=== PATIENT | female | born 1940 | race Caucasian/White ===

== ENCOUNTER 2016-07-23 11:10 | Emergency (ER) | payer MEDICARE, OTHER ==
[~2016-07-23] VITALS: Ht 160 cm; Wt 72.4 kg
[~2016-07-23 11:10] MED LIST: AMLO10TA2 PO; ASPI-557 PO; AZAT50TA PO; CALC-1012; CLOP75TA; COLE625T PO; HYDR25TA PO; LACT10SO8 PO; LOSA50TA52 PO; MULT-57 PO; OMEP-122 PO; [UNRECOGNIZED DRUG - CODE] PO
[2016-07-23 11:11] VITALS: Ht 160 cm; Wt 72.4 kg
--- OUTSIDE RECORDS SUMMARY | 2016-07-23 11:14 | XMS REPORT | Continuity of Care Document ---
Author Author [facility] Organization [facility] Address Unknown Phone Unavailable Support Name Relationship Address Phone REBEKAH WRAY MD Caregiver [address] [place] [address] [place] [phone] WILLIAM MARRERO DO Caregiver [facility] [address] [place] [address] MERVAT SKAGGS MD Caregiver [address] [place] [address] [place] [phone] ASIF MYRICK Next Of Kin [address] [place], [place] [id number] Insurance Providers Payer Name Policy Number Subscriber Name Relationship Medicare [id number] Kaylee Easton 18 Self [employer] Other [id number] Kaylee Easton 18 Self Advance Directives Directive Response Recorded Date/Time Advanced Directives Type Living Will DPOA for Healthcare 12/26/13 10:54am Problems Medical Problems Problem Onset Date Status Valvular heart disease Unknown Active Tachy-lexis syndrome Unknown Active Atrial fibrillation with rapid ventricular response Unknown Active Medications Medication Dose Route Sig Days/Qty Instructions Order Date Discontinued Date Status Multivitamin 12/26/13 Active Clopidogrel Bisulfate DAILY 12/26/13 Active Aspirin 1 Tab PO DAILY 12/26/13 Active Hydrochlorothiazide 1 Tab PO GIVE WITH BREAKFAST 12/26/13 Active Azathioprine 150 DAILY 12/26/13 Active Lactulose 10 G PO DAILY 12/26/13 Active Losartan Potassium 50 Mg PO TWICE A DAY 12/26/13 Active Hydralazine HCl 1 Tab PO TWICE A DAY BEST TAKEN WITH MEALS. 12/26/13 Active Amlodipine Besylate 10 Mg PO BEDTIME 12/26/13 Active Omeprazole 20 Mg PO BEDTIME 12/26/13 Active Colesevelam HCl 1,875 Mg PO DAILY 12/26/13 Active Calcium Carb & Cit/Vitamin D3 BEDTIME 12/26/13 Active Social History Social History Problem Response Recorded Date/Time Smoking Status Never smoker 12/26/2013 11:47am Hx Alcohol Use No 12/26/2013 11:47am Query Response Start Date Stop Date Smoking Status Unknown if ever smoked Hospital Discharge Instructions No hospital discharge instructions. Plan of Care No plan of care. Functional Status Query Response Date Recorded Physical Hygiene Self December 26, 2013 11:47am Disabilities None December 26, 2013 11:47am Devices Used None December 26, 2013 11:47am Dressing Self December 26, 2013 11:47am Ambulation Self December 26, 2013 11:47am Diet Self December 26, 2013 11:47am Mental Status Alert Oriented December 26, 2013 1:37pm Disabilities None December 26, 2013 11:47am Devices Used None December 26, 2013 11:47am Physical Hygiene Self December 26, 2013 11:47am Dressing Self December 26, 2013 11:47am Ambulation Self December 26, 2013 11:47am Diet Self December 26, 2013 11:47am Allergies, Adverse Reactions, Alerts Allergen Type Severity Reaction Status Last Updated IVP DYE Allergy Severe Active 05/23/12 Immunizations Name Given Type Hx Tetanus, Diptheria, Pertussis skin intact Historical Hx Tetanus, Diptheria, Pertussis skin intact Historical Vital Signs Acute Vital Signs Vital Response Date/Time Temperature (Fahrenheit) 97.4 deg F (96.8 - 99.1) Temperature (Calculated Celsius) 36.69574 degrees C (36.0 - 37.3) Pulse Rate (adult) 61 bpm (60 - 100) Respiratory Rate 20 breaths/min (10 - 20) O2 Sat by Pulse Oximetry 100 % (90 - 100) Oxygen Flow Rate 2 L/min Blood Pressure 135/63 mm Hg Height 5 ft 2 in Weight 143 lb Body Mass Index 26.0 kg/m^2 Results Test Source Date Result Interp. Ref. Range Comments Alanine Aminotransferase (ALT/SGPT) December 26, 2013 11:06am 32 U/L N 9- 52 Albumin December 26, 2013 11:06am 4.7 G/DL N 3.5-5.0 Albumin/Globulin Ratio December 26, 2013 11:06am 1.3 RATIO N 1.1-2.2 Alkaline Phosphatase December 26, 2013 11:06am 123 U/L N 38-126 Anion Gap December 26, 2013 11:06am 13 MEQ/L N 5-15 Aspartate Amino Transf (AST/SGOT) December 26, 2013 11:06am 43 U/L H 14- 36 BUN/Creatinine Ratio December 26, 2013 11:06am 23 RATIO N 6-26 Basophils # (Auto) December 26, 2013 11:06am 0.0 T/MM3 N 0-0.2 Basophils (%) (Auto) December 26, 2013 11:06am 0.9 % N 0-2 Blood Urea Nitrogen December 26, 2013 11:06am 21.0 MG/DL H 7-17 Calcium Level December 26, 2013 11:06am 10.4 MG/DL H 8.4-10.2 Calculated Osmolality December 26, 2013 11:06am 273 MOSM/KG N 261-280 Carbon Dioxide Level December 26, 2013 11:06am 22 MEQ/L N 22-30 Chloride Level December 26, 2013 11:06am 104 MEQ/L N 98-107 Creatinine December 26, 2013 11:06am 0.9 MG/DL N 0.7-1.2 Eosinophils # (Auto) December 26, 2013 11:06am 0.1 T/MM3 N 0-0.5 Eosinophils (%) (Auto) December 26, 2013 11:06am 2.3 % N 0-4 Globulin December 26, 2013 11:06am 3.6 G/DL N 2.4-3.6 Glucose Level December 26, 2013 11:06am 134 MG/DL H 65-110 Hematocrit December 26, 2013 11:06am 36.7 % N 36-46 Hemoglobin December 26, 2013 11:06am 13.1 GM/DL N 12-16 Lymphocytes # (Auto) December 26, 2013 11:06am 0.6 T/MM3 L 1-4.8 Lymphocytes (%) (Auto) December 26, 2013 11:06am 15.0 % L 23-45 Mean Corpuscular Hemoglobin December 26, 2013 11:06am 36.8 UUG H 26-34 Mean Corpuscular Hemoglobin Concent December 26, 2013 11:06am 35.7 GM/DL N 31-37 Mean Corpuscular Volume December 26, 2013 11:06am 103.1 UM3 H 80-100 Mean Platelet Volume December 26, 2013 11:06am 9.6 UM3 N 9.4-12.4 Monocytes # (Auto) December 26, 2013 11:06am 0.3 T/MM3 N 0-0.8 Monocytes (%) (Auto) December 26, 2013 11:06am 7.3 % N 0-9.0 Neutrophils # (Auto) December 26, 2013 11:06am 3.2 T/MM3 N 1.8-7.7 Neutrophils (%) (Auto) December 26, 2013 11:06am 74.3 % H 33-66 Platelet Count December 26, 2013 11:06am 122 T/MM3 L 130-400 Potassium Level December 26, 2013 11:06am 3.9 MEQ/L N 3.6-5 RDW Standard Deviation December 26, 2013 11:06am 50.6 FL H 36.9-50.2 Red Blood Count December 26, 2013 11:06am 3.56 M/MM3 L 4.00-5.20 Sodium Level December 26, 2013 11:06am 139 MEQ/L N 134-144 Thyroid Stimulating Hormone (TSH) December 26, 2013 11:06am 1.78 MIU/L N 0.47-4.68 Total Bilirubin December 26, 2013 11:06am 1.20 MG/DL N 0.20-1.30 Total Protein December 26, 2013 11:06am 8.3 G/DL H 6.3-8.2 Troponin I December 26, 2013 11:06am < 0.012 ng/ml 0-0.12 White Blood Count December 26, 2013 11:06am 4.3 T/MM3 L 4.5-11.0 Chemistry Specimen Hemolysis December 26, 2013 11:06am < 15 0-25 0-25 : No Hemolysis.26-70: Slight Hemolysis - can falsely elevate K and Urine Protein. 71-285: Moderate Hemolysis - can falsely elevate K, Troponin I, CA 19-9, PTH, CSF GLucose, and Urine Protein, and can falsely decrease Phenytoin. 286-999: Gross Hemolysis - can falsely elevate K, Troponin I, CA 19-9, PTH, CSF Glucose, and Urine Protine, and can falsely decrease Phenytoin. Recommend specimen recollection. Turbidity December 26, 2013 11:06am < 20 0-20 Glomerular Filtration Rate Calc December 26, 2013 11:06am 61 - Immature Granulocyte # (Auto) December 26, 2013 11:06am 0.01 T/MM3 N 0.00 -0.03 Immature Granulocyte % (Auto) December 26, 2013 11:06am 0.2 % N 0.0-0.5 Icterus Index December 26, 2013 11:06am < 2 0-7 Name: KAYLEE EASTON Unit #: [id number] : 1940 Sex: F Loc / Svc: ED DOS: 12/26/13 Signed Report #: [id number] DIAGNOSTIC IMAGING REPORT TYPE OF EXAM: CHEST 1 VIEW Dictated By: DAX PORTER MD INDICATION: ITS.REASON: Afib with RVR new onset CHEST 1 VIEW: Comparison: None Findings: The lungs are clear. No pleural effusion or pneumothorax. Heart size and pulmonary vascularity are within normal limits. Mediastinal contours are normal. Dense mitral annular calcifications are noted. Overlying leads. Impression: 1. No acute cardiopulmonary disease. 2. Dense mitral annular calcifications. . Procedures No known history of procedures. Encounters Encounter Location Date/Time Departed Emergency Room [facility] 12/26/13 10:48am Recent Diagnosis
--- OUTSIDE RECORDS SUMMARY | 2016-07-23 11:14 | XMS REPORT | Referral Summary ---
Author Author [facility] Organization [facility] Address Unknown Phone Unavailable Care Team Providers Care Donor Center Technician Name Role Phone Harrison Viera Primary Care Physician [phone] Encounter VC Date(s): 09/02/15 - 09/02/15 [facility] [address] [place] [address] Discharge Diagnosis: Chronic kidney disease, stage 3 Discharge Diagnosis: Visit for suture removal Discharge Disposition: 01-Home or Self Care Attending Physician: Harrison Viera DO Admitting Physician: Harrison Viera DO Vital Signs Most recent to 1 oldest [Reference Range]: Temperature Tympanic 36.5 degC [36.6-38.1 degC] *LOW* (09/02/15 8:56 AM) Peripheral Pulse 80 bpm Rate [60-100 bpm] (09/02/15 8:56 AM) Blood Pressure 128/68 mmHg [90-140/60-90 mmHg] (09/02/15 8:56 AM) Problem List No data available for this section Allergies, Adverse Reactions, Alerts Substance Reaction Severity Status iodine Nausea/Vomiting Active Medications ALPRAZolam 0.25 mg oral tablet mg tabs, Oral, TID, 0 Refill(s) Start Date: 08/12/15 Status: Ordered amLODIPine 10 mg oral tablet tabs, Oral, Daily, 0 Refill(s) Start Date: 07/25/14 Status: Ordered azaTHIOprine 50 mg oral tablet 3 tabs, Oral, Daily, 0 Refill(s) Start Date: 07/25/14 Status: Ordered Calcium 600+D 1 tabs, Oral, Daily, 0 Refill(s) Start Date: 07/25/14 Status: Ordered guaiFENesin Oral, 0 Refill(s) Start Date: 07/25/14 Status: Ordered hydrALAZINE 10 mg oral tablet 1 tabs, Oral, BID, 0 Refill(s) Start Date: 07/25/14 Status: Ordered hydrochlorothiazide 25 mg oral tablet 1 tabs, Oral, Daily, # 30 tabs, 0 Refill(s) Start Date: 08/01/14 Status: Ordered indomethacin Oral, Daily, as needed for gout pain Start Date: 12/18/14 Status: Ordered lactulose 10 g/15 mL oral syrup 10 g 15 mL, Oral, Bedtime (once a day), as needed for constipation, 1-2 tbsp as needed at bedtime Start Date: 12/18/14 Status: Ordered losartan 100 mg oral tablet 50 mg 0.5 tabs, Oral, BID Start Date: 12/18/14 Status: Ordered multivitamin Daily, 0 Refill(s) Start Date: 07/25/14 Status: Ordered omeprazole 20 mg oral delayed release tablet tabs, Oral, Daily, 0 Refill(s) Start Date: 07/25/14 Status: Ordered sotalol 80 mg oral tablet tabs, Oral, BID, 0 Refill(s) Start Date: 07/25/14 Status: Ordered warfarin 2 mg oral tablet See Instructions, pt dosage varies depending on pt INR. Pt currently taking 3mg and 4mg weekly, but this is subject to change, # 100 tabs, 1 Refill(s), Pharmacy: [facility], pt dosage varies depending on pt INR. Pt currently taking 3mg and... Start Date: 03/19/15 Status: Ordered warfarin 3 mg oral tablet See Instructions, pt takes 3mg and 4 mg. Please supply pt with 2mg tabs, # 120 tabs, 1 Refill(s), Pharmacy: [facility], pt takes 3mg and 4 mg. Please supply pt with 2mg tabs Start Date: 03/18/15 Status: Ordered warfarin 3 mg oral tablet See Instructions, pt takes 3mg, # 120 tabs, 1 Refill(s), Pharmacy: [facility], pt takes 3mg Start Date: 05/18/15 Status: Ordered warfarin 4 mg oral tablet mg tabs, Oral, Daily, 0 Refill(s) Start Date: 08/26/15 Status: Ordered warfarin 5 mg oral tablet 5 mg 1 tabs, Oral, Daily, dose depends on pt INR, please dispense 90 tabs., # 90 tabs, 1 Refill(s), Pharmacy: [facility], 1 tabs Oral Daily,Instr: dose depends on pt INR, please dispense 90 tabs. Start Date: 07/23/15 Status: Ordered warfarin 5 mg oral tablet mg tabs, Oral, Daily, 0 Refill(s) Start Date: 08/26/15 Status: Ordered Results No data available for this section Immunizations Vaccine Date Refusal Reason influenza virus vaccine, inactivated 01/09/15 tetanus/diphtheria/pertussis, acel(Tdap) 03/27/13 zoster vaccine live 10/02/14 Procedures Procedure Date Related Diagnosis Body Site Colonoscopy1 03/27/12 Mammogram 03/27/12 Biopsy of liver gall bladder2 H/O: hysterectomy Hx of tonsillectomy Pacemaker3 [id number] 2removed [id number] Social History Social History Type Response Smoking Status Never smoker Assessment and Plan Extracted from: Title: Office Visit Note Author: Harrison Viera DO Date: 09/02/15 Assessment/Plan 1.Visit for suture removal 1. Sutures were removed without difficulty, pathology report was discussed with the patient indicating clear margins. 2. Follow-up for any new concerning skin lesions. Ordered: Office Visit Level 3 Est 70938 2.Chronic kidney disease, stage 3 1. We discussed the pathophysiology of this presentation. 2. Avoid NSAIDs. 3. Recommended decreasing hydrochlorothiazide to 12.5 mg. 4. Recheck basic metabolic profile and 6 months. 5. If this persists then we plan on sending her to Dr. Perry for further evaluation. Ordered: Office Visit Level 3 Est 85613
--- OUTSIDE RECORDS SUMMARY | 2016-07-23 11:14 | XMS REPORT | Continuity of Care Document ---
Author Author [facility] Organization [facility] Address Unknown Phone Unavailable Care Team Providers Care Heat Transfer Technician Name Role Phone Amos Napier Primary Care Physician [phone] Source Comments Some departments are not documenting in the electronic medical record. If you do not see the information that you expected, contact Release of Information in the Health Information Management department at [phone] for further assistance in locating additional records.[facility] Active Allergies and Adverse Reactions Not on File Current Medications Not on file Active Problems Not on file Social History Tobacco Use Types Packs/Day Years Used Date Never Assessed Last Filed Vital Signs Vital Sign Reading Time Taken Blood Pressure 123/76 07/19/2010 12:41 PM CDT Pulse 78 07/19/2010 12:41 PM CDT Temperature - - Respiratory Rate - - Height 1.6 m (5' 3") 07/19/2010 12:41 PM CDT Weight 73.936 kg (163 lb) 07/19/2010 12:41 PM CDT Body Mass Index 28.88 07/19/2010 12:41 PM CDT Oxygen Saturation - - Plan of Care Health Maintenance Due Date Last Done Comments Physical (Comprehensive) 06/22/1947 Exam Pertussis Vaccine 06/22/1951 Tetanus Vaccine 1957 Shingles Vaccine 2000 Osteoporosis Screening 2005 Prevnar/Pneumovax (#1) 2005 Influenza Vaccine 11/25/2016 Results from Last 3 Months Not on file
--- OUTSIDE RECORDS SUMMARY | 2016-07-23 11:15 | XMS REPORT | Referral Summary ---
Author Author [facility] Organization 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 Discharge Disposition: -Home or Self Care Attending Physician: Harrison Viera DO Admitting Physician: Harrison Viera DO Vital Signs Most recent to 1 oldest [Reference Range]: Temperature Tympanic 34.9 degC [36.6-38.1 degC] *LOW* (10/02/14 9:52 AM) Peripheral Pulse 88 bpm Rate [60-100 bpm] (10/02/14 9:52 AM) Blood Pressure 134/68 mmHg [90-140/60-90 mmHg] (10/02/14 9:52 AM) Problem List No data available for this section Allergies, Adverse Reactions, Alerts Substance Reaction Severity Status iodine Nausea/Vomiting Active Medications amLODIPine 10 mg oral tablet tabs, Oral, Daily, 0 Refill(s) Start Date: 07/25/14 Status: Ordered atorvastatin 40 mg oral tablet 40 mg 1 tabs, Oral, Daily, # 90 tabs, 1 Refill(s), Pharmacy: [facility], 1 tabs Oral Daily,x90 days Start Date: 02/17/15 Stop Date: 08/16/15 Status: Ordered azaTHIOprine 50 mg oral tablet [...] change, # 100 tabs, 1 Refill(s), Pharmacy: [facility], pt dosage varies depending on pt INR. Pt currently taking 3mg and... Start Date: 03/19/15 Status: Ordered warfarin 3 mg oral tablet See Instructions, pt takes 3mg and 4 mg. Please supply pt with 2mg tabs, # 120 tabs, 1 Refill(s), Pharmacy: [facility], pt takes 3mg and 4 mg. Please supply pt with 2mg tabs Start Date: 03/18/15 Status: Ordered Zetia 10 mg oral tablet 10 mg 1 tabs, Oral, Daily, Hold med till pt requests, # 30 tabs, 0 Refill(s), Pharmacy: [facility] #[id number], 1 tabs Oral Daily,Instr:Hold med till pt requests Start Date: 10/03/14 Status: Ordered Results Hematology Most recent to 1 2 oldest [Reference Range]: WBC [4.8-10.8 4.4 10*3/uL 10*3/uL] *LOW* (10/02/14 11:17 AM) RBC [4.00-5.20 3.44 10*6/uL 10*6/uL] *LOW* (10/02/14 11:17 AM) Hgb [12.0-16.0 12.6 gm/dL gm/dL] (10/02/14 11:17 AM) Hct [37.0-47.0 %] 34.6 % *LOW* (10/02/14 11:17 AM) MCV [82.0-99.0 fL] 100.6 fL *HI* (10/02/14 11:17 AM) MCH [27.0-32.0 pg] 36.6 pg *HI* (10/02/14 11:17 AM) MCHC [32.0-36.0 36.4 gm/dL gm/dL] *HI* (10/02/14 11:17 AM) RDW [11.5-14.5 %] 14.0 % (10/02/14 11:17 AM) Platelet [150-400 145 10*3/uL 10*3/uL] *LOW* (10/02/14 11:17 AM) MPV [8.8-14.8 fL] 9.8 fL (10/02/14 11:17 AM) Immature 0.0 % Granulocytes (10/02/14:17 AM) [0.0-1.0 %] Neutrophils [51-75 69 % %] (10/02/14 11:17 AM) Lymphocytes [20-46 18 % %] *LOW* (10/02/14 11:17 AM) Monocytes [4-11 %] 8 % (10/02/14 11:17 AM) Eosinophils [0-4 %] 4 % (10/02/14 11:17 AM) Basophils [0-2 %] 1 % (10/02/14 11:17 AM) Neutro Absolute 3.03 10*3 [1.90-7.00 10*3] (10/02/1417 AM) Lymph Absolute 0.81 10*3 [0.80-3.30 10*3] (10/02/1417 AM) [place] Absolute 0.35 10*3 [0.30-1.00 10*3] (10/02/14 AM) Eos Absolute 0.18 10*3 [0.00-0.50 10*3] (10/02/14 AM) Baso Absolute 0.03 10*3 [0.00-0.20 10*3] (10/02/14 AM) Chemistry Most recent to 1 2 oldest [Reference Range]: Sodium Lvl [135-144 136 mEq/L mEq/L] (10/02/14 AM) Potassium Lvl 4.1 mEq/L [3.5-5.2 mEq/L] (10/02/14 AM) Chloride [99-111 99 mEq/L mEq/L] (10/02/14) CO2 [22-31 mEq/L] 31 mEq/L (10/02/14 AM) AGAP [3-20] 6 (10/02/14 AM) BUN [10-20 mg/dL] 14 mg/dL (10/02/14 AM) Glucose Lvl [70-99 110 mg/dL mg/dL] *HI* (10/02/14 AM) Creatinine Lvl 0.85 mg/dL [0.57-1.11 mg/dL] (10/02/14 AM) eGFR [>60 mL/min] >60 mL/min 1 (10/02/14 AM) Calcium Lvl 10.4 mg/dL [8.9-10.5 mg/dL] (10/02/14 AM) Albumin Lvl [3.4-4.8 4.2 gm/dL 4.3 gm/dL gm/dL] (10/02/1417 AM) (10/02/14 AM) Total Protein 7.8 gm/dL 7.9 gm/dL [6.2-8.1 gm/dL] (10/02/14 AM) (7/9/15 11:17 AM) Globulin [1.8-4.0 3.6 gm/dL gm/dL] (10/02/14 1117 AM) ALT [0-55 U/L] 19 U/L 19 U/L (10/02/14 11:17 AM) (10/02/14 11:17 AM) AST [5-34 U/L] 45 U/L 46 U/L *HI* *HI* (10/02/14:17 AM) (10/02/14 1117 AM) Alk Phos [40-150 101 U/L 100 U/L U/L] (10/02/14 11:17 AM) (10/02/14 11:17 AM) Bili Total [0.2-1.2 1.0 mg/dL 1.0 mg/dL mg/dL] (10/02/14 11:17 AM) (10/02/14 11:17 AM) Bili Direct [0.0-0.5 0.3 mg/dL mg/dL] (10/02/14: AM) Bili Indirect 0.7 mg/dL [0.0-1.0 mg/dL] (10/02/14 11:17 AM) Chol [0-199 mg/dL] 261 mg/dL *HI* (10/02/14 11:17 AM) Trig [0-149 mg/dL] 246 mg/dL *HI* (10/02/14: AM) HDL [40-84 mg/dL] 51 mg/dL (10/02/14 AM) LDL [0-130 mg/dL] 161 mg/dL *HI* (10/02/14 11:17 AM) VLDL Cholesterol 49 mg/dL [0-28 mg/dL] *HI* (10/02/14 11:17 AM) Cardiac Risk 5.1 [0.0-5.0] *HI* (10/02/14 11:17 AM) 1Result Comment: Multiply eGFR results by 1.21 for race. Immunizations Vaccine Date Refusal Reason influenza virus vaccine, inactivated 01/09/15 tetanus/diphtheria/pertussis, acel(Tdap) 03/27/13 zoster vaccine live 10/02/14 Procedures Procedure Date Related Diagnosis Body Site Colonoscopy1 03/27/12 Mammogram 03/27/12 Biopsy of liver gall bladder2 H/O: hysterectomy Hx of tonsillectomy Pacemaker3 [id number] 2removed [id number] Social History Social History Type Response Smoking Status Never smoker Assessment and Plan Extracted from: Title: Office Visit Note Author: Harrison Viera DO Date: 10/02/14 Assessment/Plan Anxiety 1. Since she is using this medication very sporadically and a prescription of 30 pills last for almost 2 years we will go ahead and refill the medication. 2. Should she start needing the medication on a more consistent basis and requesting refills on a monthly basis then we may consider changing her to Lexapro appears citalopram. Patient and her family voiced understanding. 3. Risks and benefits of being on this medication was discussed in detail with the patient and her daughters who were present today. Ordered: ALPRAZolam, 0.25 mg 1 tabs, Oral, q6hr, as needed for anxiety, # 30 tabs, 0 Refill(s) Office Visit Level 4 Est 97417 Degenerative joint disease (DJD) of hip 1. I suspect her hip and thigh pain is related to her hip joint. 2. We ' ll order imaging to rule out degenerative joint disease. 3. If she has significant degenerative changes then we plan on sending her to delivery specialist for further evaluation. Ordered: CBC w/ Differential Comprehensive Metabolic Panel XR Hip Complete Left XR Hip Complete Right Hyperlipidemia 1. Continue with the WelChol for her current prescription. 2. Will order fasting lipids today, once we get results we will discuss with the patient. 3. Additionally, we'll get liver function tests and CBC as requested by her buying intern and send him a copy of the report. 4. When she is completed the WelChol prescription we may consider changing her to Zetia or another lipid agent. Note made that she is allergic to statins and we'll try to avoid this class of medication. 5. Recommended following up in 2 months and to bring in her medications at next visit. Ordered: Lipid Panel Need for Zostavax administration Given today.
--- OUTSIDE RECORDS SUMMARY | 2016-07-23 11:15 | XMS REPORT | Referral Summary ---
Author Author [facility] Organization [facility] Address Unknown Phone Unavailable Care Team Providers Care Fountain Clerk Name Role Phone Harrison Viera Primary Care Physician [phone] Encounter VC Date(s): 04/29/16 - 04/29/16 [facility] [address] [place] [address] Discharge Diagnosis: Acute bacterial bronchitis Discharge Disposition: 01-Home or Self Care Attending Physician: Harrison Viera DO Admitting Physician: Harrison Viera DO Vital Signs Most recent to 1 oldest [Reference Range]: Temperature Tympanic 39.0 degC [36.6-38.1 degC] *HI* (04/29/16 2:34 PM) Peripheral Pulse 68 bpm Rate [60-100 bpm] (04/29/16 2:34 PM) Respiratory Rate 18 br/min [14-20 br/min] (04/29/16 2:34 PM) Blood Pressure 140/60 mmHg [90-140/60-90 mmHg] (04/29/16 2:34 PM) SpO2 97 % (04/29/16 2:34 PM) Problem List Condition Effective Dates Status Health Status Informant Morbid Active patient obesity(Confirmed) Allergies, Adverse Reactions, Alerts Substance Reaction Severity Status iodine Nausea/Vomiting Active Medications ALPRAZolam 0.25 mg oral tablet See Instructions, TAKE ONE TAB EVERY 6 HOURS NEEDED FOR ANXIETY, # 30 tabs, 0 Refill(s) Start Date: 04/29/16 Stop Date: 05/27/16 Status: Ordered amLODIPine 10 mg oral tablet tabs, Oral, Daily, 0 Refill(s) Start Date: 07/25/14 Status: Ordered atorvastatin 40 mg oral tablet See Instructions, Take 1 tablet by mouth daily, # 90 tabs, 2 Refill(s), eRx: [facility], Take 1 tablet by mouth daily Start Date: 01/20/16 Status: Ordered azaTHIOprine 50 mg oral tablet 3 tabs, Oral, Daily, 0 Refill(s) Start Date: 07/25/14 Status: Ordered Calcium 600+D 1 tabs, Oral, Daily, 0 Refill(s) Start Date: 07/25/14 Status: Ordered guaiFENesin Oral, 0 Refill(s) Start Date: 07/25/14 Status: Ordered hydrALAZINE 10 mg oral tablet 1 tabs, Oral, BID, 0 Refill(s) Start Date: 07/25/14 Status: Ordered hydrochlorothiazide 25 mg oral tablet 12.5 mg 0.5 tabs, Oral, Daily, # 30 tabs, 0 Refill(s) Start Date: 08/01/14 Status: Ordered indomethacin 25 mg oral capsule 25 mg 1 caps, Oral, Daily, as needed for gout pain, # 30 caps, 1 Refill(s), Pharmacy: [facility] #[id number], 1 caps Oral Daily,PRN:as needed for gout pain Start Date: 10/29/15 Status: Ordered lactulose 10 g/15 mL oral [...] 0 Refill(s) Start Date: 07/25/14 Status: Ordered predniSONE 20 mg oral tablet 20 mg 1 tabs, Oral, Daily, X 5 days, # 5 tabs, 0 Refill(s), Pharmacy: [facility] #[id number], 1 tabs Oral Daily,x5 days Start Date: 04/29/16 Stop Date: 05/04/16 Status: Ordered Promethazine with Codeine 6.25 mg-10 mg/5 mL oral syrup 5 mL, Oral, q6hr, as needed for cough, not to exceed 30 mL/24 hours, # 120 mL, 0 Refill(s) Start Date: 04/29/16 Stop Date: 05/27/16 Status: Ordered sotalol 80 mg oral tablet tabs, Oral, BID, 0 Refill(s) Start Date: 07/25/14 Status: Ordered Ventolin HFA 90 mcg/inh inhalation aerosol 2 puffs, Inhalation, q4hr, as needed for wheezing, # 1 inhalers, 1 Refill(s), Pharmacy: [facility] #[id number], 2 puffs Inhalation q4hr,PRN:as needed for wheezing Start Date: 04/29/16 Status: Ordered warfarin 2 mg oral tablet See Instructions, Take by mouth total of 3mg and 4mg weekly as directed, # 100 tabs, 2 Refill(s), eRx: [facility], Take by mouth total of 3mg and 4mg weekly as directed Start Date: 01/20/16 Status: Ordered warfarin 3 mg oral tablet 3 mg 1 tabs, Oral, Daily, # 90 tabs, 3 Refill(s), Pharmacy: [facility], 1 tabs Oral Daily,x90 days Start Date: 03/24/16 Stop Date: 03/19/17 Status: Ordered warfarin 5 mg oral tablet 5 mg 1 tabs, Oral, Daily, # 90 tabs, 3 Refill(s), Pharmacy: [facility], 1 tabs Oral Daily,x90 days Start Date: 03/24/16 Stop Date: 03/19/17 Status: Ordered Zithromax Z-Jovon 250 mg oral tablet 1 packets, Oral, Daily, as directed on package labeling, X 5 days, # 6 tabs, 0 Refill(s), Pharmacy: [facility] #[id number], 1 packets Oral Daily,x5 days, Instr:as directed on package labeling Start Date: 04/29/16 Stop Date: 05/04/16 Status: Ordered Results Hematology Most recent to 1 oldest [Reference Range]: WBC [5.0-10.0 2.3 10*3/uL 10*3/uL] *LOW* (04/29/16 3:18 PM) RBC [3.70-5.20] 2.80 *LOW* (04/29/16 3:18 PM) Hgb [12.0-16.0 10.5 gm/dL gm/dL] *LOW* (04/29/16 3:18 PM) Hct [37.0-47.0 %] 30.2 % *LOW* (04/29/16 3:18 PM) MCV [80.0-96.0 fL] 107.9 fL *HI* (04/29/16 3:18 PM) MCH [26.0-34.0 pg] 37.5 pg *HI* (04/29/16 3:18 PM) MCHC [32.0-36.0 34.8 gm/dL gm/dL] (04/29/16 3:18 PM) RDW [0.0-14.5 %] 14.4 % (04/29/16 3:18 PM) Platelet [150-400 118 10*3/uL 10*3/uL] *LOW* (04/29/16 3:18 PM) MPV [8.8-14.8 fL] 9.4 fL (04/29/16 3:18 PM) Neutrophils [50-70 53 % %] (04/29/16 3:18 PM) Band Man [0-6 %] 15 % *HI* (04/29/16 3:18 PM) Lymphocytes [20-40 19 % %] *LOW* (04/29/16 3:18 PM) Monocytes [4-8 %] 6 % (04/29/16 3:18 PM) Eosinophils [0-6 %] 6 % (04/29/16 3:18 PM) Basophils [0-2 %] 1 % (04/29/16 3:18 PM) Neutro Absolute 1.56 [2.50-7.00] *LOW* (04/29/16 3:18 PM) Lymph Absolute 0.44 [1.00-4.00] *LOW* (04/29/16 3:18 PM) [place] Absolute 0.14 [0.20-0.80] *LOW* (04/29/16 3:18 PM) Eos Absolute 0.14 [0.00-0.60] (04/29/16 3:18 PM) Baso Absolute 0.02 [0.00-0.30] (04/29/16 3:18 PM) Hypochrom Occasional *ABN* (04/29/16 3:18 PM) Polychrom Occasional *ABN* (04/29/16 3:18 PM) Tear Cell Occasional *ABN* (04/29/16 3:18 PM) Ovalocytes Occasional *ABN* (04/29/16 3:18 PM) Immunizations Given and Recorded Vaccine Date Status Refusal Reason influenza virus vaccine, inactivated 01/09/15 Given tetanus/diphtheria/pertussis, acel(Tdap) 03/27/13 Recorded zoster vaccine live 10/02/14 Given Procedures Procedure Date Related Diagnosis Body Site Colonoscopy1 03/27/12 Mammogram 03/27/12 Biopsy of liver gall bladder2 H/O: hysterectomy Hx of tonsillectomy Pacemaker3 [id number] 2removed [id number] Social History Social History Type Response Smoking Status Never smoker Assessment and Plan Extracted from: Title: Clinical Pharmacist - Author: Lindsey Elena PharmD Date: Inhaler Education Albuterol inhaler for short term therapy during acute respiratory illnes was initiated today. PCP requested inhaler technique education by clinical pharmacist. PCP is Dr. Viera. Education provided: Medication class, mechanism of action, reason for use, common adverse effects, dose, and dosingfrequency. Instructed patient and demonstrated on proper administration/inhaler technique. A stepwise approach was used. Patient able to demonstrate proper technique. Questions answered. Patient's daughter also present and has used a rescue inhaler in the past - she offered to help patient, if needed, once they got home. Thank you for allowing clinical pharmacy services to play a role in the care of this patient. Addendum I reviewed this chart, the patient s medical history, and the by Aylin, Resident s/AIRPLANE DISPATCH CLERK s/PA/RN s/PharmD s documented findings, and concur with the Harrison WEBB assessment and plan as above. on April 29, 2016 16:47 DIRECTOR OF HEAD START Extracted from: Title: Office Visit Note Author: Harrison Viera DO Date: 04/29/16 Assessment/Plan 1.Acute bacterial bronchitis 1. Flu swab was negative for both A and B. 2. History and clinical findings concerning for acute bacterial bronchitis versus early pneumonia. She was started on Z-Jovon take as directed for 5 days. 3. DuoNeb was given in the office to help with her wheezing and respiratory distress. She had improvement following her breathing treatment. She was dismissed to home with Ventolin, 2 puffs every 4 hours as needed. Clinical pharmacistinstructed patient on the proper use of this device. 4. Chest x-ray and CBC were essentially normal. 5. Prednisone 20 mg daily for 5 days. 6. Follow-up if worsening presentationor if no improvement after the above treatment plan. 7. Over an hour was spent [id number]-agfe with this patient today. Ordered: CBC w/ Differential XR Chest 2 Views
--- OUTSIDE RECORDS SUMMARY | 2016-07-23 11:15 | XMS REPORT | Referral Summary ---
Author Author [facility] Organization [facility] Address Unknown Phone Unavailable Care Team Providers Care Kaiako Kohanga Reo Name Role Phone Harrison Viera Primary Care Physician [phone] Encounter Date(s): 03/31/15 - 03/31/15 [facility] [address] [place] [address] Discharge Diagnosis: Cough Discharge Diagnosis: UNSPECIFIED DISORDER OF LIVER Discharge Diagnosis: Encounter for monitoring coumadin therapy Discharge Disposition: 01-Home or Self Care Attending Physician: Gee Velazco APRN Admitting Physician: Gee Velazco APRN Referring Physician: Harrison Viera DO Vital Signs Most recent to 1 oldest [Reference Range]: Temperature Tympanic 37.2 degC [36.6-38.1 degC] (03/31/15 10:05 AM) Peripheral Pulse 84 bpm Rate [60-100 bpm] (03/31/15 10:05 AM) Respiratory Rate 18 br/min [14-20 br/min] (03/31/15 10:05 AM) Blood Pressure 130/78 mmHg [90-140/60-90 mmHg] (03/31/15 10:05 AM) SpO2 98 % (03/31/15 10:05 AM) Problem List No data available for this section Allergies, Adverse Reactions, Alerts Substance Reaction Severity Status iodine Nausea/Vomiting Active Medications amLODIPine 10 mg oral tablet tabs, Oral, Daily, 0 Refill(s) Start Date: 07/25/14 Status: Ordered amoxicillin 500 mg oral tablet 500 mg 1 tabs, Oral, TID, X 10 days, # 30 tabs, 0 Refill(s), Pharmacy: [facility] #[id number], 1 tabs Oral TID,x10 days Start Date: 03/31/15 Stop Date: 04/10/15 Status: Ordered atorvastatin 40 mg oral tablet 40 mg 1 tabs, Oral, Daily, # 90 tabs, 1 Refill(s), [facility]acy: [facility], 1 tabs Oral Daily,x90 days Start [...] change, # 100 tabs, 1 Refill(s), Pharmacy: [facility], pt dosage varies depending on pt INR. Pt currently taking 3mg and... Start Date: 03/19/15 Status: Ordered warfarin 3 mg oral tablet See Instructions, pt takes 3mg and 4 mg. Please supply pt with 2mg tabs, # 120 tabs, 1 Refill(s), Pharmacy: [facility], pt takes 3mg and 4 mg. Please supply pt with 2mg tabs Start Date: 03/18/15 Status: Ordered Zetia 10 mg oral tablet 10 mg 1 tabs, Oral, Daily, Hold med till pt requests, # 30 tabs, 0 Refill(s), Pharmacy: [facility] #[id number], 1 tabs Oral Daily,Instr:Hold med till pt requests Start Date: 10/03/14 Status: Ordered Results Hematology Most recent to 1 oldest [Reference Range]: WBC [5.0-10.0 9.5 10*3/uL 10*3/uL] (03/31/15 10:50 AM) RBC [3.70-5.20] 3.08 *LOW* (03/31/15 10:50 AM) Hgb [12.0-16.0 11.3 gm/dL gm/dL] *LOW* (03/31/15 10:50 AM) Hct [37.0-47.0 %] 32.0 % *LOW* (03/31/15 10:50 AM) MCV [80.0-96.0 fL] 103.9 fL *HI* (03/31/15 10:50 AM) MCH [26.0-34.0 pg] 36.7 pg *HI* (03/31/15 10:50 AM) MCHC [32.0-36.0 35.3 gm/dL gm/dL] (03/31/15 10:50 AM) RDW [0.0-14.5 %] 15.1 % *HI* (03/31/15 10:50 AM) Platelet [150-400 274 10*3/uL 10*3/uL] (03/31/15 10:50 AM) MPV [8.8-14.8 fL] 9.1 fL (03/31/15 10:50 AM) Neutrophils [50-70 84 % %] *HI* (03/31/15 10:50 AM) Lymphocytes [20-40 4 % %] *LOW* (03/31/15 10:50 AM) Monocytes [4-8 %] 9 % *HI* (03/31/15 10:50 AM) Eosinophils [0-6 %] 2 % (03/31/15 10:50 AM) Basophils [0-2 %] 0 % (03/31/15 10:50 AM) Neutro Absolute 8.02 10*3 [2.50-7.00 10*3] *HI* (03/31/15 10:50 AM) Lymph Absolute 0.41 10*3 [1.00-4.00 10*3] *LOW* (03/31/15 10:50 AM) [place] Absolute 0.90 10*3 [0.20-0.80 10*3] *HI* (03/31/15 10:50 AM) Eos Absolute 0.19 10*3 [0.00-0.60 10*3] (03/31/15 10:50 AM) Baso Absolute 0.02 [0.00-0.30] (03/31/15 10:50 AM) Coagulation Most recent to 1 oldest [Reference Range]: PT Venous (03/31/15 10:50 AM) INR [0.8-1.2] 4.1 1 *HHI* (03/31/15 10:50 AM) 1Result Comment: Result verified by repeat analysis and called to [place] by [facility] 03/31/2015 11:22 Normal (no anticoagulant): 0.8 - 1.2 Units Routine Therapeutic Range: 2.0 - 3.0 Units High Risk Therapeutic Range: 2.5 - 3.5 Units Immunizations Vaccine Date Refusal Reason influenza virus vaccine, inactivated 01/09/15 tetanus/diphtheria/pertussis, acel(Tdap) 03/27/13 zoster vaccine live 10/02/14 Procedures Procedure Date Related Diagnosis Body Site Colonoscopy1 03/27/12 Mammogram 03/27/12 Biopsy of liver gall bladder2 H/O: hysterectomy Hx of tonsillectomy Pacemaker3 [id number] 2removed [id number] Social History Social History Type Response Smoking Status Never smoker Assessment and Plan No data available for this section
--- OUTSIDE RECORDS SUMMARY | 2016-07-23 11:15 | XMS REPORT | Referral Summary ---
Author Author [facility] Organization [facility] Address Unknown Phone Unavailable Care Team Providers Care Adviser Sales Name Role Phone Harrison Viera Primary Care Physician [phone] Encounter VC Date(s): 02/13/15 - 02/13/15 [facility] [address] [place] [address] Discharge Diagnosis: Elevated liver enzymes Discharge Diagnosis: HTN (hypertension) Discharge Diagnosis: Hyperlipidemia Discharge Disposition: 01-Home or Self Care Attending Physician: Harrison Viera DO Admitting Physician: Harrison Viera DO Vital Signs Most recent to 1 oldest [Reference Range]: Blood Pressure 130/62 mmHg [90-140/60-90 mmHg] (02/13/15 4:15 PM) Problem List No data available for this section Allergies, Adverse Reactions, Alerts Substance Reaction Severity Status iodine Nausea/Vomiting Active Medications amLODIPine 10 mg oral tablet tabs, Oral, Daily, 0 Refill(s) Start Date: 07/25/14 Status: Ordered atorvastatin 40 mg oral tablet 40 mg 1 tabs, Oral, Daily, # 30 tabs, 0 Refill(s), Pharmacy: [facility] # [id number], 1 tabs Oral Daily,x30 days Start Date: 01/27/15 Stop Date: 02/26/15 Status: Ordered azaTHIOprine 50 mg oral tablet [...] Refill(s) Start Date: 07/25/14 Status: Ordered warfarin 3 mg oral tablet tabs, Oral, Daily, take 3mg of warfarin daily, 0 Refill(s) Start Date: 07/25/14 Status: Ordered Zetia 10 mg oral tablet 10 mg 1 tabs, Oral, Daily, Hold med till pt requests, # 30 tabs, 0 Refill(s), Pharmacy: [facility] #[id number], 1 tabs Oral Daily,Instr:Hold med till pt requests Start Date: 10/03/14 Status: Ordered Results Hematology Most recent to 1 oldest [Reference Range]: WBC [4.8-10.8 4.5 10*3/uL 10*3/uL] *LOW* (02/13/15 4:42 PM) RBC [4.00-5.20] 3.23 *LOW* (02/13/15 4:42 PM) Hgb [12.0-16.0 11.6 gm/dL gm/dL] *LOW* (02/13/15 4:42 PM) Hct [37.0-47.0 %] 33.4 % *LOW* (02/13/15 4:42 PM) MCV [82.0-99.0 fL] 103.4 fL *HI* (02/13/15 4:42 PM) MCH [27.0-32.0 pg] 35.9 pg *HI* (02/13/15 4:42 PM) MCHC [32.0-36.0 34.7 gm/dL gm/dL] (02/13/15 4:42 PM) RDW [11.5-14.5 %] 14.2 % (02/13/15 4:42 PM) Platelet [150-400 198 10*3/uL 10*3/uL] (02/13/15 4:42 PM) MPV [8.8-14.8 fL] 9.6 fL (02/13/15 4:42 PM) Immature 0.4 % Granulocytes (02/13/15 4:42 PM) [0.0-1.0 %] Neutrophils [51-75 66 % %] (02/13/15 4:42 PM) Lymphocytes [20-46 15 % %] *LOW* (02/13/15 4:42 PM) Monocytes [4-11 %] 7 % (02/13/15 4:42 PM) Eosinophils [0-4 %] 11 % *HI* (02/13/15 4:42 PM) Basophils [0-2 %] 0 % (02/13/15 4:42 PM) Neutro Absolute 2.98 10*3 [1.90-7.00 10*3] (02/13/15 4:42 PM) Lymph Absolute 0.69 10*3 [0.80-3.30 10*3] *LOW* (02/13/15 4:42 PM) [place] Absolute 0.30 10*3 [0.30-1.00 10*3] (02/13/15 4:42 PM) Eos Absolute 0.48 10*3 [0.00-0.50 10*3] (02/13/15 4:42 PM) Baso Absolute 0.02 10*3 [0.00-0.20 10*3] (02/13/15 4:42 PM) Chemistry Most recent to 1 oldest [Reference Range]: Sodium Lvl [135-144 133 mEq/L mEq/L] *LOW* (02/13/15 4:42 PM) Potassium Lvl 4.7 mEq/L [3.5-5.2 mEq/L] (02/13/15 4:42 PM) Chloride [99-111 101 mEq/L mEq/L] (02/13/15 4:42 PM) CO2 [22-31 mEq/L] 24 mEq/L (02/13/15 4:42 PM) AGAP [3-20] 8 (02/13/15 4:42 PM) BUN [10-20 mg/dL] 23 mg/dL *HI* (02/13/15 4:42 PM) Glucose Lvl [70-99 99 mg/dL mg/dL] (02/13/15 4:42 PM) Creatinine Lvl 0.97 mg/dL [0.57-1.11 mg/dL] (02/13/15 4:42 PM) eGFR [>60 mL/min] 56 mL/min 1 *ABN* (02/13/15 4:42 PM) Calcium Lvl 9.9 mg/dL [8.9-10.5 mg/dL] (02/13/15 4:42 PM) Albumin Lvl [3.4-4.8 3.8 gm/dL gm/dL] (02/13/15 4:42 PM) Total Protein 7.6 gm/dL [6.2-8.1 gm/dL] (02/13/15 4:42 PM) Globulin [1.8-4.0 3.8 gm/dL gm/dL] (02/13/15 4:42 PM) ALT [0-55 U/L] 50 U/L (02/13/15 4:42 PM) AST [5-34 U/L] 81 U/L *HI* (02/13/15 4:42 PM) Alk Phos [40-150 207 U/L U/L] *HI* (02/13/15 4:42 PM) Bili Total [0.2-1.2 1.4 mg/dL mg/dL] *HI* (02/13/15 4:42 PM) Chol [0-199 mg/dL] 122 mg/dL (02/13/15 4:42 PM) Trig [0-149 mg/dL] 70 mg/dL (02/13/15 4:42 PM) HDL [40-84 mg/dL] 35 mg/dL *LOW* (02/13/15 4:42 PM) LDL [0-130 mg/dL] 73 mg/dL (02/13/15 4:42 PM) VLDL Cholesterol 14 mg/dL [0-28 mg/dL] (02/13/15 4:42 PM) Cardiac Risk 3.5 [0.0-5.0] (02/13/15 4:42 PM) 1Result Comment: Multiply eGFR results by 1.21 for race. Immunizations Vaccine Date Refusal Reason influenza virus vaccine, inactivated 01/09/15 tetanus/diphtheria/pertussis, acel(Tdap) 03/27/13 zoster vaccine live 10/02/14 Procedures Procedure Date Related Diagnosis Body Site Colonoscopy1 03/27/12 Mammogram 03/27/12 Biopsy of liver gall bladder2 H/O: hysterectomy Hx of tonsillectomy Pacemaker3 02402 2removed [id number] Social History Social History Type Response Smoking Status Never smoker Assessment and Plan Extracted from: Title: Office Visit Note Author: Harrison Viera DO Date: 02/13/15 Assessment/Plan Elevated liver enzymes 1. As requested her crm coordinator, CBC and complete metabolic profile ordered today. Once we get results we will discuss with the patient and send a copy to the crm coordinator. Ordered: CBC w/ Differential Comprehensive Metabolic Panel Lipid Panel Office Visit Level 4 Est 23279 HTN (hypertension) 1.Blood pressures well controlled. Hyperlipidemia 1. Lipid panel ordered today, report is pending. 2. Continue with atorvastatin, if her liver enzymes are within normal limits then we will continue the medication. Ordered: Office Visit Level 4 Est 06608
--- OUTSIDE RECORDS SUMMARY | 2016-07-23 11:15 | XMS REPORT | Referral Summary ---
Author Author [facility] Organization [facility] Address Unknown Phone Unavailable Care Team Providers Care Garde Manager Name Role Phone Harrison Viera Primary Care Physician [phone] Encounter [facility] [id number] Date(s): 08/01/14 - 08/01/14 [facility] [address] [place] [address] Discharge Diagnosis: Liver disease Discharge Diagnosis: Polypharmacy Discharge Diagnosis: Keratosis, inflamed seborrheic Discharge Diagnosis: Hypertension Discharge Diagnosis: Encounter for monitoring coumadin therapy Discharge Diagnosis: Atrial fibrillation Discharge Diagnosis: Inflamed seborrheic keratosis Discharge Disposition: 01-Home or Self Care Attending Physician: Harrison Viera DO Admitting Physician: Harrison Viera DO Vital Signs Most recent to 1 oldest [Reference Range]: Temperature Tympanic 35.9 degC [36.6-38.1 degC] *LOW* (08/01/14 8:56 AM) Peripheral Pulse 64 bpm Rate [60-100 bpm] (08/01/14 8:56 AM) Blood Pressure 117/59 mmHg [90-140/60-90 mmHg] (08/01/14 8:56 AM) Problem List No data available for this section Allergies, Adverse Reactions, Alerts Substance Reaction Severity Status iodine Nausea/Vomiting Active Medications amLODIPine 10 mg oral tablet tabs, Oral, Daily, 0 Refill(s) Start Date: 07/25/14 Status: Ordered atorvastatin 40 mg oral tablet 40 mg 1 tabs, Oral, Daily, # 30 tabs, 0 Refill(s), Pharmacy: [facility] # [id number], 1 tabs Oral Daily,x30 days Start Date: [...] requests, # 30 tabs, 0 Refill(s), Pharmacy: [facility] #[id number], 1 tabs Oral Daily,Instr:Hold med till pt requests Start Date: 10/03/14 Status: Ordered Results No data available for this section Immunizations Vaccine Date Refusal Reason influenza virus vaccine, inactivated 01/09/15 tetanus/diphtheria/pertussis, acel(Tdap) 03/27/13 zoster vaccine live 10/02/14 Procedures Procedure Date Related Diagnosis Body Site Shaving of epidermal or dermal lesion, single 08/01/14 lesion, face, ears, eyelids, nose, lips, mucous membrane; lesion diameter 0.6 to 1.0 cm Colonoscopy1 03/27/12 Mammogram 03/27/12 Biopsy of liver gall bladder2 H/O: hysterectomy Hx of tonsillectomy Pacemaker3 [id number] 2removed [id number] Social History Social History Type Response Smoking Status Never smoker Assessment and Plan Extracted from: Title: Admission H & P New patient Author: Harrison Viera Date: 08/01/14 encounter Assessment/Plan Atrial fibrillation 1. She continues to be in A. fib with rate controlled. 2. Continue with Coumadin daily. 3. Her last INR was 2.2 4 days ago, repeat INR in one month. Ordered: Office Visit Level 5 Est 54973 Encounter for monitoring coumadin therapy 1. Continue with Coumadin daily. 2. Her last INR was 2.2 4 days ago, repeat INR in one month. Ordered: Office Visit Level 5 Est 31338 Hypertension blood pressures well controlled. Ordered: Office Visit Level 5 Est 95260 Inflamed seborrheic keratosis Given that this lesion has been frozen twice and it keeps coming back I recommended shave biopsy to which she agreed. Procedure: Shave biopsy Location: Right inner ear Indication: Recurrent inflamed keratosis Medication: One percent lidocaine, 1 mL Tissue: Tissue sample sent to pathology Description: With the patient laid in the supine position and the head rotated to the left , the inner ear was cleansed with alcohol followed by Betadine. Local anesthesia was achieved with one percent lidocaine infiltrated at the base of the lesion. Once anesthesia was achieved, using a derma blade shave biopsy was done of approximately 1 cm. Hemostasis was assured using heat cautery. Dry dressing was applied and wound care injections provided. Tissue was sent to pathology for review, once we get reports we will discuss with the patient. Ordered: Office Visit Level 5 Est 48487 shvg skin lesion 1 f/e/e/n/l/m diam 0.6-1.0 cm 88899 Liver disease 1. Continue with solution make up operator for management of her liver disease. 2. We will order the CBC and liver panel to be done in August in preparation for her next appointment. Ordered: Office Visit Level 5 Est 40158 Polypharmacy 1. Her medications were reviewed. 2. We will refill them as needed. 3. If she started to have any problems with her medications then we plan on having her see the clinical pharmacist for recommendations. Ordered: Office Visit Level 5 Est 97805
--- OUTSIDE RECORDS SUMMARY | 2016-07-23 11:15 | XMS REPORT | Referral Summary ---
Author Author [facility], Family Medicine Organization [facility] Address Unknown Phone Unavailable Care Team Providers Care Wholesale And Retail Merchant Name Role Phone Harrison Viera Primary Care Physician [phone] Encounter VC Date(s): 12/04/15 - 12/04/15 [facility], [address] [place] [address] Discharge Diagnosis: Dependent edema Discharge Disposition: 01-Home or Self Care Attending Physician: Harrison Viera DO Admitting Physician: Harrison Viera DO Vital Signs Most recent to 1 oldest [Reference Range]: Temperature Tympanic 35.5 degC [36.6-38.1 degC] *LOW* (12/04/15 9:31 AM) Peripheral Pulse 75 bpm Rate [60-100 bpm] (12/04/15 9:31 AM) Blood Pressure 136/65 mmHg [90-140/60-90 mmHg] (12/04/15 9:31 AM) Problem List No data available for [...] pain, # 30 caps, 1 Refill(s), Pharmacy: [facility] #[id number], 1 caps Oral Daily,PRN:as needed for gout [...] change, # 100 tabs, 1 Refill(s), [facility]: [facility], pt dosage varies depending on pt INR. Pt currently taking 3mg and... Start Date: 03/19/15 Status: Ordered warfarin 3 mg oral tablet See Instructions, pt takes 3mg and 4 mg. Please supply pt with 2mg tabs, # 120 tabs, 1 Refill(s), Pharmacy: [facility], pt takes 3mg and 4 mg. Please supply pt with 2mg tabs Start Date: 03/18/15 Status: Ordered warfarin 3 mg oral tablet See Instructions, pt takes 3mg, # 120 tabs, 1 Refill(s), Pharmacy: [facility], pt takes 3mg Start Date: 05/18/15 Status: Ordered warfarin 4 mg oral tablet mg tabs, Oral, Daily, 0 Refill(s) Start Date: 08/26/15 Status: Ordered warfarin 5 mg oral tablet 5 mg 1 tabs, Oral, Daily, dose depends on pt INR, please dispense 90 tabs., # 90 tabs, 1 Refill(s), Pharmacy: [email or web address], 1 tabs Oral Daily,Instr: dose depends on pt INR, please dispense 90 tabs. Start Date: 07/23/15 Status: Ordered warfarin 5 mg oral tablet mg tabs, Oral, Daily, 0 Refill(s) Start Date: 08/26/15 Status: Ordered Results Hematology Most recent to 1 oldest [Reference Range]: WBC [4.8-10.8 3.4 10*3/uL 10*3/uL] *LOW* (12/04/15 9:25 AM) RBC [4.00-5.20] 2.60 *LOW* (12/04/15 9:25 AM) Hgb [12.0-16.0 9.6 gm/dL gm/dL] *LOW* (12/04/15 9:25 AM) Hct [37.0-47.0 %] 27.9 % *LOW* (12/04/15 9:25 AM) MCV [82.0-99.0 fL] 107.3 fL *HI* (12/04/15 9:25 AM) MCH [27.0-32.0 pg] 36.9 pg *HI* (12/04/15 9:25 AM) MCHC [32.0-36.0 34.4 gm/dL gm/dL] (12/04/15 9:25 AM) RDW [11.5-14.5 %] 15.0 % *HI* (12/04/15 9:25 AM) Platelet [150-400 245 10*3/uL 10*3/uL] (12/04/15 9:25 AM) MPV [8.8-14.8 fL] 9.6 fL (12/04/15 9:25 AM) Immature 0.3 % Granulocytes (12/04/15 9:25 AM) [0.0-1.0 %] Neutrophils [51-75 63 % %] (12/04/15 9:25 AM) Lymphocytes [20-46 21 % %] (12/04/15 9:25 AM) Monocytes [4-11 %] 9 % (12/04/15 9:25 AM) Eosinophils [0-4 %] 6 % *HI* (12/04/15 9:25 AM) Basophils [0-2 %] 1 % (12/04/15 9:25 AM) Neutro Absolute 2.12 10*3 [1.90-7.00 10*3] (12/04/15 9:25 AM) Lymph Absolute 0.70 10*3 [0.80-3.30 10*3] *LOW* (12/04/15 9:25 AM) [place] Absolute 0.31 10*3 [0.30-1.00 10*3] (12/04/15 9:25 AM) Eos Absolute 0.21 10*3 [0.00-0.50 10*3] (12/04/15 9:25 AM) Baso Absolute 0.03 10*3 [0.00-0.20 10*3] (12/04/15 9:25 AM) Macrocyte Present *ABN* (12/04/15 9:25 AM) Differential Scanned Slide (12/04/15:25 AM) Chemistry Most recent to 1 oldest [Reference Range]: Sodium Lvl [135-144 137 mEq/L mEq/L] (12/04/15:25 AM) Potassium Lvl 4.5 mEq/L [3.5-5.2 mEq/L] (12/04/15 9:25 AM) Chloride [99-111 103 mEq/L mEq/L] (12/04/15:25 AM) CO2 [22-31 mEq/L] 28 mEq/L (12/04/15 9:25 AM) AGAP [3-20] 6 (12/04/15 9:25 AM) BUN [10-20 mg/dL] 11 mg/dL (12/04/15 9:25 AM) Glucose Lvl [70-99 111 mg/dL mg/dL] *HI* (12/04/15 9:25 AM) Creatinine Lvl 0.86 mg/dL [0.57-1.11 mg/dL] (12/04/15 9:25 AM) eGFR [>60 mL/min] >60 mL/min 1 (12/04/15 9:25 AM) Calcium Lvl 9.6 mg/dL [8.9-10.5 mg/dL] (12/04/15 9:25 AM) Magnesium Lvl 1.8 mg/dL [1.6-2.6 mg/dL] (12/04/15 9:25 AM) 1Result Comment: Multiply eGFR results by 1.21 for race. Immunizations Vaccine Date Refusal Reason influenza virus vaccine, inactivated 01/09/15 tetanus/diphtheria/pertussis, acel(Tdap) 03/27/13 zoster vaccine live 10/02/14 Procedures Procedure Date Related Diagnosis Body Site Colonoscopy1 03/27/12 Mammogram 03/27/12 Biopsy of liver gall bladder2 H/O: hysterectomy Hx of tonsillectomy Pacemaker3 55580 2removed [id number] Social History Social History Type Response Smoking Status Never smoker Assessment and Plan Extracted from: Title: Office Visit Note Author: Harrison Viera DO Date: 12/04/15 Assessment/Plan 1.Dependent edema, Localized edema 1. The edema has completely resolved. 2. Low salt diet recommended 3. Increase activity as tolerated Ordered: Office Visit Level 4 Est 33250 Blood loss anemia 1. CBC ordered today, report is pending Ordered: CBC w/ Differential Office Visit Level 4 Est 48418 Chronic a-fib 1. Continue with sotalol as previous 2. Continue with Coumadin at 3 mg daily, recheck INR in 3 days. We will adjust her medication to maintain a goal between 2 and 3. Ordered: Basic Metabolic Panel Magnesium Level Office Visit Level 4 Est 41037 Encounter for monitoring coumadin therapy As above. Ordered: Office Visit Level 4 Est 58909
--- OUTSIDE RECORDS SUMMARY | 2016-07-23 11:15 | XMS REPORT | Referral Summary ---
Author Author [facility], Family Medicine Organization [facility] Address Unknown Phone Unavailable Care Team Providers Care Septic Cleaner Name Role Phone Harrison Viera Primary Care Physician [phone] Encounter VC Date(s): 02/25/16 - 02/25/16 [facility] [address] [place] [id number] Discharge Diagnosis: Macrocytic anemia Discharge Diagnosis: Chronic leukopenia Discharge Diagnosis: Mixed hyperlipidemia Discharge Disposition: 01-Home or Self Care Attending Physician: Harrison Viera DO Admitting Physician: Harrison Viera DO Vital Signs Most recent to 1 oldest [Reference Range]: Temperature Tympanic 35.7 degC [36.6-38.1 degC] *LOW* (02/25/16 1:20 PM) Peripheral Pulse 75 bpm Rate [60-100 bpm] (02/25/16 1:20 PM) Blood Pressure 146/71 mmHg [90-140/60-90 mmHg] *HI* (02/25/16 1:20 PM) Problem List Condition Effective Dates Status [...] # 30 caps, 1 Refill(s), Pharmacy: [facility] #[id number], 1 caps Oral Daily,PRN:as needed for gout [...] Daily, # 90 tabs, 3 Refill(s), Pharmacy: [facility], 1 tabs Oral Daily,x90 days Start Date: 02/25/16 Stop Date: 02/19/17 Status: Ordered warfarin 5 mg oral tablet 5 mg 1 tabs, Oral, Daily, # 90 tabs, 3 Refill(s), Pharmacy: [facility], 1 tabs Oral Daily,x90 days Start Date: 02/25/16 Stop Date: 02/19/17 Status: Ordered Results No data available for this section Immunizations Vaccine Date Refusal Reason influenza virus vaccine, inactivated 01/09/15 tetanus/diphtheria/pertussis, acel(Tdap) 03/27/13 zoster vaccine live 10/02/14 Procedures Procedure Date Related Diagnosis Body Site Colonoscopy1 03/27/12 Mammogram 03/27/12 Biopsy of liver gall bladder2 H/O: hysterectomy Hx of tonsillectomy Pacemaker3 30055 2removed [id number] Social History Social History Type Response Smoking Status Never smoker Assessment and Plan Extracted from: Title: Office Visit Note Author: Harrison Viera DO Date: 02/25/16 Assessment/Plan 1.Macrocytic anemia 1. She continues to be anemic despite extensive GI workup. 2. We will refer her to Dr. Jeffers for hematology evaluation and rule out myelodysplastic syndrome. Rationale for referral discussed in detail with the patient and her daughter, they both voiced understanding. Ordered: Office Visit Level 4 Est 51340 2.Chronic leukopenia 1. She continues to be leukopenic without evidence of infection or inflammatory process. 2. Referral to Dr. Jeffers as above. Ordered: Office Visit Level 4 Est 92614 3.Mixed hyperlipidemia 1. Although her lipid markers and a bit elevated compared to 6 months ago, they are still within normal range. 2. I do not think there is much benefit to using WelChol at this time. We will avoid statins because of her chronic liver disease. 3. Dietary modifications to minimize fatty food consumption recommended. 4. Recheck lipids and complete metabolic profile in one year. Ordered: Office Visit Level 4 Est 58820
--- OUTSIDE RECORDS SUMMARY | 2016-07-23 11:15 | XMS REPORT | Referral Summary ---
Author Author [facility], Family Medicine Organization [facility] Address Unknown Phone Unavailable Care Team Providers Care Health And Fitness Professor Name Role Phone Harrison Viera Primary Care Physician [phone] Encounter VC Date(s): 01/09/15 - 01/09/15 [facility] [address] [place] [address] Discharge Diagnosis: Combined hyperlipidemia Discharge Diagnosis: Benign hypertension Discharge Diagnosis: Elevated liver enzymes Discharge Disposition: 01-Home or Self Care Attending Physician: Harrison Viera DO Admitting Physician: Harrison Viera DO Vital Signs Most recent to 1 oldest [Reference Range]: Temperature Tympanic 35.5 degC [36.6-38.1 degC] *LOW* (01/09/15 1:13 PM) Peripheral Pulse 68 bpm Rate [60-100 bpm] (01/09/15 1:13 PM) Blood Pressure 140/68 mmHg [90-140/60-90 mmHg] (01/09/15 1:13 PM) Problem List No data available for [...] change, # 100 tabs, 1 Refill(s), Pharmacy: [facility], pt dosage varies depending on pt INR. Pt currently taking 3mg and... Start Date: 03/19/15 Status: Ordered warfarin 3 mg oral tablet See Instructions, pt takes 3mg and 4 mg. Please supply pt with 2mg tabs, # 120 tabs, 1 Refill(s), Pharmacy: [facility], pt takes 3mg and 4 mg. Please supply pt with 2mg tabs Start Date: 03/18/15 Status: Ordered warfarin 3 mg oral tablet See Instructions, pt takes 3mg, # 120 tabs, 1 Refill(s), Pharmacy: [facility], pt takes 3mg Start Date: 05/18/15 Status: Ordered Zetia 10 mg oral tablet 10 mg 1 tabs, Oral, Daily, Hold med till pt requests, # 30 tabs, 0 Refill(s), Pharmacy: [facility] #[id number], 1 tabs Oral Daily,Instr:Hold med till pt requests Start Date: 10/03/14 Status: Ordered Results No data available for this section Immunizations Vaccine Date Refusal Reason influenza virus vaccine, inactivated 01/09/15 tetanus/diphtheria/pertussis, acel(Tdap) 03/27/13 zoster vaccine live 10/02/14 Procedures Procedure Date Related Diagnosis Body Site Colonoscopy1 03/27/12 Mammogram 03/27/12 Biopsy of liver gall bladder2 H/O: hysterectomy Hx of tonsillectomy Pacemaker3 95184 2removed [id number] Social History Social History Type Response Smoking Status Never smoker Assessment and Plan Extracted from: Title: Office Visit Note Author: Harrison Viera DO Date: 01/09/15 Assessment/Plan Benign hypertension 1. Blood pressures well controlled at this time. No changes in medication at this time. 2. Follow-up in 3 months for blood pressure management. Ordered: atorvastatin, 40 mg 1 tabs, Oral, Daily, # 30 tabs, 0 Refill(s), Pharmacy: [facility] #[id number], 1 tabs Oral Daily,x30 days Office Visit Level 4 Est 96292 Combined hyperlipidemia 1. Agree with pharmacist to discontinue WelChol and Zetia. 2. Was started on atorvastatin 40 mg daily today, will have her follow-up in one month for reevaluation and repeat lipid panel. 3. If she tolerates the atorvastatin without an elevation in liver enzymes then we plan on continuing her on this medication long-term. Ordered: atorvastatin, 40 mg 1 tabs, Oral, Daily, # 30 tabs, 0 Refill(s), Pharmacy: [facility] #[id number], 1 tabs Oral Daily,x30 days Office Visit Level 4 Est 26232 Elevated liver enzymes Repeat liver enzymes in one month. Ordered: atorvastatin, 40 mg 1 tabs, Oral, Daily, # 30 tabs, 0 Refill(s), Pharmacy: [facility] #[id number], 1 tabs Oral Daily,x30 days Office Visit Level 4 Est 33337
--- OUTSIDE RECORDS SUMMARY | 2016-07-23 11:15 | XMS REPORT | Referral Summary ---
Author Author [facility] Family Medicine Organization [facility] Address Unknown Phone Unavailable Care Team Providers Care Filament Coil Winder Name Role Phone Harrison Viera Primary Care Physician [phone] Encounter VC Date(s): 10/29/15 - 10/29/15 [facility] [address] [place] [address] Discharge Diagnosis: Normocytic anemia Discharge Disposition: 01-Home or Self Care Attending Physician: Harrison Viera DO Admitting Physician: Harrison Viera DO Referring Physician: Harrison Viera DO Vital Signs Most recent to 1 oldest [Reference Range]: Peripheral Pulse 72 bpm Rate [60-100 bpm] (10/29/15 1:46 PM) Blood Pressure 130/76 mmHg [90-140/60-90 mmHg] (10/29/15 1:46 PM) Problem List No data available for [...] pain, # 30 caps, 1 Refill(s), Pharmacy: [facility] #[id number], 1 caps Oral Daily,PRN:as needed for gout [...] change, # 100 tabs, 1 Refill(s), Pharmacy: [facility], pt dosage varies depending on pt INR. Pt currently taking 3mg and... Start Date: 03/19/15 Status: Ordered warfarin 3 mg oral tablet See Instructions, pt takes 3mg and 4 mg. Please supply pt with 2mg tabs, # 120 tabs, 1 Refill(s), Pharmacy: [facility], pt takes 3mg and 4 mg. Please supply pt with 2mg tabs Start Date: 03/18/15 Status: Ordered warfarin 3 mg oral tablet See Instructions, pt takes 3mg, # 120 tabs, 1 Refill(s), Pharmacy: [facility], pt takes 3mg Start Date: 05/18/15 Status: Ordered warfarin 4 mg oral tablet mg tabs, Oral, Daily, 0 Refill(s) Start Date: 08/26/15 Status: Ordered warfarin 5 mg oral tablet 5 mg 1 tabs, Oral, Daily, dose depends on pt INR, please dispense 90 tabs., # 90 tabs, 1 Refill(s), Pharmacy: [facility], 1 tabs Oral Daily,Instr: dose [...] bladder2 H/O: hysterectomy Hx of tonsillectomy Pacemaker3 28069 2removed [id number] Social History Social History Type Response Smoking Status Never smoker Assessment and Plan Extracted from: Title: Office Visit Note Author: Harrison Viera DO Date: 10/29/15 Assessment/Plan 1.Normocytic anemia 1. Continue with recommendations as per foam tank laminator. 2. Agree with surgical consult. 3. For her gout, she may use indomethacin sporadically. If she is having to use it more frequently than we will need to monitor her renal function closely. Ordered: Office Visit Level 3 Est 19935 Orders: indomethacin, 25 mg 1 caps, Oral, Daily, as needed for gout pain, # 30 caps, 1 Refill(s), Pharmacy: [facility] #[id number], 1 caps Oral Daily,PRN: as needed for gout pain
--- OUTSIDE RECORDS SUMMARY | 2016-07-23 11:15 | XMS REPORT | Referral Summary ---
Author Author [facility], Family Medicine Organization [facility] Address Unknown Phone Unavailable Care Team Providers Care Deer Farmer Name Role Phone Harrison Viera Primary Care Physician [phone] Encounter VC Date(s): 01/09/15 - 01/09/15 [facility] [address] [place] [id number] Discharge Diagnosis: Combined hyperlipidemia Discharge Diagnosis: Benign [...] Daily, # 30 tabs, 0 Refill(s), Pharmacy: [facility] # [id number], 1 tabs Oral Daily,x30 days Start Date: 01/09/15 Stop Date: 02/08/15 Status: Ordered azaTHIOprine 50 mg oral tablet [...] requests, # 30 tabs, 0 Refill(s), Pharmacy: [facility] #[id number], 1 tabs Oral Daily,Instr:Hold med till pt requests Start Date: 10/03/14 Status: Ordered Results No data available for this section Immunizations Vaccine Date Refusal Reason influenza virus vaccine, inactivated 01/09/15 tetanus/diphtheria/pertussis, acel(Tdap) 03/27/13 zoster vaccine live 10/02/14 Procedures Procedure Date Related Diagnosis Body Site Colonoscopy1 03/27/12 Mammogram 03/27/12 Biopsy of liver gall bladder2 H/O: hysterectomy Hx of tonsillectomy Pacemaker3 58732 2removed [id number] Social History Social History Type Response Smoking [...] Daily, # 30 tabs, 0 Refill(s), Pharmacy: [facility] #[id number], 1 tabs Oral Daily,x30 days Office Visit Level 4 Est 14229 Combined hyperlipidemia 1. Agree with pharmacist to [...] Daily, # 30 tabs, 0 Refill(s), Pharmacy: [facility] #[id number], 1 tabs Oral Daily,x30 days Office Visit Level 4 Est 89910 Elevated liver enzymes Repeat liver enzymes in one month. Ordered: atorvastatin, 40 mg 1 tabs, Oral, Daily, # 30 tabs, 0 Refill(s), Pharmacy: [facility] #[id number], 1 tabs Oral Daily,x30 days Office Visit Level 4 Est 62570
--- OUTSIDE RECORDS SUMMARY | 2016-07-23 11:15 | XMS REPORT | Referral Summary ---
Author Author [facility], Family Medicine Organization [facility] Address Unknown Phone Unavailable Care Team Providers Care Boat Carpenter Name Role Phone Harrison Viera Primary Care Physician [phone] Encounter VC Date(s): 11/23/15 - 11/23/15 [facility], [address] [place] [address] Discharge Diagnosis: Post-operative state Discharge Disposition: -Home or Self Care Attending Physician: Harrison Viera DO Admitting Physician: Harrison Viera DO Vital Signs Most recent to 1 oldest [Reference Range]: Temperature Tympanic 35.7 degC [36.6-38.1 degC] *LOW* (11/23/15 10:23 AM) Peripheral Pulse 68 bpm Rate [60-100 bpm] (11/23/15 10:23 AM) Blood Pressure 135/60 mmHg [90-140/60-90 mmHg] (11/23/15 10:23 AM) Problem List No data available for [...] pain, # 30 caps, 1 Refill(s), Pharmacy: [facility] #[id number], 1 caps Oral Daily,PRN:as needed for gout [...] change, # 100 tabs, 1 Refill(s), [facility]: [facility], pt dosage varies depending on pt INR. Pt currently taking 3mg and... Start Date: 03/19/15 Status: Ordered warfarin 3 mg oral tablet See Instructions, pt takes 3mg and 4 mg. Please supply pt with 2mg tabs, # 120 tabs, 1 Refill(s), Pharmacy: [facility], pt takes 3mg and 4 mg. Please supply pt with 2mg tabs Start Date: 03/18/15 Status: Ordered warfarin 3 mg oral tablet See Instructions, pt takes 3mg, # 120 tabs, 1 Refill(s), [facility], pt takes 3mg Start Date: 05/18/15 Status: Ordered warfarin 4 mg oral tablet mg tabs, Oral, Daily, 0 Refill(s) Start Date: 08/26/15 Status: Ordered warfarin 5 mg oral tablet 5 mg 1 tabs, Oral, Daily, dose depends on pt INR, please dispense 90 tabs., # 90 tabs, 1 Refill(s), Pharmacy: [facility], 1 tabs Oral Daily,Instr: dose [...] bladder2 H/O: hysterectomy Hx of tonsillectomy Pacemaker3 04514 2removed [id number] Social History Social History Type Response Smoking Status Never smoker Assessment and Plan Extracted from: Title: Post hospital TCM Author: Harrison Viera DO Date: 11/23/15 Assessment/Plan 1.Post-operative state 1. Patient appears to be recovering well. 2. Continue with current pain management. 3. Continue advancing diet as tolerated. 4. Her concerns for recurrent A. fib is unfoundon today's auscultation. Recommended following up with real estate administrative assistant for farther evaluation on recommendations. 5. Continue with current Coumadin therapy since she is therapeutic. 6. Follow-up in 2 weeks for reevaluation. Ordered: [facility] 7 Day Disch 39232
--- OUTSIDE RECORDS SUMMARY | 2016-07-23 11:15 | XMS REPORT | Referral Summary ---
Author Author [facility], Family Medicine Organization [facility] Address Unknown Phone Unavailable Care Team Providers Care Credit Reporter Name Role Phone Harrison Viera Primary Care Physician [phone] Encounter VC Date(s): 09/21/15 - 09/21/15 [facility] [address] [place] [address] Discharge Diagnosis: Microcytic anemia Discharge Diagnosis: Transient acute renal failure Discharge Disposition: 01-Home or Self Care Attending Physician: Harrison Viera DO Admitting Physician: Harrison Viera DO Vital Signs Most recent to 1 oldest [Reference Range]: Temperature Tympanic 36.3 degC [36.6-38.1 degC] *LOW* (09/21/15 2:23 PM) Peripheral Pulse 82 bpm Rate [60-100 bpm] (09/21/15 2:23 PM) Blood Pressure 108/64 mmHg [90-140/60-90 mmHg] (09/21/15 2:23 PM) SpO2 98 % (09/21/15 2:23 PM) Problem List No data available for [...] change, # 100 tabs, 1 Refill(s), Pharmacy: [facility], pt dosage varies depending on pt INR. Pt currently taking 3mg and... Start Date: 03/19/15 Status: Ordered warfarin 3 mg oral tablet See Instructions, pt takes 3mg and 4 mg. Please supply pt with 2mg tabs, # 120 tabs, 1 Refill(s), [facility]: [facility], pt takes 3mg and 4 mg. Please supply pt with 2mg tabs Start Date: 03/18/15 Status: Ordered warfarin 3 mg oral tablet See Instructions, pt takes 3mg, # 120 tabs, 1 Refill(s), Pharmacy: [facility], pt takes 3mg Start Date: 05/18/15 Status: Ordered warfarin 4 mg oral tablet mg tabs, Oral, Daily, 0 Refill(s) Start Date: 08/26/15 Status: Ordered warfarin 5 mg oral tablet 5 mg 1 tabs, Oral, Daily, dose depends on pt INR, please dispense 90 tabs., # 90 tabs, 1 Refill(s), Pharmacy: [facility], 1 tabs Oral Daily,Instr: dose [...] bladder2 H/O: hysterectomy Hx of tonsillectomy Pacemaker3 45729 2removed [id number] Social History Social History Type Response Smoking Status Never smoker Assessment and Plan Extracted from: Title: Office Visit Note Author: Harrison Viera DO Date: 09/21/15 Assessment/Plan 1.Microcytic anemia 1. I suspect her anemia is secondary to the azathioprine. 2. Recommended she discuss this with GI specialist since they are prescribing this medication. 3. Repeat CBC in 3 months. Ordered: Office Visit Level 3 Est 54938 2.Transient acute renal failure 1. Her repeat renal function was normal. 2. Avoid daily use of NSAIDs. 3. Repeat renal function in 6 months. Ordered: Office Visit Level 3 Est 93707
--- OUTSIDE RECORDS SUMMARY | 2016-07-23 11:15 | XMS REPORT | Referral Summary ---
Author Author [facility] Organization [facility] Address Unknown Phone Unavailable Care Team Providers Care Associate Account Manager Name Role Phone Harrison Viera Primary Care Physician [phone] Encounter VC Date(s): 10/28/14 - 10/28/14 [facility] [address] [place] [address] Discharge Disposition: 01-Home or Self Care Attending Physician: Shashi Sinha MD Admitting Physician: Shashi Sinha MD Vital Signs Most recent to 1 oldest [Reference Range]: Temperature Tympanic 36.2 degC [36.6-38.1 degC] *LOW* (10/28/14 10:41 AM) Peripheral Pulse 90 bpm Rate [60-100 bpm] (10/28/14 10:41 AM) Blood Pressure 124/72 mmHg [90-140/60-90 mmHg] (10/28/14 10:41 AM) Problem List No data available for this section Allergies, Adverse Reactions, Alerts Substance Reaction Severity Status iodine Nausea/Vomiting Active Medications amLODIPine 10 mg oral tablet tabs, Oral, Daily, 0 Refill(s) Start Date: 07/25/14 Status: Ordered atorvastatin 40 mg oral tablet 40 mg 1 tabs, Oral, Daily, # 90 tabs, 1 Refill(s), Pharmacy: [facility], 1 tabs Oral Daily,x90 days [...] change, # 100 tabs, 1 Refill(s), Pharmacy: [facility], pt dosage varies depending on pt INR. Pt currently taking 3mg and... Start Date: 03/19/15 Status: Ordered warfarin 3 mg oral tablet See Instructions, pt takes 3mg and 4 mg. Please supply pt with 2mg tabs, # 120 tabs, 1 Refill(s), Pharmacy: [facility], pt takes 3mg and 4 mg. Please supply pt with 2mg tabs Start Date: 03/18/15 Status: Ordered Zetia 10 mg oral tablet 10 mg 1 tabs, Oral, Daily, Hold med till pt requests, # 30 tabs, 0 Refill(s), Pharmacy: [facility] #[id number], 1 tabs Oral Daily,Instr:Hold med till pt requests Start Date: 10/03/14 Status: Ordered Results No data available for this section Immunizations Vaccine Date Refusal Reason influenza virus vaccine, inactivated 01/09/15 tetanus/diphtheria/pertussis, acel(Tdap) 03/27/13 zoster vaccine live 10/02/14 Procedures Procedure Date Related Diagnosis Body Site Colonoscopy1 03/27/12 Mammogram 03/27/12 Biopsy of liver gall bladder2 H/O: hysterectomy Hx of tonsillectomy Pacemaker3 40290 2removed [id number] Social History Social History Type Response Smoking Status Never smoker Assessment and Plan Extracted from: Title: Office Visit Note Author: Shashi Sinha MD Date: 10/28/14 Assessment/Plan Acute bronchitis Plan: I minute place you on Zithromax. Continue all your other medications. Follow-up with Dr. Viera next week. Orders: azithromycin, 1 packets, Oral, Daily, as directed on package labeling , X 5 days, # 6 tabs, 0 Refill(s), Pharmacy: [facility] #[id number], 1 packets Oral Daily,x5 days,Instr:as directed on package labeling
--- OUTSIDE RECORDS SUMMARY | 2016-07-23 11:15 | XMS REPORT | Continuity of Care Document ---
Author Author [facility] Organization [facility] Address Unknown Phone Unavailable Allergies Active Description Code Type Severity Reaction Onset Reported/Identified Relationship to Patient Clinical Status Yes No Known Allergies No Known Allergies Drug Allergy Unknown N/A 03/17/2012 Yes Iodinated Contrast Media - IV Dye Iodinated Contrast Media - IV Dye Drug Allergy Moderate RASH 10/08/2015 Yes Iodinated Contrast Media - IV Dye Iodinated Contrast Media - IV Dye Drug Allergy Mild FEET ITCH, CAN TAKE WITH BENADRYL 11/17/2015 Yes Iodinated Contrast Media - Oral and Iodinated Contrast Media - Oral and Drug Allergy Mild FEET ITCH, CAN TAKE WITH BENADRYL 11/17/2015 Medications Problems Date Dx Coded Attending Type Code Diagnosis Diagnosed By 10/26/2015 Carlos Monahan MD K56.69 OTHER INTESTINAL OBSTRUCTION 10/26/2015 Carlos Monahan MD K56.69 OTHER INTESTINAL OBSTRUCTION 11/17/2015 Rashid Renee MD D64.9 ANEMIA, UNSPECIFIED 11/17/2015 Rashid Renee MD E78.5 HYPERLIPIDEMIA, UNSPECIFIED 11/17/2015 Rashid Renee MD F32.9 MAJOR DEPRESSIVE DISORDER, SINGLE EPISODE , UNSPECI 11/17/2015 Rashid Renee MD I10 ESSENTIAL (PRIMARY) HYPERTENSION 11/17/2015 Rashid Renee MD I38 ENDOCARDITIS, VALVE UNSPECIFIED 11/17/2015 Rashid Renee MD K21.9 GASTRO-ESOPHAGEAL REFLUX DISEASE WITHOUT ESOPHAGIT 11/17/2015 Rashid Renee MD K56.5 INTESTINAL ADHESIONS W OBST ( POSTPROCEDURAL) (POST 11/17/2015 Rashid Renee MD K63.9 DISEASE OF INTESTINE, UNSPECIFIED 11/17/2015 Rashid Renee MD K74.60 UNSPECIFIED CIRRHOSIS OF LIVER 11/17/2015 Rashid Renee MD M19.90 UNSPECIFIED OSTEOARTHRITIS, UNSPECIFIED SITE 11/17/2015 Rashid Renee MD Z79.01 [facility] (CURRENT) USE OF ANTICOAGULANTS 11/17/2015 Rashid Renee MD Z86.73 PRSNL HX OF TIA (TIA), AND CEREB INFRC W /O RESID D 11/17/2015 Rashid Renee MD Z90.49 ACQUIRED ABSENCE OF OTHER SPECIFIED PARTS OF DIGES 11/17/2015 Rashid Renee MD Z90.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 11/17/2015 Rashid Renee MD Z95.0 PRESENCE OF CARDIAC PACEMAKER Procedures Code Description Performed By Performed On 45.13 OTHER ENDOSCOPY OF SM BENNETT Monahan MD, Carlos Bourne 03/21/2012 45.42 ENDOSC POLYPECTOMY OF LG BENNETT Monahan MD, Carlos Bourne 03/21/2012 [id number] EXCISION OF SIGMOID COLON, OPEN APPROACH Rashid Renee MD 11/17/2015 [id number] INSPECTION OF LOWER INTESTINAL TRACT, PERC ENDO AP Rashid Renee MD 11/17/2015 [id number] INSPECTION OF LOWER INTESTINAL TRACT, ENDO 11/17/2015 [id number] RELEASE GREATER OMENTUM, OPEN APPROACH Rashid Renee MD 11/17/2015 [id number] RELEASE PERITONEUM, OPEN APPROACH Rashid Renee MD 11/17/2015 Encounters ACCT No. Visit Date/Time Discharge Status Pt. Type Provider Facility Loc./Unit Complaint [id number] 11/17/2015 10:16:00 2015 16:18:00 DIS Inpatient Thelma MARC [facility] W.8TS [id number] 11/13/2015 09:15:00 2015 09:15:00 DIS Outpatient Thelma MARC [facility] W.POA [id number] 10/26/2015 09:13:00 2015 09:13:00 DIS Outpatient Hero MARC [facility] W.RAC [id number] 10/08/2015 14:01:00 2015 17:40:00 DIS Outpatient Hero MARC [facility] W.END [id number] 03/21/2012 07:48:00 2011 11:32:00 DIS Outpatient Hero MARC, [facility] W.END
--- OUTSIDE RECORDS SUMMARY | 2016-07-23 11:16 | XMS REPORT | Referral Summary ---
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 Pt currently taking 3mg and... Start Date: 03/19/15 Status: Ordered warfarin 3 mg oral tablet See Instructions, pt takes 3mg and 4 mg. Please supply pt with 2mg tabs, # 120 tabs, 1 Refill(s), Pharmacy: [facility], pt takes 3mg and 4 mg. Please supply pt with 2mg tabs Start Date: 03/18/15 Status: Ordered warfarin 3 mg oral tablet See Instructions, pt takes 3mg, # 120 tabs, 1 Refill(s), Pharmacy: [facility], pt takes 3mg Start Date: 05/18/15 Status: Ordered warfarin 4 mg oral tablet mg tabs, Oral, Daily, 0 Refill(s) Start Date: 08/26/15 Status: Ordered warfarin 5 mg oral tablet 5 mg 1 tabs, Oral, Daily, dose depends on pt INR, please dispense 90 tabs., # 90 tabs, 1 Refill(s), Pharmacy: [facility], 1 tabs Oral Daily,Instr: dose [...] Procedures Procedure Date Related Diagnosis Body Site Excision, malignant lesion including margins, 08/26/15 face, ears, eyelids, nose, lips; excised diameter 1.1 to 2.0 cm Colonoscopy1 03/27/12 Mammogram 03/27/12 Biopsy of liver gall bladder2 H/O: hysterectomy Hx of tonsillectomy Pacemaker3 76886 2removed [id number] Social History Social History Type Response Smoking Status Never smoker Assessment and Plan Extracted from: Title: Office Visit Note Author: Harrison Viera DO Date: 08/26/15 Assessment/Plan 1.Squamous cell carcinoma in situ of skin, Carcinoma in situ of skin of other parts of face 1. Pathology report reviewed with the patient. Recommended wide excision for positive margins. Patient was agreeable. Procedure: Reexcision of squamous cell carcinoma in situ Location: Left mid jawline Indication: Positive margins for malignancy Medication: One percent lidocaine with epinephrine, 1.5 mL Pathology sample: Elliptical excision of 1 cm x 1.5 cm tagged at 12:00 position. Description: Following verbal informed consent, the patient was laid in the right lateral recumbent position. Area for excision was cleansed with Betadine to create a sterile field. Using one percent lidocaine with epinephrine, local anesthesia was achieved. This was followed by elliptical excision, using a 15 blade scalpel, of 1 cm x 1.5 cm in diameter. Tissue was tagged at 12:00 position. The margins were undermined and approximated using 6-0 Prolene in a running suture manner. Patient tolerated procedure well. The wound was cleansed and dry dressing was applied. Wound care instructions provided. Follow-up in a week for suture removal, sooner if any new concerns. Ordered: Exc Mal Les Face Ears Nose Lips 1.1-2.0cm 87500 Hx of squamous cell carcinoma excision As above. Ordered: Exc Mal Les Face Ears Nose Lips 1.1-2.0cm 79164
--- OUTSIDE RECORDS SUMMARY | 2016-07-23 11:16 | XMS REPORT | Referral Summary ---
Author Author [facility] Organization [facility] Address Unknown Phone Unavailable Care Team Providers Care Tube And Rod Straightener Name Role Phone Harrison Viera Primary Care Physician [phone] Encounter VC Date(s): 08/12/15 - 08/12/15 [facility] [address] [place] [address] Discharge Disposition: 01-Home or Self Care Attending Physician: Harrison Viera DO Admitting Physician: Harrison Viera DO Vital Signs Most recent to 1 oldest [Reference Range]: Temperature Tympanic 35.7 degC [36.6-38.1 degC] *LOW* (08/12/15 8:46 AM) Peripheral Pulse 88 bpm Rate [60-100 bpm] (08/12/15 8:46 AM) Blood Pressure 133/53 mmHg [90-140/60-90 mmHg] (08/12/15 8:46 AM) Problem List No data available for [...] change, # 100 tabs, 1 Refill(s), Pharmacy: [facility], pt dosage varies depending on pt INR. Pt currently taking 3mg and... Start Date: 03/19/15 Status: Ordered warfarin 3 mg oral tablet See Instructions, pt takes 3mg and 4 mg. Please supply pt with 2mg tabs, # 120 tabs, 1 Refill(s), Pharmacy: [facility], pt takes 3mg and 4 mg. Please supply pt with 2mg tabs Start Date: 03/18/15 Status: Ordered warfarin 3 mg oral tablet See Instructions, pt takes 3mg, # 120 tabs, 1 Refill(s), Pharmacy: [facility], pt takes 3mg Start Date: 05/18/15 Status: Ordered warfarin 5 mg oral tablet 5 mg 1 tabs, Oral, Daily, dose depends on pt INR, please dispense 90 tabs., # 90 tabs, 1 Refill(s), Pharmacy: [facility], 1 tabs Oral Daily,Instr: dose depends on pt INR, please dispense 90 tabs. Start Date: 07/23/15 Status: Ordered Results Hematology Most recent to 1 oldest [Reference Range]: WBC [4.8-10.8 3.5 10*3/uL 10*3/uL] *LOW* (08/12/15 9:20 AM) RBC [4.00-5.20] 3.11 *LOW* (08/12/15 9:20 AM) Hgb [12.0-16.0 11.4 gm/dL gm/dL] *LOW* (08/12/15 9:20 AM) Hct [37.0-47.0 %] 32.9 % *LOW* (08/12/15 9:20 AM) MCV [82.0-99.0 fL] 105.8 fL *HI* (08/12/15 9:20 AM) MCH [27.0-32.0 pg] 36.7 pg *HI* (08/12/15 9:20 AM) MCHC [32.0-36.0 34.7 gm/dL gm/dL] (08/12/15 9:20 AM) RDW [11.5-14.5 %] 14.7 % *HI* (08/12/15 9:20 AM) Platelet [150-400 142 10*3/uL 10*3/uL] *LOW* (08/12/15 9:20 AM) MPV [8.8-14.8 fL] 9.5 fL (08/12/15 9:20 AM) Immature 0.3 % Granulocytes (08/12/15 9:20 AM) [0.0-1.0 %] Neutrophils [51-75 66 % %] (08/12/15 9:20 AM) Lymphocytes [20-46 19 % %] *LOW* (08/12/15 9:20 AM) Monocytes [4-11 %] 8 % (08/12/15 9:20 AM) Eosinophils [0-4 %] 5 % *HI* (08/12/15 9:20 AM) Basophils [0-2 %] 1 % (08/12/15 9:20 AM) Neutro Absolute 2.33 10*3 [1.90-7.00 10*3] (08/12/15 9:20 AM) Lymph Absolute 0.68 10*3 [0.80-3.30 10*3] *LOW* (08/12/15 9:20 AM) [place] Absolute 0.29 10*3 [0.30-1.00 10*3] *LOW* (08/12/15 9:20 AM) Eos Absolute 0.19 10*3 [0.00-0.50 10*3] (08/12/15 9:20 AM) Baso Absolute 0.03 10*3 [0.00-0.20 10*3] (08/12/15 9:20 AM) Macrocyte Present *ABN* (08/12/15 9:20 AM) Differential Scanned Slide (08/12/15 9:20 AM) Chemistry Most recent to 1 oldest [Reference Range]: Sodium Lvl [135-144 137 mEq/L mEq/L] (08/12/15 9:20 AM) Potassium Lvl 4.0 mEq/L [3.5-5.2 mEq/L] (08/12/15 9:20 AM) Chloride [99-111 103 mEq/L mEq/L] (08/12/15 9:20 AM) CO2 [22-31 mEq/L] 25 mEq/L (08/12/15 9:20 AM) AGAP [3-20] 9 (08/12/15 9:20 AM) BUN [10-20 mg/dL] 26 mg/dL *HI* (08/12/15 9:20 AM) Glucose Lvl [70-99 129 mg/dL mg/dL] *HI* (08/12/15 9:20 AM) Creatinine Lvl 1.01 mg/dL [0.57-1.11 mg/dL] (08/12/15 9:20 AM) eGFR [>60 mL/min] 53 mL/min 1 *ABN* (08/12/15 9:20 AM) Calcium Lvl 9.7 mg/dL [8.9-10.5 mg/dL] (08/12/15 9:20 AM) Albumin Lvl [3.4-4.8 3.9 gm/dL gm/dL] (08/12/15 9:20 AM) Total Protein 7.4 gm/dL [6.2-8.1 gm/dL] (08/12/15 9:20 AM) Globulin [1.8-4.0 3.5 gm/dL gm/dL] (08/12/15 9:20 AM) ALT [0-55 U/L] 24 U/L (08/12/15 9:20 AM) AST [5-34 U/L] 42 U/L *HI* (08/12/15 9:20 AM) Alk Phos [40-150 79 U/L U/L] (08/12/15 9:20 AM) Bili Total [0.2-1.2 1.0 mg/dL mg/dL] (08/12/15 9:20 AM) Vitamin B12 Lvl 1242 pg/mL [213-816 pg/mL] *HI* (08/12/15 12:01 AM) Folate Lvl [7.0-31.4 >20.0 ng/mL ng/mL] (08/12/15 12:01 AM) 1Result Comment: Multiply eGFR results by 1.21 for race. Immunizations Vaccine Date Refusal Reason influenza virus vaccine, inactivated 01/09/15 tetanus/diphtheria/pertussis, acel(Tdap) 03/27/13 zoster vaccine live 10/02/14 Procedures Procedure Date Related Diagnosis Body Site Shaving of epidermal or dermal lesion, single 08/12/15 lesion, face, ears, eyelids, nose, lips, mucous membrane; lesion diameter 0.6 to 1.0 cm Colonoscopy1 03/27/12 Mammogram 03/27/12 Biopsy of liver gall bladder2 H/O: hysterectomy Hx of tonsillectomy Pacemaker3 16486 2removed 23852 Social History Social History Type Response Smoking Status Never smoker Assessment and Plan Extracted from: Title: Office Visit Note Author: Harrison Viera DO Date: 08/12/15 Assessment/Plan Elevated liver enzymes 1. Liver enzymes ordered today in addition to CBC. Report is pending. We will forward a copy to her chief lock tender operator. 2. We will try to avoid hepatotoxic medications. Ordered: Office Visit Level 4 Est 15890 Mixed hyperlipidemia 1. Fasting lipids ordered, report is pending. 2. Continue with diet modifications. Ordered: Office Visit Level 4 Est 27050 Osteoarthritis 1. We'll check her renal function. If her creatinine and GFR is normal then I think it's reasonable to take the diclofenac on a daily basis and follow her renal function every 3 months. Seborrheic keratosis, inflamed Given that the lesion on her cheek has become bothersome and seems to be growing I recommended shave biopsy to which she agreed. Procedure: Shave biopsy of left cheek Indication: Worsening skin lesion in size and tenderness Medication: One percent lidocaine with epinephrine, 2 mL Preoperative diagnosis: Inflamed seborrheic keratosis Postoperative diagnosis: Pathology report pending Description: Following informed consent, the patient was laid in the supine position with the head rotated towards the right. Lesion was cleansed with Betadine to create a sterile field. Using sterile technique, local anesthesia was achieved using one percent lidocaine with epinephrine. Once anesthesia was achieved, using a dermal blade the lesion was shaved at its base. Diameter of the lesion was 1 cm. Hemostasis was assured using heat cautery. Dry dressing was applied and wound care instructions provided. Ordered: Office Visit Level 4 Est 66168 [facility] skin lesion 1 f/e/e/n/l/m diam 0.6-1.0 cm 99425
--- OUTSIDE RECORDS SUMMARY | 2016-07-23 11:20 | XMS REPORT | Continuity of Care Document ---
Author Author [facility] Organization [facility] Address Unknown Phone Unavailable Care Team Providers Care Welding Machine Operator Friction Name Role Phone Amos Napier Primary Care Physician [phone] Source Comments Some departments are not documenting in the electronic medical record. If you do not see the information that you expected, contact Release of Information in the Health Information Management department at [phone] for further assistance in locating additional records.[facility] Active Allergies and Adverse Reactions Not on [...]
--- OUTSIDE RECORDS SUMMARY | 2016-07-23 11:20 | XMS REPORT | Continuity of Care Document ---
Author Author [facility] Organization [facility] Address Unknown Phone Unavailable Support Name Relationship Address Phone REBEKAH WRAY MD Caregiver [address] [place] [address] [place] [phone] WILLIAM MARRERO DO Caregiver [facility] [address] [place] [address] MERVAT SKAGGS MD Caregiver [address] [place] [address] [place] [phone] ASIF MYRICK Next Of Kin [address] [place], [place] [address] Insurance Providers Payer Name Policy Number Subscriber Name Relationship Medicare [id number] Kaylee Easton 18 Self [employer] Other [id number] Kaylee Easton 18 Self Advance Directives Directive [...] F (96.8 - 99.1) Temperature (Calculated Celsius) 36.31484 degrees C (36.0 - 37.3) Pulse Rate [...] 2 0-7 Name: KAYLEE EASTON Unit #: [id number] : 1940 Sex: F Loc / Svc: ED DOS: 12/26/13 Signed Report #: [id number] DIAGNOSTIC IMAGING REPORT TYPE OF EXAM: CHEST [...] Encounters Encounter Location Date/Time Departed Emergency Room [facility] 12/26/13 10:48am Recent Diagnosis
--- OUTSIDE RECORDS SUMMARY | 2016-07-23 11:21 | XMS REPORT | Continuity of Care Document ---
Author Author [facility] Organization [facility] Address Unknown Phone Unavailable Allergies Active Description [...] UNSPECIFIED SITE 11/17/2015 Rashid Renee MD Z79.01 [facility] (CURRENT) USE OF ANTICOAGULANTS 11/17/2015 Rashid Renee [...] LG BENNETT Monahan MD, Carlos Bourne 03/21/2012 [id number] EXCISION OF SIGMOID COLON, OPEN APPROACH Rashid Renee MD 11/17/2015 [id number] INSPECTION OF LOWER INTESTINAL TRACT, PERC ENDO AP Rashid Renee MD 11/17/2015 [id number] INSPECTION OF LOWER INTESTINAL TRACT, ENDO 11/17/2015 [id number] RELEASE GREATER OMENTUM, OPEN APPROACH Rashid Renee MD 11/17/2015 [id number] RELEASE PERITONEUM, OPEN APPROACH Rashid Renee MD 11/17/2015 Encounters ACCT No. Visit Date/Time Discharge Status Pt. Type Provider Facility Loc./Unit Complaint [id number] 11/17/2015 10:16:00 2015 16:18:00 DIS Inpatient Thelma MARC [facility] W.8TS [id number] 11/13/2015 09:15:00 2015 09:15:00 DIS Outpatient Thelma MARC [facility] W.POA [id number] 10/26/2015 09:13:00 2015 09:13:00 DIS Outpatient Hero MARC [facility] W.RAC [id number] 10/08/2015 14:01:00 2015 17:40:00 DIS Outpatient Hero MARC [facility] W.END [id number] 03/21/2012 07:48:00 2011 11:32:00 DIS Outpatient Hero MARC, [facility] W.END
[2016-07-23] MEDS ORDERED: ASPIRIN 81 MG CHEWABLE TABLET PO ONE (11:30)
[2016-07-23 11:34] LABS: BASOPHILS % (AUTO) 0.7 % (0-2); EOSINOPHILS # (AUTO) 0.1 T/MM3 (0-0.5); EOSINOPHILS % (AUTO) 3.7 % (0-4); HCT - HEMATOCRIT 29.5 % (36-46); HGB - HEMOGLOBIN 10.2 GM/DL (12-16); IMMATURE GRANULOCYTE # (AUTO) 0.01 T/MM3 (0.00-0.03); IMMATURE GRANULOCYTE % (AUTO) 0.4 % (0.0-0.5); LYMPHOCYTES # (AUTO) 0.6 T/MM3 (1-4.8); LYMPHOCYTES % (AUTO) 22.8 % (23-45); MEAN CORPUSCULAR HGB 37.1 UUG (26-34); MEAN CORPUSCULAR HGB CONC(MCHC 34.6 GM/DL (31-37); MEAN CORPUSCULAR VOLUME 107.3 UM3 (80-100); MEAN PLATELET VOLUME 9.5 UM3 (9.4-12.4); MONOCYTES # (AUTO) 0.2 T/MM3 (0-0.8); MONOCYTES % (AUTO) 5.6 % (0-9.0); NEUTROPHILS #(AUTO)-ABSOLUTE 1.8 T/MM3 (1.8-7.7); NEUTROPHILS % (AUTO) 66.8 % (33-66); RED BLOOD COUNT 2.75 M/MM3 (4.00-5.20); WBC - WHITE BLOOD COUNT 2.7 T/MM3 (4.5-11.0)
[2016-07-23] MEDS: NITROGLYCERIN 0.4 MG SUBLINGUAL TABLET SL PRN ×2 (11:35→11:50)
--- NOTE | 2016-07-23 11:35 | ERPDOC ---
Departure Disposition Decision Date: Jul 23, 2016 Disposition Decision Time: 12:44 Disposition: 01 DISCHARGED HOME, SELF-CARE Impression Impression Impression: Primary Impression: Chest discomfort Additional Impressions: Valvular heart disease PAROXYSMAL ATRIAL FIBRILLATION Condition: Improved Seen By: Physician only Referrals: WILLIAM MARRERO DO (Family) KASANDRA GRANADOS 1 Week Patient Instructions: Atrial Fibrillation (ED), Chest Pain (ED) Problems/Meds/Labs Reviewed?: Yes Medications reviewed and manag: Yes Additional Instructions: 1) CONTINUE HOME MEDICATIONS DIRECTED 2) CONTACT DR. GRANADOS'S OFFICE 07/25/16, TO SCHEDULE AN APPOINTMENT IN THE NEXT WEEK 3) RETURN TO ER NEEDED FOR WORSENING SYMPTOMS OR FURTHER CONCERNS Follow up care ordered?: Yes Mental Status: Alert, Oriented HPI - Cardiac General Chief Complaint: Cardiac Complaint Stated Complaint: TIGHTNESS IN CHEST, POSS AFIB Time Seen by Provider: 11:15 Source: patient, family (daughters) Exam Limitations: no limitations HPI - Cardiac General Initial Comments 76 YO WF who presents to ER for chest "tightness." She states the chest tightness was noted early this morning and has been a constant "tightness." She cannot give an exact time but believes it was before 8 am so this discomfort has been ongoing for several hours. Patient has history of atrial fibrillation and has a pacemaker. She also has mitral valve stenosis and aortic valve stenosis. 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 Patient is chronically anemic. She reports intermittent episodes similar to this morning, but states this episode did not resolve as quickly as usual. Does NOT seem to be exacerbated by activity such as getting dressed or going to the bathroom. She currently rates her discomfort 2/10. Patient denies nausea, dizziness, shortness or breath, syncope in association with chest discomfort. No known fever, chills or night sweats. Daughter has been monitoring heart rate and blood pressure rigorously this morning and reports that heart rate has been 85-95 bpm and blood pressure has been "okay." The wrist monitor has read "Afib" intermittently. Occurred At: home Pain/Severity Scale: Now: 2/10 Location: substernal 1 - tightness across chest Nitro Today/Relief: no nitro taken today Aspirin Today: contraindicated Associated Symptoms: malaise, DENIES: cough, diaphoresis, fever/chills, headaches, loss of appetite, nausea/vomiting, rash, seizure, shortness of breath , syncope Hx of Similar Symptoms: Yes Allergies: Coded Allergies: Iodinated Contrast Media - Oral and (Verified Allergy, Unknown, 07/23/16) Past History Past Medical History Metabolic: hypertension Cardiac: A-fib, other (aortic stenosis; mitral stenosis) Hx Echocardiogram: Yes GI: GERD, ulcers Neurological: TIA Surgical History General: gallbladder, other Cardiac: pacemaker Reproductive/: hysterectomy Social History Substance Use Type: does not use Housing: house Current Occupational Status: retired Review of Systems Constitutional Constitutional: fatigue, DENIES: chills, dizziness, fever, syncope Eyes General: DENIES: erythema, exudate, photophobia Vision: DENIES: blurring ENMT Ears: DENIES: drainage Sinuses: DENIES: congestion Nose: DENIES: nosebleeds Mouth/Throat: DENIES: painful swallowing Cardiovascular Cardiac: chest pain ("tightness"), see HPI, DENIES: dyspnea on exertion Rhythm/Rate: palpitations Pulmonary Respiratory: DENIES: cough, dyspnea, pleuritic chest pain GI Upper Abdomen: DENIES: nausea, vomiting Lower Abdomen: DENIES: diarrhea General: DENIES: burning, dysuria, frequency, pain, urgency Neurological General: DENIES: dysarthria, headache, numbness, seizures, syncope, weakness Physical Exam General General Nourishment: well nourished, well developed, appears stated age, no acute distress Vitals and Pain First Documented Vital Signs Date Time Temp Pulse Resp B/P Pulse Ox O2 Delivery O2 Flow Rate FiO2 07/23/16 11:11 97.7 72 20 165/72 97 Room Air Weight: Kilograms: 72.400 Height (feet): 5 Height (inches): 3.00 Triage Pain Scale: RN VS reviewed by Provider: Yes Normal Exams: Head: Normocephalic w/o trauma Eyes: Pupils are PERRLA w/ EOMI, No scleral icterus ENMT: No facial trauma, nasal exudates, pharyngeal erythema Chest/Resp: Clear all tracy, with good airflow, and symmetry bilaterally Abdomen: Bowel sounds positive, soft, non-tender, non-distended, no hepatosplenomegaly Lymphatic: No lymphadenopathy, or lymphedema noted Musculoskeletal: No tenderness, or deformity noted Integumentary: No rashes, hives, or bruising noted Neurologic: Patient is alert, and oriented, cranial nerves, motor/sensory/ cerebellar, exams w/o gross deficits Psychiatric: Patient exhibits, appropriate attention, emotion and affect Cardiovascular (brief) Cardiac: FOUND: murmur (holosystolic), regular rate, regular rhythm, NOT FOUND : pedal edema Capillary Refill: <2 sec Pulses: all distal extremities, equal, strong Differential Diagnoses Considering: Acute NC, Angina, Atrial Fibrillation, Pulmonary Edema Progress Results/Orders Orders Procedure Category Date Status Time EKG EKG 07/23/16 Logged Cbc W/Auto LAB 07/23/16 Complete Diff-Reflex Manual 11:18 Cmp - Comprehensive LAB 07/23/16 Complete Metabolic 11:18 Probnp LAB 07/23/16 Complete 11:18 Troponin I W LAB 07/23/16 Complete Hemolysis Index 11:18 INR LAB 07/23/16 Complete 11:18 Ua, Dip Wreflex LAB 07/23/16 Logged Microsc & Clinical Nurse Occupational Medicine 11:18 Tsh - Thyroid Stim LAB 07/23/16 Complete Hormone 11:18 Magnesium LAB 07/23/16 Complete 11:18 Chest, Pa & Lateral RAD 07/23/16 Taken 11:18 Iv Lock (Ed Only) EDM 07/23/16 Transmitted 11:18 Aspirin (Asa) PHA 07/23/16 Complete 11:30 Nitroglycerin PHA 07/23/16 In Process (Nitrostat) 11:30 Lab Results Laboratory Tests Test 07/23/16 11:29 White Blood Count 2.7T/MM3 Red Blood Count 2.75M/MM3 Hemoglobin 10.2GM/DL Hematocrit 29.5% Mean Corpuscular Volume 107.3UM3 Mean Corpuscular Hemoglobin 37.1UUG Mean Corpuscular Hemoglobin Concent 34.6GM/DL RDW Standard Deviation 57.4FL Platelet Count 118T/MM3 Mean Platelet Volume 9.5UM3 Immature Granulocyte % (Auto) 0.4% Neutrophils (%) (Auto) 66.8% Lymphocytes (%) (Auto) 22.8% Monocytes (%) (Auto) 5.6% Eosinophils (%) (Auto) 3.7% Basophils (%) (Auto) 0.7% Absolute Immature Granulocyte (auto 0.01T/MM3 Absolute Neutrophils (auto) 1.8T/MM3 Absolute Lymphocytes (auto) 0.6T/MM3 Absolute Monocytes (auto) 0.2T/MM3 Absolute Eosinophils (auto) 0.1T/MM3 Absolute Basophils (auto) 0.0T/MM3 Prothromb Time International Ratio 1.76 Turbidity < 20 Sodium Level 144MEQ/L Potassium Level 4.3MEQ/L Chloride Level 110MEQ/L Carbon Dioxide Level 21MEQ/L Anion Gap 13MEQ/L Blood Urea Nitrogen 23.0MG/DL Creatinine 0.8MG/DL Glomerular Filtration Rate Calc 70 BUN/Creatinine Ratio 29RATIO Glucose Level 115MG/DL Calculated Osmolality 282MOSM/KG Calcium Level 9.7MG/DL Magnesium Level 1.7MG/DL Total Bilirubin 0.90MG/DL Icterus Index < 2 Aspartate Amino Transf (AST/SGOT) 56U/L Alanine Aminotransferase (ALT/SGPT) 51U/L Alkaline Phosphatase 71U/L Troponin I < 0.012ng/ml UH-Lpr-F-Type Natriuretic Peptide 595PG/ML Total Protein 7.7G/DL Albumin 3.9G/DL Globulin 3.8G/DL Albumin/Globulin Ratio 1.0RATIO Thyroid Stimulating Hormone (TSH) 2.15MIU/L Chemistry Specimen Hemolysis < 15 Medications Current ED Medications Aspirin (ASA) 324 mg O ONCE PO ; Start 07/23/16 at 11:30; Stop 07/23/16 at 11: 31; Status DC Nitroglycerin (Nitrostat) 0.4 mg Q5MIN PRN SL CHEST PAIN Last administered on t 11:50; Start 07/23/16 at 11:30 Progress Progress 1150: No change in chest discomfort after NTG 0.4 mg SL x 1. BP 116/56 P 61. Discomfort still rated 2/10. 1204: Chest discomfort resolved after NTG 0.4 mg SL #2. EKG EKG : Rate: 60-100 (83 bpm) Rhythm: other (paced-atrial pacemaker) QRS: normal Intervals: normal ST/T: normal Interpreted by: signing physician Consult/PCP Consult/PCP : Physician Contacted: Dr. Martinez (call [facility]) Time Called: 12:18 Time of first response: 12:28 Type of discussion: Phone Consult/PCP Discussion Details 1230: Discussed case with Melissa Moran APRN. Reviewed history, lab, chest x-ray , EKG. She will discuss with Dr. Martinez and call back. 1240: Toni Moran, [employer], calls back to ER. Patient may be dismissed home today and follow up with Dr. Granados next week. Discussed reasons for patient to return to ER, etc. Xray Xray : Xray: CXR PA/Lat (No consolidation or effusion. Heart and mediastinum WNL. Pacemaker noted.) Interpretation: Interpreted by CHELI Teran MD Jul 23, 2016 11:35
[2016-07-23 11:39] LABS: INR 1.76 (0.76-1.04); PROTHROMBIN TIME 19.2 SEC (9.31-12.49)
--- NOTE | 2016-07-23 11:40 | NUR ---
XRAY PATIENT TO RADIOLOGY PER CART, STABLE.
[2016-07-23] MEDS ORDERED: CALC-727 PO (11:43)
[2016-07-23 11:44] LABS: ALBUMIN 3.9 G/DL (3.5-5.0); ALKALINE PHOSPHATASE 71 U/L (38-126); ALT (SGPT) 51 U/L (9-52); ANION GAP 13 MEQ/L (5-15); AST (SGOT) 56 U/L (14-36); BUN/CREATININE RATIO 29 RATIO (6-26); CALCIUM 9.7 MG/DL (8.4-10.2); CHLORIDE 110 MEQ/L (98-107); CO2 - CARBON DIOXIDE 21 MEQ/L (22-30); CREATININE 0.8 MG/DL (0.7-1.2); GLOMERULAR FILTRATION RATE 70; GLUCOSE 115 MG/DL (65-110); MAGNESIUM 1.7 MG/DL (1.6-2.3); POTASSIUM 4.3 MEQ/L (3.6-5); SODIUM 144 MEQ/L (134-144); TOTAL PROTEIN 7.7 G/DL (6.3-8.2)
[2016-07-23] MEDS ORDERED: WARF5TAB6 PO (11:47)
[2016-07-23] MEDS ORDERED: SOTA80TA PO (11:47)
[2016-07-23] MEDS ORDERED: WARF3TAB6 PO (11:47)
[2016-07-23] MEDS ORDERED: MELA3CAP PO (11:48)
--- NOTE | 2016-07-23 11:48 | NUR ---
PAIN UPDATE PATIENT REPORTS CP REMAINS AT 2/10, REPORTS NOT REAL CHANGE IN CHEST PAIN AT THIS TIME.
[2016-07-23 11:57] LABS: PROBNP 595 PG/ML (0-175)
--- NOTE | 2016-07-23 12:04 | NUR ---
CP UPDATE PATIENT REPORTS CHEST PAIN HAS RESOLVED AT THIS TIME.
[2016-07-23 12:14] LABS: THYROID STIM HORMONE-TSH 2.15 MIU/L (0.47-4.68)
--- NOTE | 2016-07-23 12:47 | NUR ---
UPDATE PATIENT LYING IN BED, DAUGHTERS AT BEDSIDE. PATIENT REPORTS NO CHANGE IN CONDITION AT THIS TIME. PATIENT DENIES NEEDS. OFFERED TOILETING, PATIENT REPORTS SHE DOES NOT NEED TO GO.
[2016-07-23 13:07] VITALS: BP 129/62; PULSE 63; RESP 22; TEMP 97.7; O2SAT 97
--- NOTE | 2016-07-24 09:40 | DI ---
INDICATION: ITS.REASON: CHEST TIGHTNESS PROCEDURE: CHEST 2-VIEWS UPRIGHT (PA \T\ LAT) Encounter: Initial Comparison: December 26, 2013 Findings: The lungs are stable in appearance without new focal airspace consolidation. Hyperinflation and evidence of emphysema. There is no pleural effusion or pneumothorax. The heart size, pulmonary vascularity and mediastinal contours are unchanged. New left-sided dual-lead cardiac pacemaker. Mitral annular calcifications. IMPRESSION: No acute cardiopulmonary disease. .
== END 2016-07-23 13:07 | disposition home or self-care (01) ==
LOC: ED 11:10
DX: R07.89 Other chest pain (principal); I35.0 Nonrheumatic aortic (valve) stenosis; I05.0 Rheumatic mitral stenosis; I48.0 Paroxysmal atrial fibrillation; I10 Essential (primary) hypertension; Z79.01 Long term (current) use of anticoagulants
CPT/HCPCS: 36000; 71020; 80053; 83735; 83880; 84443; 84484; 85025; 85610; 93005; 99284; A9270

== ENCOUNTER 2017-04-19 11:59 | Inpatient (IN) ==
--- OUTSIDE RECORDS SUMMARY | 2017-04-19 18:25 | External Medical Summary | Clinical Summary ---
:1940 Author Organization [facility] Address [address] [place] [address] Phone Care Team Providers Name Role Phone Unavailable Primary Care Provider Unavailable Source Comments Some departments are not documenting in the electronic medical record. If you do not see the information that you expected, contact Release of Information in the Health Information Management department at [phone] for further assistance in locating additional records.[facility] Social History Tobacco Use Types Packs/Day Years [...]
[2017-04-19] MEDS ORDERED: INDOMETHACIN 25 MG CAPSULE PO PRN (21:03)
[2017-04-19] MEDS: AMLODIPINE 10 MG TABLET PO SCH (22:46)
[2017-04-19] MEDS: SOTALOL 80 MG TABLET PO SCH (22:47)
[2017-04-19] MEDS: TRAMADOL 50 MG TABLET PO PRN (22:52)
[2017-04-20] MEDS ORDERED: OMEPRAZOLE 20 MG CAPSULE PO SCH (06:30)
[2017-04-20] MEDS: TRAMADOL 50 MG TABLET PO PRN ×3 (06:52→20:40)
[2017-04-20] MEDS: SOTALOL 120 MG TABLET PO SCH (07:11)
[2017-04-20] MEDS: HYDRALAZINE 10 MG TABLET PO SCH ×2 (08:53→18:15)
[2017-04-20] MEDS: LOSARTAN 50 MG TABLET PO SCH ×2 (08:53→20:39)
[2017-04-20] MEDS: CALCIUM 500 + VIT D 200 TABLET PO SCH (08:54)
[2017-04-20] MEDS: azaTHIOprine 50 MG TABLET PO SCH (08:54)
[2017-04-20] MEDS ORDERED: PANTOPRAZOLE 20 MG TABLET PO ONE (09:05)
[2017-04-20] MEDS: SENNA + DOCUSATE TABLET PO SCH (09:51)
[2017-04-20] MEDS: LACTULOSE 20 GM/30 ML ORAL LIQUID PO SCH (09:51)
[2017-04-20] MEDS: MULTI-VITAMIN + MINERAL TABLET PO SCH (09:51)
[2017-04-20] MEDS: SUCRALFATE 1 GM TABLET PO SCH ×4 (09:52→20:40)
[2017-04-20] MEDS: POLYETHYL GLYCOL 3350 17gm PACKET PO SCH (09:52)
--- NOTE | 2017-04-20 10:20 | IRU History & Physical Report ---
HPI IRU Date: Date: 04/20/17 Time: 1016 Chief complaint: I broke my arm HPI: Ms. Calderon is a very pleasant 76-year-old female referred by Dr. Pepper. Her primary care physician is Dr. Harrison Viera. She normally lives alone at home. Unfortunately she fell on 04/15/2016 when she was going down some stairs. She actually does not recall the event. She states that her daughter believes that she tripped over some mats that had been folded up. She did have some head trauma and hit her nose on the way down. This resulted in a fracture of the right proximal humerus and she was seen in the emergency department at that time. In the emergency department several radiographs were obtained including right femur x-ray which was negative, right humerus x-ray demonstrating a minimally displaced fracture through the proximal right humeral neck. Because of possible head trauma, head CT was done on April 15 in the emergency department demonstrating a possible nasal bone fracture. Dedicated maxillofacial CT was done at that time also indicating possible fracture but it could have been chronic. She was stabilized in the emergency department and placed in a sling and given oxycodone for pain relief. She was referred to Dr. Pepper who saw her on 2017. She had developed significant nausea and did not feel as though she was safe to go home. The patient was admitted to observation status for pain control and management. She is struggling with severe nausea and has had some vomiting of "phlegm." In addition she has difficulty with pain management and has a lot of discomfort in the right humerus. When the arm is at rest there is not much discomfort but with any movement whatsoever there is severe pain in the humerus. There is some discomfort in the right jaw area as well as some bruising in that area. She has a diagnosis of autoimmune hepatitis which she has had for some 8 or 9 years. She sees a gastroneurologist in [place] () for management of the hepatitis/cirrhosis. She is on lactulose, 2 tablespoons once daily for prevention/treatment of encephalopathy related to the cirrhosis. She currently takes azathioprine, 150 mg once daily for the autoimmune process. She states that she was on prednisone a number of years ago but it has been quite a while. History obtained from the chart indicates that she had colonoscopy and EGD in September 2015 demonstrated diverticulosis, a single polyp and a grade 1 esophageal varices without acute bleed. She was found to have an initial hemoglobin of 8.4 on April 15, dropping to 7.6 on April 17 and 6.5 on April 18. She has had leukopenia with white counts around 2-3000. Platelet count has been low at 123,000, then 143,000 and finally down to 103,000. Her INR has been elevated at 2.6-2.9. She is on warfarin 5 mg daily for intermittent atrial fibrillation. The etiology of her significant anemia is unclear. Stool for occult blood was negative. She has had no overt signs of bleeding. She has received blood transfusions and now her hemoglobin is over 9 g percent. She does have history of anemia but does not have history of blood transfusions until this admission. She states that she sees , oil distributor tender, for her atrial fibrillation. She also has heart murmurs and carries a diagnosis of both aortic stenosis and mitral stenosis (I have not seen actual documentation on echocardiogram in this regard however). She is on sotalol 120 mg in the morning and 80 mg in the evening.. She does have an implanted permanent pacemaker. She goes in and out of atrial fibrillation at least 3-4 times weekly and sometimes daily. She is able to tell when she is in atrial fibrillation by virtue of irregular heart beating but not rapid heart beating. She states that she has had tests on her heart and she does not believe she has coronary disease. While on observation status she was managed by the hospitalist service. Dr. Pepper does not recommend operative intervention regarding the humerus fracture. The patient lives alone in her own home. She has 1 step to get up into her house and 2 steps to get down into the dining room. She does not use an assistive device at home. Prior level of functioning: She was independent for all activities. She does not use an assistive device at home. Her daughters do assist with IADLs however. The patient is independent with ADLs. Current level of functioning is that she is independent for eating. She requires moderate assistance for toileting, minimum assistance for bed/chair/ wheelchair transfers, minimum assistance for toilet transfers, minimum assistance for walking. She has had to live with her daughter since she fell on April 15. She has needed assistance and pulling up her pants as she is right- hand dominant and that is the side that was fractured. She is unable to currently use her right hand. She has required assistance with other ADLs since her fall on April 15. The following medical conditions are noted and require active monitoring and/or management: 1. Acute proximal right humerus fracture with pain and uncontrolled nausea. She is at risk for continued uncontrolled pain and dehydration. 2. Acute anemia in the setting of thrombocytopenia and use of warfarin. Hemoglobin 6.5 g percent requiring blood transfusion. Hemoglobin is improved but she is at risk of further anemia and this will be monitored carefully. 3. Autoimmune hepatitis with cirrhosis, thrombocytopenia and leukopenia with elevated INR (on warfarin). 4. Hypertension: In view of the discomfort in the arm she is at risk for uncontrolled hypertension. In view of her anemia she is at risk of hypotension. This will be monitored carefully. 5. Paroxysmal atrial fibrillation. She is at risk for uncontrolled atrial fibrillation and hypotension. The following therapies will be needed: 1. Physical therapy: for transfers and ambulation and stairs. 2. Occupational therapy: for ADL's and transfers. 3. Medical management: for the above conditions. 4. 24 hour Rehabilitation Nursing to monitor and address the following: Careful monitoring of evidence for further acute blood loss, hypotension, reduction in fall risk, control of pain. [facility] Patient Stated Medical History Transient Ischemic Attacks ( Yes TIA) Cardiac Arrhythmia Yes: a-fib Heart Murmur Yes Hypertension Yes Valvular Heart Disease Yes: aortic and mitral valve stenosis Constipation Yes: new onset with pain meds Ulcer Yes: hx of Hx Incontinence No Hx Renal Disease No Anemia Yes: chronic Osteoarthritis Yes Blood Transfusions Yes: x2 Other Reproductive Yes: tumor removed from uterus Clinic Medical History (Last Reviewed 04/17/17 @ 12:41 by Joce Pepper MD) Aortic stenosis (Chronic Medical) Atrial fib/flutter, transient (Chronic Medical) HTN (hypertension) (Chronic Medical) High cholesterol (Chronic Medical) Liver disease (Chronic Medical) Mitral valve stenosis (Chronic Medical) Osteoporosis (Chronic Medical) Medical History Updates: 1. Aortic stenosis. 2. Mitral valve disease, reportedly mitral stenosis. 3. Paroxysmal atrial fibrillation occurring several times weekly. 4. Autoimmune hepatitis currently on Imuran. 5. Low- grade esophageal varices. 6. Anemia, chronic with acute exacerbation. 7. Hypertension Surgical History: cholecystectomy. pacemaker. hysterectomy with unilateral salpingo-oophorectomy. laparoscopy with lysis of adhesions. History of large cyst removed from abdomen. Patient states that she was also 5 months at that time. T and A Family History: Family History (Last Reviewed 04/17/17 @ 12:41 by Joce Pepper MD) Father No significant active problems Family History Updates: She states that her mother had quadruple bypass and thus atherosclerotic heart disease. Father had diabetes. Sister has diabetes. - Social History Smoking status: Never smoker Substance use type: does not use Alcohol intake: former (states that she drank a bit about 35 years ago but none since.) Housing: house Household members: none Current occupational status: retired Current residence: Apartment/Private Home Social history: Patient lives alone in her own home. Her in 2012. He worked as a cytotechnologist/cytology supervisor for the [employer]. 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 Review of Systems - Constitutional Constitutional: Present: fatigue. Absent: anorexia, chills, fever(s), headache( s), lethargy, malaise, night sweats, weakness, weight gain, weight loss - EENMT Eyes: Absent: blurry vision, change in vision, diplopia Mouth/Throat: Absent: changes in swallowing, painful swallowing, change in taste , bleeding gums, change in voice - Cardiovascular Cardiovascular: Present: palpitations (several times weekly apparently related to atrial fibrillation), dyspnea on exertion (recently), heart murmur (reported mitral stenosis and aortic stenosis.). Absent: chest pain, syncope, orthopnea, edema, cyanosis Rhythm: Present: abnormal rhythm (history of paroxysmal atrial fibrillation) Vascular: Absent: intermittent claudication, pedal edema, unilateral swelling - Respiratory Respiratory: Present: dyspnea, dyspnea on exertion. Absent: cough, hemoptysis, wheezing, pain on inspiration, chest congestion, excessive phlegm production - Gastrointestinal Gastrointestinal: Present: diarrhea (she tends to have loose stools.). Absent: abdominal pain, change in bowel habits, constipation, dyspepsia, dysphagia, early satiety, hematochezia, melena, nausea, vomiting - Musculoskeletal Musculoskeletal: Present: limited range of motion (related to current humerus fracture). Absent: abnormal gait, arthralgias, back pain, joint swelling, muscle weakness - Integumentary/Breasts Integumentary: Absent: alopecia, erythema, lesions, pruritus, rash, jaundice - Neurological Neurological: Present: weakness. Absent: abnormal gait, abnormal movements, abnormal speech, confusion, convulsions, dizziness, focal weakness, frequent falls, headache(s), loss of vision, memory loss, numbness, paresthesias, tremor( s) - Psychiatric Psychiatric: Absent: abnormal sleep pattern, anxiety, depression - Endocrine Endocrine: Absent: cold intolerance, flushing, heat intolerance, palpitations - Hematologic/Lymphatic Hematologic/Lymphatic: Absent: easy bleeding, easy bruising, lymphadenopathy - Allergic/Immunologic Allergic/Immunologic: Absent: urticaria Medications Home Medications Medication Instructions Recorded Confirmed Type Amlodipine Besylate 10 mg PO HS #0 12/26/13 04/19/17 History Lactulose 10 g PO DAILY #0 12/26/13 04/19/17 History Losartan Potassium 50 mg PO BID #0 12/26/13 04/19/17 History Omeprazole 20 mg PO HS #0 12/26/13 04/19/17 History azaTHIOprine [Imuran] 150 mg PO DAILY #0 12/26/13 04/19/17 History hydroCHLOROthiazide 12.5 mg PO WB #0 12/26/13 04/19/17 History [Hydrochlorothiazide] Calcium Carbonate/Vitamin D3 1 tab PO DAILY #0 07/23/16 04/19/17 History [Calcium 600-Vit D3 200 Tablet] ALPRAZolam [Xanax] 1 tab PO PRN PRN 04/15/17 04/19/17 History Indomethacin [Indocin] 1 tab PO PRN PRN 04/15/17 04/19/17 History Hydralazine [Apresoline] 10 mg PO BID 04/17/17 04/19/17 History Mv,Butch,Min/Iron/Folic Acid/Lut 1 tab PO DAILY 04/17/17 04/19/17 History [Complete Multi Tablet] Allergies Allergy/AdvReac Type Severity Reaction Status Date / Time Iodinated Contrast- Oral and Allergy Unknown Itching Verified 04/19/17 19:50 IV Dye Results IRU - Labs Labs: I reviewed extensive inpatient notes from other providers, labs and radiographic findings. Exam Vital Signs: Temperature 98.0 F 04/20/17 08:00 Pulse Rate 64 04/20/17 08:00 Respiratory Rate 16 04/20/17 08:00 Blood Pressure 167/79 H 04/20/17 08:00 Pulse Oximetry 92 04/20/17 08:00 Height/Weight/BMI: Height 1.6 m Weight 76.4 kg - Constitutional Present: moderate distress (related to her right humerus pain), well nourished, well developed, average body habitus, cooperative - Routine HEENT Exam Head: Present: normocephalic, atraumatic. Absent: cushingoid faces, abrasion, laceration, hematoma Eye: Present: EOMI, PERRL. Absent: conjunctival icterus, scleral injection, periorbital swelling, nystagmus ENT: Present: mucous membranes moist, oropharynx clear - Routine Neck Exam Present: supple, full ROM, trachea midline. Absent: lymphadenopathy, thyromegaly, tenderness, swelling - Routine Chest/Breast/Axilla Exam Chest wall: Absent: tenderness, mass Axillae: Absent: lymphadenopathy, mass - Routine Respiratory Exam Present: CTA bilaterally. Absent: accessory muscle use, decreased breath sounds , prolonged expiratory phase, rales, respiratory distress, rhonchi, stridor, wheezes, crackles, distant breath sounds - Routine Cardiovascular Exam Present: RRR, S1, S2, murmur (grade 3/6 systolic murmur second right interspace and left sternal border. I do not hear a diastolic murmur at present.). Absent : gallop, S3, S4, click, irregular rhythm - Routine Abdominal Exam Present: soft, normoactive bowel sounds, non distended, non tender. Absent: rebound, guarding, firm, rigid, organomegaly, mass, hernia, wound - Routine Extremities Exam Present: no edema, non tender, pulses intact, normal capillary refill. Absent: cyanosis, clubbing - Routine Back/Spine/Pelvis Exam Back/Spine: Present: full ROM. Absent: scoliosis, kyphosis - Routine Skin Exam Present: intact, dry, warm. Absent: cyanosis, erythema, pallor, mottling, petechiae, urticaria, lesions, jaundice - Routine Neurological Exam Present: alert, oriented X3, CN II-XII intact, normal speech. Absent: moving all extremities (secondary to right humerus fracture) - Routine Psychiatric Exam Present: normal affect, normal thought process, cooperative, good insight, good judgment. Absent: depressed, anxious Sepsis Assessment - Evaluation Severe Sepsis: none seen IRU A/P (1) Closed fracture of right proximal humerus Qualifiers: Encounter type: initial encounter Fracture alignment: displaced Status: Acute Patient has recently suffered a fractured proximal humerus. She has significant pain with this which is been difficult to control. Nonoperative treatment is recommended by orthopedics. She will require a multidisciplinary approach to regain ADLs and self-care. (2) Nausea Status: Acute She has had difficulty with severe nausea since the humerus fracture and pain medication. She is at risk for dehydration. (3) Pancytopenia Status: Chronic She displays chronic pancytopenia although hemoglobin has been significantly low at 6.5 g percent. Stool for occult blood was negative. Etiology of the additional drop in hemoglobin is not clear. Hematology is consulted. (4) Autoimmune liver disease Status: Chronic DVT Prophylaxis: SCD's Resuscitation Status: Full Code - Course Hospital Course: Scot Bartholomew MD: - Interventions to Obtain Goals PT Treatment Plan: Balance/Proprioception, Functional Activities, Gait Training , Patient/Family Education OT Treatment Plan: ADL (Basic Care), Balance Training, IADL, Pt./Family Education, Ther. Exercise for ADL Goals Progress/Modifications: This patient has a recent right humerus fracture was difficult to control pain and nausea. She requires a multidisciplinary approach in view of her recent worsening anemia at 6.5 g percent requiring blood transfusion while on observation in the hospital. No overt evidence of bleeding is noted although she does have low-grade esophageal varices by report. She does have history of autoimmune hepatitis and reportedly has cirrhosis although I have not seen the actual documentation. She requires physical therapy, occupational therapy, 24 hour rehabilitation nursing for pain management and monitoring of evidence of further blood loss. She requires medical supervision of these problems.
--- NOTE | 2017-04-20 10:51 | Consult Note ---
Consult Information - Data of Consult Consult date: 04/20/17 Requesting Physician: Scot Bartholomew MD Primary Care Provider: DO Harrison Barker DO Family Provider: Harrison Viera DO - Consult Narrative Reason for consult: medical management, anemia History of present illness: Fernanda Calderon is a very pleasant 76-year-old patient for Dr. Harrison Viera and is known to the hospitalist service. She reports that on 04/15/17 she fell at home. She is unable to recall why she fell but denies any symptoms prior to her fall including no chest pain, shortness of breath, abdominal pain, nausea, vomiting, diarrhea or diaphoresis. When she fell she landed on her right side and admits to hitting her head and face on the floor as well as her right arm and right hip. She is unsure if she lost consciousness. She was brought to [facility] by family for further evaluation. Extensive imaging was obtained and revealed minimally displaced right proximal humerus fracture as well as a nasal fracture. Head CT showed no acute intracranial abnormality or hemorrhage. X- ray of the right femur showed no acute fractures. Labs revealed anemia with hemoglobin of 8.4. She admits to a history of chronic pancytopenia and reports that her hemoglobin is usually in the 9's and states that she has it checked every couple of months. She had a history of autoimmune liver disease and follows with Dr. Monahan ([facility]). She was discharged from the ED on with sling placement, home pain control and nausea medication and instructed to follow up with Dr. Pepper. She was seen in clinic on 04/17/[address] Pepper and revealed that the oxycodone had been making her extremely nauseated despite taking it with Zofran resulting in very poor oral intake. Due to her intractable pain and nausea, she was admitted to observation status under Dr. Pepper on 04/17/17. The hospitalist service was consulted for medical management. In addition to her chronic liver disease, she has a history of aortic stenosis and is chronically anticoagulated on Coumadin. She follows with Dr. Chavez (cardio in [place]) for her a-fib, hypertension and aortic stenosis. On admission, labs were obtained and revealed slight decrease in her hemoglobin at 7.6 from prior hemoglobin of 8.4 on 04/15. INR was noted to be therapeutic at 2.93. Dr. Pepper elected to proceed with conservative management of her acute fracture with sling placement. She was anticipated to discharge to IRU on for initiation of rehabilitation at which time she was noted to have a critical hemoglobin at 6.5 and had significant symptoms with her anemia including lightheadedness with near syncope with sitting up and standing. She was also having difficulty obtaining pain control due to her nausea as well as hesitation to take oral pain medication. She was transfused with 1 unit PRBC on 04/18/17 with slight improvement in her hemoglobin. SCr also increased to 1.4 but improved following blood transfusion as well as IV fluid hydration. With the down trending of the hemoglobin and symptomatic anemia as well as chronic anticoagulation with Coumadin, there was concern for acute bleeding. She admits to a history of prior duodenal ulcer and GERD. Dr. Hickey was contacted and agreed with changing Fernanda's home Prilosec to Protonix 20mg BID as well as the addition of Carafate for GI protection. Dr. Patricia's office was consulted with regard to the patient's anticoagulation and recommended discontinuing the Coumadin in light of possible GI bleed and recommended initiation of ASA 325mg daily once the bleeding was controlled in light of her a -fib. She remained symptomatic following the 1 unit of PRBC and was subsequently given an additional 1 unit PRBC on 04/19/17 with improvement. Fecal Hemoccult was obtained and was negative. With the improvement of her pain and nausea she was able to be transferred to IRU for initiation of rehabilitation. She is seen this morning while resting in bed and reports that she has had a good morning. She states she was able to get up and dress herself and went to breakfast. She continues to have some mild lightheadedness with standing but reports that it is improved as compared to yesterday. She reports that her pain is more controlled today and denies any nausea or vomiting, though she still does not have much appetite. No chest pain, shortness of breath, abdominal pain , dysuria or hematuria. Her right arm remains stabilized in the sling. Her daughter/DPOA, Amy, contacted the hospitalist service this morning to express concern about her mothers elevated blood pressure. This morning prior to medications, her blood pressure was noted to be 142/66. Trends reveal that her blood pressure does elevate with standing, most likely secondary to pain. Extensive review of her prior medical records, ED records, nursing notes as well as multiple consultations with Dr. Hickey and Dr. Chavez were conducted. Her daughter, Amy, also wanted to pass on that in 2016 the patient underwent an endoscopy capsule study which resulted in additional CT imaging which reportedly showed mild narrowing of the renal artery. She states that at the time Dr. Hickey's was not concerned but she now feels like it may be contributing to her mother's elevated blood pressure. The CT results are not currently available for review, but will try and obtain. Past Medical History Patient Stated Medical History Chronic paroxysmal a-fib. Hypertension. Hyperlipidemia. Aortic stenosis. Chronic autoimmune disease/cirrhosis. Esophageal varices, grade 1. Chronic pancytopenia. Osteoarthritis. Diverticulosis. History of duodenal ulcers. History of TIAs. History of anemia with blood transfusions. Surgical History: Cholecystectomy. Pacemaker. Hysterectomy. Laparoscopy with lysis of adhesions. Family History Updates: Positive for diabetes, heart disease and CHF. Parents reportedly in their 70-80's. - Social History Smoking status: Never smoker Substance use type: does not use Alcohol intake frequency: does not drink Housing: house Household members: none Current occupational status: retired Current residence: Apartment/Private Home Social history: PCP - Dr. Harrison Viera. GI - Dr. Monahan. Cardio - Dr. Chavez. Heme - Dr. Jeffers. Review of Systems All systems PM: 10-point ROS was reviewed, no additional remarkable complaints except - Constitutional Constitutional: Present: fatigue, weakness (generalized). Absent: chills, fever (s), headache(s) - EENMT Eyes: Absent: change in vision, photophobia Ears: Absent: ear pain Balance: Absent: falling to one side Nose: Absent: nosebleeds Mouth/Throat: Present: dry mouth. Absent: sore throat, changes in swallowing - Cardiovascular Cardiovascular: Present: syncope (near-syncope), edema, heart murmur. Absent: chest pain, palpitations, dyspnea on exertion, orthopnea Rhythm: Present: other (history of a-fib, currently NSR) Vascular: Present: pedal edema. Absent: pallor of an extermity - Respiratory Respiratory: Absent: cough, dyspnea, hemoptysis, dyspnea on exertion, wheezing, pain on inspiration - Gastrointestinal Gastrointestinal: Present: constipation. Absent: abdominal pain, diarrhea, hematochezia, melena, nausea, vomiting - Genitourinary Genitourinary: Absent: dysuria, flank pain, hematuria Menstruation: post hysterectomy - Musculoskeletal Musculoskeletal: Present: deformity (right arm - in sligh), limited range of motion (right arm), muscle weakness - Integumentary/Breasts Integumentary: Absent: rash Integumentary Comments: ecchymosis to right upper arm and right thigh secondary to recent fall. - Neurological Neurological: Present: weakness. Absent: abnormal movements, abnormal speech, confusion, convulsions Neurological Comments: lightheadedness with standing. - Psychiatric Psychiatric: Absent: anxiety, depression, mood swings - Endocrine Endocrine: Absent: flushing, heat intolerance, palpitations - Hematologic/Lymphatic Hematologic/Lymphatic: Present: easy bruising - Allergic/Immunologic Allergic/Immunologic: Absent: seasonal rhinorrhea Medications Home Medications Medication Instructions Recorded Confirmed Type Amlodipine Besylate 10 mg PO HS #0 12/26/13 04/19/17 History Lactulose 10 g PO DAILY #0 12/26/13 04/19/17 History Losartan Potassium 50 mg PO BID #0 12/26/13 04/19/17 History Omeprazole 20 mg PO HS #0 12/26/13 04/19/17 History azaTHIOprine [Imuran] 150 mg PO DAILY #0 12/26/13 04/19/17 History hydroCHLOROthiazide 12.5 mg PO WB #0 12/26/13 04/19/17 History [Hydrochlorothiazide] Calcium Carbonate/Vitamin D3 1 tab PO DAILY #0 07/23/16 04/19/17 History [Calcium 600-Vit D3 200 Tablet] ALPRAZolam [Xanax] 1 tab PO PRN PRN 04/15/17 04/19/17 History Indomethacin [Indocin] 1 tab PO PRN PRN 04/15/17 04/19/17 History Sotalol HCl [Sotalol] 1 tab PO DAILY 04/15/17 04/19/17 History Hydralazine [Apresoline] 10 mg PO BID 04/17/17 04/19/17 History Mv,Butch,Min/Iron/Folic Acid/Lut 1 tab PO DAILY 04/17/17 04/19/17 History [Complete Multi Tablet] Sotalol [Betapace] 80 mg PO HS 04/17/17 04/19/17 History Sotalol [Betapace] 120 mg PO DAILY 04/17/17 04/19/17 History Oxycodone *IR* [Roxicodone *Ir*] 1 - 2 tab PO QIDPRN PRN 04/19/17 04/19/17 History Allergies Allergy/AdvReac Type Severity Reaction Status Date / Time Iodinated Contrast- Oral and Allergy Unknown Itching Verified 04/19/17 19:50 IV Dye Exam Vital Signs: Temperature 98.0 F 04/20/17 08:00 Pulse Rate 64 04/20/17 08:00 Respiratory Rate 16 04/20/17 08:00 Blood Pressure 167/79 H 04/20/17 08:00 Pulse Oximetry 92 04/20/17 08:00 Telemetry Rhythm: Sinus Rhythm Height/Weight/BMI: Height 5 ft 3 in Weight 168 lb 6.931 oz Comments: Resting in bed; cheerful disposition. - Constitutional Present: no acute distress, well nourished, well developed, cooperative - Routine HEENT Exam Head: Present: normocephalic Eye: Present: PERRL. Absent: conjunctival icterus ENT: Present: mucous membranes dry, oropharynx clear Comments: ecchymosis to right lower jaw/chin noted prior to arrival; no dental injury. - Routine Neck Exam Present: supple, full ROM, trachea midline. Absent: tenderness - Routine Chest/Breast/Axilla Exam Chest wall: Present: pacemaker - Routine Respiratory Exam Present: CTA bilaterally. Absent: rales, respiratory distress, rhonchi, stridor , wheezes, crackles - Routine Cardiovascular Exam Present: RRR, S1, S2, murmur Comments: pacemaker - Routine Abdominal Exam Present: soft, normoactive bowel sounds, non distended, non tender - Routine Extremities Exam Present: edema (trace), pulses intact Comments: bilateral radial pulses 2+; right arm in sling; full ROM of all extremities except right upper extremity. - Routine Back/Spine/Pelvis Exam Back/Spine: Absent: vertebral tenderness Comments: limited ROM of back secondary to severe right arm pain with movement. - Routine Skin Exam Present: dry, warm. Absent: jaundice Comments: ecchymosis noted to right medial upper arm and right lower extremity/thigh. - Routine Neurological Exam Present: alert, oriented X3, moving all extremities, hearing grossly intact, normal speech. Absent: CN II-XII intact, facial asymmetry - Routine Psychiatric Exam Present: normal affect, cooperative, good insight, good judgment Results - Labs CBC & Chem 7: 04/20/17 04:22 04/20/17 04:22 Assessment and Plan (1) Closed fracture of right proximal humerus Current visit: No Status: Acute (2) Pancytopenia Current visit: Yes Status: Chronic Assessment and Plan: Assessment Right proximal humerus fracture - 04/15/17. Pancytopenia, new diagnosis. Mechanical fall vs. syncope. Anemia, acute on chronic. Atrial fib/flutter, transient, with pacemaker placement. HTN (hypertension). High cholesterol. Aortic and Mitral valve stenosis. Osteoporosis. Osteoarthritis. Autoimmune liver disease stage IV. Hx of ulcer. Diverticulosis. Esophageal varices, grade 1. Chronic leukopenia. Plan - 04/20/17 Admit to IRU for intensive rehabilitation and pain control per Dr. Bartholomew. Provide safe and supportive environment. Continue orthopedic care for proximal right humerus fracture per Dr. Pepper. Sling in place and N/V intact. Patient previously had nausea with pain medications. Nausea has improved, though oral intake remains poor. Continue to encourage oral intake. Zofran as needed for nausea. Recent severe symptomatic anemia with hemoglobin as low as 6.5 on 04/18/17. Patient received a total of 2 units PRBC (04/18/17, 04/19/17) with improvement. Continues to have some lightheadedness with standing. Monitor closely as significant fall risk. Current hemoglobin stable at 9.0. Will continue to monitor closely. Recent fecal Hemoccult was negative. Monitor closely for signs of bleeding. B12, folate and iron studies were normal. Continue home vitamins. Prior fecal Hemoccult negative. Pancytopenia noted. Patient has previously seen Dr. Jeffers in March 2016. Will consult Dr. eJffers for further evaluation and expertise. Continue Protonix and Carafate for GI protection and possible GI bleed. Home Prilosec discontinued with initation of Protonix per Dr. Hickey's recommendation. After discussion with Dr. Chavez (cardiology), patient's Coumadin was discontinued on 04/19/17. INR trending down at 2.78. He recommended initiating ASA 325mg daily once patient's hemoglobin is stable and follow up in his clinic within 1 week following discharge from IRU. Continue to monitor closely on telemetry given history of a-fib. Currently in sinus arrhythmia, rate controlled. Will continue to monitor blood counts. SCDs for DVT prophylaxis. Family expressed concern about elevated blood pressure. Review blood pressure trends and medications extensively with Dr. Espinoza. Elevated blood pressure most likely secondary to pain as seen with increase in blood pressure specifically with standing. Will hold off on additional treatment at this time and continue to monitor closely. Will discuss additional pain control measure with Dr. Bartholomew. Discussed patient care and treatment plan extensively with patient's DPOA/ daughter, Amy. She expressed concerns about the patient's blood pressure elevation which appears to be directly linked to the patient's pain. Explained that we will continue to monitor and work on pain control. Amy is ok with decision to move patient to IRU today. All questions were answered as best as possible and family expressed gratitude and is agreeable with treatment plan. Upon discharge, patient's care will be returned to her PCP, Dr. Viera. Addendum: Seen and examined patient on same day as the above note. Agree with consultation note, physical, assessment and plan by nurse practitioner Brie Villaseñor. Comprehensive physical findings correlate to the above note. I've discussed the patient's blood pressure with the patient as well as the daughter. I do believe that the issue with her blood pressure lability is secondary to pain. Mrs. Calderon is remaining rather stoic, and is not using her tramadol significantly. She has not requested her indomethacin so I'm scheduling a very short course of half dosed Toradol for the next few days so that she might have some relief. Documented on Dragon speech to text. Efforts to correct speech recognition errors performed, but variation may exist DVT Prophylaxis: SCD's GI Prophylaxis: Protonix Resuscitation Status: Full Code - Time spent with patient Time with patient PN: 70 minutes - Physician Narrative Physician: other (Dr. Espinoza) Narrative: Date: 04/20/17 Time: 1005 Hospital Course Summary Disclaimer: The visit summary below is not to be considered part of the above Progress Note. Hospital Course: Plan - 04/20/17 Admit to IRU for intensive rehabilitation and pain control per Dr. Bartholomew. Provide safe and supportive environment. Continue orthopedic care for proximal right humerus fracture per Dr. Pepper. Sling in place and N/V intact. Patient previously had nausea with pain medications. Nausea has improved, though oral intake remains poor. Continue to encourage oral intake. Zofran as needed for nausea. Recent severe symptomatic anemia with hemoglobin as low as 6.5 on 04/18/17. Patient received a total of 2 units PRBC (04/18/17, 04/19/17) with improvement. Continues to have some lightheadedness with standing. Monitor closely as significant fall risk. Current hemoglobin stable at 9.0. Will continue to monitor closely. Recent fecal Hemoccult was negative. Monitor closely for signs of bleeding. B12, folate and iron studies were normal. Continue home vitamins. Prior fecal Hemoccult negative. Pancytopenia noted. Patient has previously seen Dr. Jeffers in March 2016. Will consult Dr. Jeffers for further evaluation and expertise. Continue Protonix and Carafate for GI protection and possible GI bleed. Home Prilosec discontinued with initation of Protonix per Dr. Hickey's recommendation. After discussion with Dr. Chavez (cardiology), patient's Coumadin was discontinued on 04/19/17. INR trending down at 2.78. He recommended initiating ASA 325mg daily once patient's hemoglobin is stable and follow up in his clinic within 1 week following discharge from IRU. Continue to monitor closely on telemetry given history of a-fib. Currently in sinus arrhythmia, rate controlled. Will continue to monitor blood counts. SCDs for DVT prophylaxis. Family expressed concern about elevated blood pressure. Review blood pressure trends and medications extensively with Dr. Espinoza. Elevated blood pressure most likely secondary to pain as seen with increase in blood pressure specifically with standing. Will hold off on additional treatment at this time and continue to monitor closely. Will discuss additional pain control measure with Dr. Bartholomew. Discussed patient care and treatment plan extensively with patient's DPOA/ daughter, Amy. She expressed concerns about the patient's blood pressure elevation which appears to be directly linked to the patient's pain. Explained that we will continue to monitor and work on pain control. Amy is ok with decision to move patient to IRU today. All questions were answered as best as possible and family expressed gratitude and is agreeable with treatment plan. Upon discharge, patient's care will be returned to her PCP, Dr. Viera.
--- NOTE | 2017-04-20 11:38 | IRU 24Hr Post Admit Eval ---
24 Hr Post Admission Physical - Relevant Changes Relevant Changes: No Reviewed: I have reviewed the patient's information and concur with the finding and results of the pre-admission screen. Certification: I certify the patient for rehabilitation. - Patient Condition (1) Closed fracture of right proximal humerus Status: Acute Qualifiers: Encounter type: initial encounter Fracture alignment: displaced Code(s): S42.201A - Unspecified fracture of upper end of right humerus, initial encounter for closed fracture Classification: Present on IRF Admission, IRF Tx That Should Address Diagnosis, Diagnosis Requiring Medical Follow Up (2) Nausea Status: Acute Code(s): R11.0 - Nausea Classification: Present on IRF Admission, IRF Tx That Should Address Diagnosis (3) Pancytopenia Status: Chronic Code(s): D61.818 - Other pancytopenia Classification: Present on IRF Admission, IRF Tx That Should Address Diagnosis, Diagnosis Requiring Medical Follow Up (4) Paroxysmal atrial fibrillation Status: Chronic Code(s): I48.0 - Paroxysmal atrial fibrillation Classification: Present on IRF Admission, IRF Tx That Should Address Diagnosis, Diagnosis Requiring Medical Follow Up (5) Autoimmune liver disease Status: Chronic Code(s): K76.89 - Other specified diseases of liver Classification: Present on IRF Admission, IRF Tx That Should Address Diagnosis, Diagnosis Requiring Medical Follow Up - Prior Functional Status Lives With: Alone Residence Type: Apartment/Private Home Assitive Devices: None Prior Functional Status: Indep. at home or school, Used no assistive device - Current Functional Status Current Level of Function: Current level of functioning is that she is independent for eating. She requires moderate assistance for toileting, minimum assistance for bed/chair/ wheelchair transfers, minimum assistance for toilet transfers, minimum assistance for walking. She has had to live with her daughter since she fell on April 15. She has needed assistance and pulling up her pants as she is right- hand dominant and that is the side that was fractured. She is unable to currently use her right hand. She has required assistance with other ADLs since her fall on April 15. Failed Alternative Therapy: Yes Patient Requirements: The patient requires oversight by rehabilitation physician to manage their rehabilitation treatment plan and multidisciplinary approach to care that can only be provided in an IRF and requires a multidisciplinary approach to care, provided by professional PTs, OTs, STs, dieticians, RTs, rehabilitation nurses and is not available in lesser levels of care. Limitations Req: Mobility Impairment, ADL Impairment, Limited Mobility Physical Therapy Minutes: 90 Occupational Therapy Minutes: 90 Therapy: The patient is to receive therapy at least 5 days a week. ROM Deficit: Right Upper Extremity - Complications/Comorbidities Impact on Functional Outcomes: It is anticipated that if she continues to have further drops in her hemoglobin this will impact her functional outcome. Barriers to Discharge: Weakness, Endurance, Pain Control, Medical Limitation - Plan to Avoid Complications Plan to Avoid Complications: The patient cannot receive this care in a lesser intensive setting such as [facility] or Outpatient Therapy due to the patient requiring the following : This patient requires a multidisciplinary approach in view of her multiple medical problems including acute anemia, autoimmune hepatitis with chronic liver disease affecting choice of medication for pain management, history of atrial fibrillation on warfarin with coagulopathy and low platelets. She requires 24 rehabilitation nursing monitoring and management of her pain, monitoring of evidence of further blood loss/anemia and monitoring of her cardiac status in view of the atrial fibrillation which is paroxysmal. .
[2017-04-20] MEDS ORDERED: FALL RISK - PHARMACY CONSULT XX ONE (16:40)
[2017-04-20] MEDS: PANTOPRAZOLE 20 MG TABLET PO SCH (18:15)
[2017-04-20] MEDS ORDERED: Bisacodyl EC TAB 5 MG TABLET PO PRN (20:31)
[2017-04-20] MEDS: AMLODIPINE 10 MG TABLET PO SCH (20:38)
[2017-04-20] MEDS: SOTALOL 80 MG TABLET PO SCH (20:39)
[2017-04-21] MEDS: Oxycodone *IR* 5 MG TABLET PO PRN ×2 (00:46→10:12)
[2017-04-21] MEDS: ONDANSETRON ODT 4 MG TABLET PO PRN ×2 (00:46→10:12)
[2017-04-21] MEDS: SALINE FLUSH 10ml SYRINGE IV PRN ×4 (01:17→15:48)
[2017-04-21] MEDS: SOTALOL 120 MG TABLET PO SCH ×2 (05:34→07:10)
[2017-04-21] MEDS: PANTOPRAZOLE 20 MG TABLET PO SCH ×2 (05:34→17:45)
[2017-04-21] MEDS: SUCRALFATE 1 GM TABLET PO SCH ×4 (05:34→20:18)
[2017-04-21] MEDS: TRAMADOL 50 MG TABLET PO PRN (05:35)
[2017-04-21] MEDS: POLYETHYL GLYCOL 3350 17gm PACKET PO SCH (09:04)
[2017-04-21] MEDS: SENNA + DOCUSATE TABLET PO SCH (09:05)
[2017-04-21] MEDS: MULTI-VITAMIN + MINERAL TABLET PO SCH (09:05)
[2017-04-21] MEDS: azaTHIOprine 50 MG TABLET PO SCH (09:05)
[2017-04-21] MEDS: HYDRALAZINE 10 MG TABLET PO SCH ×2 (09:05→18:28)
[2017-04-21] MEDS: CALCIUM 500 + VIT D 200 TABLET PO SCH (09:05)
[2017-04-21] MEDS: LOSARTAN 50 MG TABLET PO SCH ×2 (09:05→20:17)
[2017-04-21] MEDS: LACTULOSE 20 GM/30 ML ORAL LIQUID PO SCH (09:06)
--- NOTE | 2017-04-21 11:02 | IRU Progress Note ---
- Subjective/Serverity of Illness Date: 04/26/17 Fernanda was evaluated on inpatient rehabilitation. She is cooperative with therapy. Continues to have difficulty with right humerus pain as well as difficulty with maneuvering with the sling. She is able to ambulate. She is improving with therapy. I asked her if she thought she was stable to go home. She is not certain. With regard to pain management, she has oxycodone IR available. She used a total of 15 mg yesterday. She is not using the indomethacin at this time. With regard to therapy, assessment are completed but daily notes are pending at this time. I have discussed with therapy and they indicate she is improving. Update on medical issues we are actively monitoring and managing as follows: 1. Acute proximal right humerus fracture with pain and uncontrolled nausea. Continues to complain of nausea. Did not eat breakfast because of upset stomach. However denies abdominal pain. She does have pain medication available but is not utilizing it fully at this time. Appears to be rather stoic. 2. Acute anemia in the setting of thrombocytopenia and use of warfarin. Repeat hemoglobin down slightly from 9 g to 8.4 g percent. No evidence of obvious blood loss at this time. 3. Autoimmune hepatitis with cirrhosis, thrombocytopenia and leukopenia with elevated INR (on warfarin). Warfarin is currently being held per recommendation of consultants. She is on aspirin. 4. Hypertension: Blood pressure is been variable. Currently down to 123 systolic. Has been up to 167 systolic. She remains on losartan 50 mg twice daily , amlodipine, hydralazine and hydrochlorothiazide. 5. Paroxysmal atrial fibrillation. At the present time she sounds as though she is in a regular rhythm. Exam Vital Signs: Temperature 98.0 F 04/21/17 08:00 Pulse Rate 62 04/21/17 08:00 Respiratory Rate 16 04/21/17 08:00 Blood Pressure 123/63 04/21/17 08:00 Pulse Oximetry 94 04/21/17 08:00 Height/Weight/BMI: Height 1.6 m Weight 82.1 kg - Constitutional Present: mild distress (nausea and pain.), well nourished, well developed, average body habitus, cooperative - Routine HEENT Exam Head: Present: normocephalic Eye: Present: EOMI, PERRL ENT: Present: mucous membranes moist - Routine Neck Exam Present: supple, full ROM - Routine Respiratory Exam Present: CTA bilaterally. Absent: respiratory distress, rhonchi, wheezes, crackles - Routine Cardiovascular Exam Present: RRR, S1, S2, murmur (has prominent systolic murmurs. I do not hear diastolic murmur at this time. Her rhythm sounds regular.) - Routine Abdominal Exam Present: soft, normoactive bowel sounds, non distended. Absent: tenderness ( because of her nausea, I particularly evaluated her abdomen and there is no tenderness.) - Routine Extremities Exam Present: no edema, normal capillary refill - Routine Back/Spine/Pelvis Exam Back/Spine: Present: full ROM - Routine Skin Exam Present: dry, warm - Routine Neurological Exam Present: alert, oriented X3, CN II-XII intact - Routine Psychiatric Exam Present: normal affect, cooperative, depressed, anxious Results IRU - Labs Labs: Reviewed laboratory as well as other providers notes and vital signs. IRU A/P (1) Closed fracture of right proximal humerus Qualifiers: Encounter type: initial encounter Fracture alignment: displaced Status: Acute Continues to have difficulty with dressing etc. Pain management is difficult. She is tending not to use pain medications. Indeed these may be a factor with regard to her nausea. She does have oxycodone IR available but is not using it fully. Also has indomethacin available but is not using it. (2) Nausea Status: Acute Continues to be an issue. Had a previous EGD but not recently. No abdominal pain and no tenderness is noted. (3) Pancytopenia Status: Chronic Platelet count is stable at 95,000. Hemoglobin down a bit. (4) Paroxysmal atrial fibrillation Status: Chronic (5) Autoimmune liver disease Status: Chronic DVT Prophylaxis: SCD's Resuscitation Status: Full Code - Course Hospital Course: Scot Bartholomew MD: 04/21/17 11:05 Continues to struggle with nausea and anorexia. Has pain but not fully utilizing pain medication available. Blood pressures have been up a bit but are improved. - Interventions to Obtain Goals PT Treatment Plan: Balance/Proprioception, Functional Activities, Gait Training , Patient/Family Education, Therapeutic Exercise OT Treatment Plan: ADL (Basic Care), Balance Training, IADL, Pt./Family Education, Ther. Exercise for ADL Goals Progress/Modifications: Time spent with patient and on floor reviewing data and documentin min Barriers to dismissal: Pain, endurance, nausea Medical decision-making: Fernanda has a number of medical issues we are monitoring. She does have a slightly dropping hemoglobin down to 8.4 g percent from 9 g percent. She received a blood transfusion while on observation status. She does not have evidence of overt bleeding however. She continues to struggle with pain management and nausea. Was anorectic for breakfast this morning but apparently did not vomit. She is making slow progress with therapy per report verbally. Team meeting this noon for multidisciplinary approach. Please note that the patient's individual plan of care was developed and documented today, requiring review of therapy notes, medical conditions and anticipated functional recovery. This required additional medical decision making with regard to interaction of the patient's medical issues with the anticipated functional recovery. Please see separate document.
--- NOTE | 2017-04-21 11:10 | IRU Plan of Care ---
[facility] Overall Plan of Care - Date Date: 04/21/17 - Patient Impairments (1) Closed fracture of right proximal humerus Qualifiers: Encounter type: initial encounter Fracture alignment: displaced Code(s): S42.201A - Unspecified fracture of upper end of right humerus, initial encounter for closed fracture Status: Acute Classification: Present on IRF Admission, IRF Tx That Should Address Diagnosis, Diagnosis Requiring Medical Follow Up (2) Pancytopenia Code(s): D61.818 - Other pancytopenia Status: Chronic Classification: Present on IRF Admission, IRF Tx That Should Address Diagnosis, Diagnosis Requiring Medical Follow Up (3) Autoimmune liver disease Code(s): K76.89 - Other specified diseases of liver Status: Chronic Classification: Present on IRF Admission, IRF Tx That Should Address Diagnosis, Diagnosis Requiring Medical Follow Up (4) Hypertension Qualifiers: Hypertension type: essential hypertension Qualified Code(s): I10 - Essential (primary) hypertension Code(s): I10 - Essential (primary) hypertension Status: Chronic (5) Paroxysmal atrial fibrillation Code(s): I48.0 - Paroxysmal atrial fibrillation Status: Chronic Classification: Present on IRF Admission, IRF Tx That Should Address Diagnosis, Diagnosis Requiring Medical Follow Up - Relevant Changes Relevant Changes: No Reviewed: I have reviewed the patient's information and concur with the finding and results of the pre-admission screen. Certification: I certify the patient for rehabilitation. - Medical Prognosis Medical Prognosis: Good Vital Signs: Last Vital Signs Temp 98.0 F 04/21/17 08:00 Pulse 62 04/21/17 08:00 Resp 16 04/21/17 08:00 BP 123/63 04/21/17 08:00 Pulse Ox 94 04/21/17 08:00 - Anticipated Interventions Anticipated Interventions: The patient requires inpatient IRF care for PT and OT for residuals remaining from humerous fracture resulting in muscular weakness and strength deficits. An individualized overall plan of care has been developed after careful review of the patient's preadmission screening, post admission physician evaluation and assessments of all therapy disciplines and/or other pertinent clinicians involved in treating the patient. This indicates medical necessity and rehabilitation necessity have been established through a thorough review of all available medical information. ROM Deficit: Right Upper Extremity Strength Deficits: Right Upper Extremity - Current Functional Status Failed Alternative Therapy: Yes Patient Requires: The patient requires oversight by rehabilitation physician to manage their rehabilitation treatment plan and multidisciplinary approach to care that can only be provided in an IRF and requires a multidisciplinary approach to care, provided by professional PTs, OTs, STs, rehabilitation nurses, and may require STs, dieticians, and RTS. This is not available in lesser levels of care. Physical Therapy Minutes: 90 Occupational Therapy Minutes: 90 Therapy: The patient is to receive therapy at least 5 days a week. - Anticipated LOS/Outcomes Anticipated Functional Outcome: Expected functional improvements include: -- Modified independant to independant ambulation with or without assistive device -- Modified independant to independant ADL's with or without assistive device -- Return to pre-morbid level of mobility -- Maximize level of mobility and ADL's to decrease burden on any caregiver involved with this patient's care It is anticipated that Fernanda will be able to return to her home and function independently with home health assistance. Anticipated Length of Stay (days): 5 Anticipated DC Destination: Home, Self Care, Home Health Service Home Safety Plan: The patient will be provided with the development of a Home Safety Plan for return to a home or home-like environment and and to ensure safety post discharge. - Plan to Avoid Complications Barriers to Attaining Goals: Weakness, Endurance, Pain Control Plan to Avoid Complications: The patient cannot receive this care in a lesser intensive setting such as [facility] or Outpatient Therapy due to the patient requiring the following : Patient requires close monitoring of her hemoglobin in view of the pancytopenia and reduction in hemoglobin to 8.4 g percent. She requires 24 hour rehabilitation nursing monitoring and treatment of her pain. She requires a multidisciplinary approach with PT and OT with medical supervision because of these medical conditions including uncontrolled nausea and pain .
--- NOTE | 2017-04-21 13:21 | IRU Team Meeting ---
IRU Team Meeting - Nursing Bladder Management Level of Assist: Independent Bladder Frequency of Accidents: No accidents Bowel Assistive Devices Utilized:: Medication Bowel Management Level of Assist: Modified Independent Vital Signs: Vital Signs - 24 hr 04/20/17 15:52 04/20/17 16:00 04/20/17 20:14 Temperature 97.8 F 98.2 F Pulse Rate 64 69 64 Respiratory Rate 16 16 20 Blood Pressure 146/62 H 141/67 H Pulse Oximetry 92 98 94 04/20/17 20:39 04/21/17 00:09 04/21/17 05:34 Temperature Pulse Rate 65 63 64 Respiratory Rate Blood Pressure Pulse Oximetry 04/21/17 08:00 Temperature 98.0 F Pulse Rate 62 Respiratory Rate 16 Blood Pressure 123/63 Pulse Oximetry 94 Current Medications: Alprazolam (Xanax) 0.25 mg PO TID PRN PRN Reason: anxiety Amlodipine Besylate (Norvasc) 10 mg PO HS [facility] Last Admin: 04/20/17 20:38 Dose: 10 mg Azathioprine (Imuran) 150 mg PO DAILY [facility] Last Admin: 04/21/17 09:05 Dose: 150 mg Calcium/Vitamin D (Os Butch-D 500) 1 tab PO DAILY [facility] Last Admin: 04/21/17 09:05 Dose: 1 tab Hydralazine HCl (Apresoline) 10 mg PO BIDBS [facility] Last Admin: 04/21/17 09:05 Dose: 10 mg Hydrochlorothiazide (Microzide) 12.5 mg PO WB [facility] Last Admin: 04/21/17 09:05 Dose: 12.5 mg Indomethacin (Indocin) 25 mg PO TIDWM PRN PRN Reason: arthritic pain Lactulose (Lactulose) 10 gm PO DAILY [facility] Last Admin: 04/21/17 09:06 Dose: 10 gm Losartan Potassium (Cozaar) 50 mg PO BID [facility] Last Admin: 04/21/17 09:05 Dose: 50 mg Magnesium Hydroxide (Mom) 30 ml PO DAILY PRN PRN Reason: Constipation Multivitamins/Minerals (Therapeutic - M) 1 tab PO DAILY [facility] Last Admin: 04/21/17 09:05 Dose: 1 tab Ondansetron HCl (Zofran Po) 4 mg PO Q6HR PRN PRN Reason: n/v Last Admin: 04/21/17 10:12 Dose: 4 mg Oxycodone HCl (Roxicodone *Ir*) 5 - 10 mg PO Q6H PRN PRN Reason: Pain Last Admin: 04/21/17 10:12 Dose: 10 mg Pantoprazole Sodium (Protonix) 20 mg PO ACBID [facility] Last Admin: 04/21/17 05:34 Dose: 20 mg Polyethylene Glycol (Miralax) 17 gm PO DAILY [facility] Last Admin: 04/21/17 09:04 Dose: 17 gm Senna/Docusate Sodium (Senna Plus Tablet) 1 tab PO DAILY [facility] Last Admin: 04/21/17 09:05 Dose: 1 tab Sodium Chloride (Iv Flush) 10 ml IV PRN PRN PRN Reason: Flushing Last Admin: 04/21/17 10:13 Dose: 10 ml Sotalol HCl (Betapace) 80 mg PO HS [facility] Last Admin: 04/20/17 20:39 Dose: 80 mg Sotalol HCl (Betapace) 120 mg PO 0700 [facility] Last Admin: 04/21/17 07:10 Dose: Not Given Sucralfate (Carafate) 1 gm PO ACHS [facility] Last Admin: 04/21/17 12:18 Dose: 1 gm Tramadol HCl (Ultram) 50 mg PO Q6H PRN PRN Reason: Pain Last Admin: 04/21/17 05:35 Dose: 50 mg Current Medical Issues: Pancytopenia, weight gain, anorexia, constipation Comments: I certify that I personally led the interdisciplinary team meeting and agree with comments, barriers and goals indicated. Team meeting was held in the patient's room with the patient and the following family members present: two daughters Ms. Calderon continues to struggle with constipation as well as anorexia/ nausea. She is taking oxycodone as needed. She had to have 2 of them today. Denies any chest pain. Does have weakness and easy fatigability. Hemoglobin down from 9.0-8.4 g percent. Weight is up since admission from 70 kg up to 82 kg. - Physical Therapy Bed, Chair, Wheelchair Transfer Assist: Independent Ambulation Ability: Stand By Assist/Supervision Ambulation Distance: 400 Stair Climbing Ability: Modified Independent Number of Steps Climbed: 12 Car Transfer Ability: Modified Independent Comments: Patient has progressed well with knowledge and understanding regarding safety. She is able to ambulate 400 feet with standby assist. - Occupational Therapy Eating Ability: Independent Grooming Ability: Stand By Assist/Supervision Bathing Ability: Stand By Assist/Supervision Upper Body Dressing Ability: Stand By Assist/Supervision Lower Body Dressing Ability: Stand By Assist/Supervision Tub Transfer Assist: Patient Refuses Toileting Assist: Modified Independent Toilet Transfer Assist: Modified Independent Comments: Patient is very cooperative with occupational therapy. She has progressed nicely. Continues to have several ADLs and IADL goals to meet. Was assessed with Tinetti balance test achieving a score of approximately 18 out of 28. - Goals Physical Therapy Goals: 04/21/17 Goals: 1.) Tinetti Score of 24/28. 2.) Discharge Planning Occupational Therapy Goals: OT goals 04/21/17: 1.) Simple meal prep w/ mod I. 2.) Donning/doffing sling independently. - Barriers to Discharge Barriers to Attaining Goals: Balance, Pain Control, Other (fatigue) - Care Plan Anticipated Length of Stay (days): 4 Anticipated DC Destination: Home, Self Care, Home Health Service I have led this team conference and agree with the plan. Interventions/Goals: Patient has progressed nicely. We will discuss with the hospitalist service the issue of her weight gain as well as work on constipation. Anticipate safe transition to home early next week.
[2017-04-21] MEDS ORDERED: FLEET PHOSPHO - SODA ENEMA 133ml PR PRN (13:39)
[2017-04-21] MEDS: FUROSEMIDE 20 MG TABLET PO SCH (15:45)
[2017-04-21] MEDS: KETOROLAC 15 MG/ML INJECTION IVP SCH ×2 (15:46→20:18)
[2017-04-21] MEDS ORDERED: LACTULOSE 20 GM/30 ML ORAL LIQUID PO ONE (16:05)
[2017-04-21] MEDS: BISACODYL 10 MG SUPPOSITORY RECTALLY SCH (18:27)
[2017-04-21] MEDS: SOTALOL 80 MG TABLET PO SCH (20:17)
[2017-04-21] MEDS: AMLODIPINE 10 MG TABLET PO SCH (20:18)
[2017-04-22] MEDS: KETOROLAC 15 MG/ML INJECTION IVP SCH ×4 (02:58→21:12)
[2017-04-22] MEDS: SUCRALFATE 1 GM TABLET PO SCH ×5 (04:50→21:21)
[2017-04-22] MEDS: PANTOPRAZOLE 20 MG TABLET PO SCH ×3 (04:50→16:44)
[2017-04-22] MEDS: azaTHIOprine 50 MG TABLET PO SCH (09:49)
[2017-04-22] MEDS: MULTI-VITAMIN + MINERAL TABLET PO SCH (09:49)
[2017-04-22] MEDS: HYDRALAZINE 10 MG TABLET PO SCH ×2 (09:50→16:44)
[2017-04-22] MEDS: CALCIUM 500 + VIT D 200 TABLET PO SCH (09:50)
[2017-04-22] MEDS: LOSARTAN 50 MG TABLET PO SCH ×2 (09:50→21:11)
[2017-04-22] MEDS: LACTULOSE 20 GM/30 ML ORAL LIQUID PO SCH ×2 (09:51→11:45)
[2017-04-22] MEDS: FUROSEMIDE 20 MG TABLET PO SCH (09:54)
[2017-04-22] MEDS: SOTALOL 120 MG TABLET PO SCH (09:54)
[2017-04-22] MEDS: BISACODYL 10 MG SUPPOSITORY RECTALLY SCH (09:55)
[2017-04-22] MEDS: POLYETHYL GLYCOL 3350 17gm PACKET PO SCH (09:56)
[2017-04-22] MEDS: SENNA + DOCUSATE TABLET PO SCH (09:56)
--- NOTE | 2017-04-22 10:59 | Progress Note ---
- Date 04/22/17 Subjective: Fernanda is seen today in follow up. She reports feeling better today- does endorse some increase in urination since adjustment in her medications. She does have a 'heart murmur', follows with Dr. Chavez. States she has an autoimmune liver disease, but is unclear of specific dx. Denies any SOA, chest pain, etc. Is up with assist and doing fairly well overall. No acute concerns. Chart reviewed for collateral information. Objective Vital signs: Temperature 96.4 F L 04/22/17 08:00 Pulse Rate 66 04/22/17 09:54 Respiratory Rate 16 04/22/17 08:00 Blood Pressure 114/58 04/22/17 08:00 Pulse Oximetry 94 04/22/17 08:00 Height/Weight/BMI: Height 1.6 m Weight 73.8 kg - Constitutional Present: no acute distress, average body habitus, cooperative - Routine HEENT Exam Head: Present: abrasion (Bruise right mandible) Eye: Present: EOMI, PERRL. Absent: conjunctival icterus ENT: Present: mucous membranes moist - Routine Respiratory Exam Present: CTA bilaterally. Absent: rales, rhonchi, wheezes, crackles - Routine Cardiovascular Exam Present: RRR, S1, S2, murmur (+SM, aortic) - Routine Abdominal Exam Present: soft, non distended, non tender - Routine Extremities Exam Present: no edema, pulses intact, normal capillary refill Comments: Sling right arm. - Routine Musculoskeletal Exam Musculoskeletal: Present: no clubbing or cyanosis - Routine Skin Exam Present: intact, dry, warm, ecchymosis (Right jaw) - Routine Neurological Exam Present: alert, oriented X3 - Routine Psychiatric Exam Present: normal affect, normal thought process, cooperative, good insight Results - Labs CBC & Chem 7: 04/23/17 04:18 04/23/17 04:18 Assessment and Plan (1) Closed fracture of right proximal humerus Current visit: No Status: Acute (2) Pancytopenia Current visit: Yes Status: Chronic Assessment and Plan: Assessment Right proximal humerus fracture - 04/15/17. Pancytopenia, new diagnosis. Mechanical fall vs. syncope. Anemia, acute on chronic. Atrial fib/flutter, transient, with pacemaker placement. HTN (hypertension). High cholesterol. Aortic and Mitral valve stenosis. Osteoporosis. Osteoarthritis. Autoimmune liver disease stage IV. Hx of ulcer. Diverticulosis. Esophageal varices, grade 1. Chronic leukopenia. Plan - 04/22/17 Patient is feeling well. Continue PT/OT per rehab team. BP is improved- she denies any acute pain. She diuresed well. Is down almost 10 kg. Will DC lasix. Increase HCTZ to home dose on 25mg for now. Potassium is stable. Continue to hold Warfarin due to recent need for transfusion. H/H continues to trend slowly down- when stable, start ASA 325mg daily per DR. Chavez. She has been started on BID PPI as well as Carafate per GI recommendations. Will repeat labs in AM for stability. Ammonia is normal. No excessive sedation. Addendum by Dr. Espinoza: Seen and examined patient on same day as the above note. Agree with subjective note, physical exam, assessment and plan. Comprehensive physical findings correlate to the above note. Documented on Dragon speech to text. Efforts to correct speech recognition errors performed, but variation may exist DVT Prophylaxis: other GI Prophylaxis: Protonix Resuscitation Status: Full Code - Physician Narrative Narrative: Date: 04/22/17 Time: 1055 Hospital Course Summary Disclaimer: The visit summary below is not to be considered part of the above Progress Note. Hospital Course: Assessment Right proximal humerus fracture - 04/15/17. Pancytopenia, new diagnosis. Mechanical fall vs. syncope. Anemia, acute on chronic. Atrial fib/flutter, transient, with pacemaker placement. HTN (hypertension). High cholesterol. Aortic and Mitral valve stenosis. Osteoporosis. Osteoarthritis. Autoimmune liver disease stage IV. Hx of ulcer. Diverticulosis. Esophageal varices, grade 1. Chronic leukopenia. Plan - 04/20/17 Admit to IRU for intensive rehabilitation and pain control per Dr. Bartholomew. Provide safe and supportive environment. Continue orthopedic care for proximal right humerus fracture per Dr. Pepper. Sling in place and N/V intact. Patient previously had nausea with pain medications. Nausea has improved, though oral intake remains poor. Continue to encourage oral intake. Zofran as needed for nausea. Recent severe symptomatic anemia with hemoglobin as low as 6.5 on 04/18/17. Patient received a total of 2 units PRBC (04/18/17, 04/19/17) with improvement. Continues to have some lightheadedness with standing. Monitor closely as significant fall risk. Current hemoglobin stable at 9.0. Will continue to monitor closely. Recent fecal Hemoccult was negative. Monitor closely for signs of bleeding. B12, folate and iron studies were normal. Continue home vitamins. Prior fecal Hemoccult negative. Pancytopenia noted. Patient has previously seen Dr. Jeffers in March 2016. Will consult Dr. Jeffers for further evaluation and expertise. Continue Protonix and Carafate for GI protection and possible GI bleed. Home Prilosec discontinued with initation of Protonix per Dr. Hickey's recommendation. After discussion with Dr. Chavez (cardiology), patient's Coumadin was discontinued on 04/19/17. INR trending down at 2.78. He recommended initiating ASA 325mg daily once patient's hemoglobin is stable and follow up in his clinic within 1 week following discharge from IRU. Continue to monitor closely on telemetry given history of a-fib. Currently in sinus arrhythmia, rate controlled. Will continue to monitor blood counts. SCDs for DVT prophylaxis. Family expressed concern about elevated blood pressure. Review blood pressure trends and medications extensively with Dr. Espinoza. Elevated blood pressure most likely secondary to pain as seen with increase in blood pressure specifically with standing. Will hold off on additional treatment at this time and continue to monitor closely. Will discuss additional pain control measure with Dr. Bartholomew. Discussed patient care and treatment plan extensively with patient's DPOA/ daughter, Amy. She expressed concerns about the patient's blood pressure elevation which appears to be directly linked to the patient's pain. Explained that we will continue to monitor and work on pain control. Amy is ok with decision to move patient to IRU today. All questions were answered as best as possible and family expressed gratitude and is agreeable with treatment plan. Upon discharge, patient's care will be returned to her PCP, Dr. Viera. Addendum: Seen and examined patient on same day as the above note. Agree with consultation note, physical, assessment and plan by nurse practitioner Brie Villaseñor. Comprehensive physical findings correlate to the above note. I've discussed the patient's blood pressure with the patient as well as the daughter. I do believe that the issue with her blood pressure lability is secondary to pain. Mrs. Calderon is remaining rather stoic, and is not using her tramadol significantly. She has not requested her indomethacin so I'm scheduling a very short course of half dosed Toradol for the next few days so that she might have some relief. Documented on Dragon speech to text. Efforts to correct speech recognition errors performed, but variation may exist Plan - 04/22/17 Patient is feeling well. Continue PT/OT per rehab team. BP is improved- she denies any acute pain. She diuresed well. Is down almost 10 kg. Will DC lasix. Increase HCTZ to home dose on 25mg for now. Potassium is stable. Continue to hold Warfarin due to recent need for transfusion. H/H continues to trend slowly down- when stable, start ASA 325mg daily per DR. Chavez. She has been started on BID PPI as well as Carafate per GI recommendations. Will repeat labs in AM for stability. Ammonia is normal. No excessive sedation.
[2017-04-22] MEDS: TRAMADOL 50 MG TABLET PO PRN (15:13)
[2017-04-22] MEDS: SALINE FLUSH 10ml SYRINGE IV PRN (16:44)
[2017-04-22] MEDS: AMLODIPINE 10 MG TABLET PO SCH (21:11)
[2017-04-22] MEDS: SOTALOL 80 MG TABLET PO SCH (21:30)
[2017-04-23] MEDS: KETOROLAC 15 MG/ML INJECTION IVP SCH ×5 (01:57→21:24)
[2017-04-23] MEDS: SUCRALFATE 1 GM TABLET PO SCH ×4 (06:34→21:25)
[2017-04-23] MEDS: SOTALOL 120 MG TABLET PO SCH (06:35)
[2017-04-23] MEDS: LOSARTAN 50 MG TABLET PO SCH ×2 (08:47→21:25)
[2017-04-23] MEDS: HYDRALAZINE 10 MG TABLET PO SCH ×2 (08:47→17:54)
[2017-04-23] MEDS: CALCIUM 500 + VIT D 200 TABLET PO SCH (08:47)
[2017-04-23] MEDS: PANTOPRAZOLE 20 MG TABLET PO SCH ×2 (08:47→17:54)
[2017-04-23] MEDS: azaTHIOprine 50 MG TABLET PO SCH (08:47)
[2017-04-23] MEDS: LACTULOSE 20 GM/30 ML ORAL LIQUID PO SCH (08:48)
[2017-04-23] MEDS: SENNA + DOCUSATE TABLET PO SCH (08:50)
[2017-04-23] MEDS: POLYETHYL GLYCOL 3350 17gm PACKET PO SCH (08:50)
[2017-04-23] MEDS: MULTI-VITAMIN + MINERAL TABLET PO SCH (08:50)
[2017-04-23] MEDS: BISACODYL 10 MG SUPPOSITORY RECTALLY SCH (10:03)
[2017-04-23] MEDS: SALINE FLUSH 10ml SYRINGE IV PRN (10:03)
[2017-04-23] MEDS: ONDANSETRON ODT 4 MG TABLET PO PRN (10:10)
[2017-04-23] MEDS: SOTALOL 80 MG TABLET PO SCH (21:23)
[2017-04-23] MEDS: AMLODIPINE 10 MG TABLET PO SCH (21:24)
[2017-04-24] MEDS: ALPRAZolam 0.25 MG TABLET PO PRN (01:42)
[2017-04-24] MEDS: KETOROLAC 15 MG/ML INJECTION IVP SCH ×2 (03:00→10:00)
[2017-04-24] MEDS: SUCRALFATE 1 GM TABLET PO SCH ×5 (05:11→20:10)
[2017-04-24] MEDS: PANTOPRAZOLE 20 MG TABLET PO SCH ×3 (05:11→17:39)
[2017-04-24] MEDS: POLYETHYL GLYCOL 3350 17gm PACKET PO SCH (08:46)
[2017-04-24] MEDS: HYDRALAZINE 10 MG TABLET PO SCH ×2 (08:46→17:39)
[2017-04-24] MEDS: BISACODYL 10 MG SUPPOSITORY RECTALLY SCH (08:46)
[2017-04-24] MEDS: CALCIUM 500 + VIT D 200 TABLET PO SCH (08:46)
[2017-04-24] MEDS: azaTHIOprine 50 MG TABLET PO SCH (08:46)
[2017-04-24] MEDS: LOSARTAN 50 MG TABLET PO SCH ×2 (08:46→20:09)
[2017-04-24] MEDS: LACTULOSE 20 GM/30 ML ORAL LIQUID PO SCH (08:47)
[2017-04-24] MEDS: SENNA + DOCUSATE TABLET PO SCH (08:47)
[2017-04-24] MEDS: MULTI-VITAMIN + MINERAL TABLET PO SCH (08:47)
[2017-04-24] MEDS: SOTALOL 120 MG TABLET PO SCH (10:01)
[2017-04-24 10:16] VITALS: BMI 28.2
--- NOTE | 2017-04-24 11:47 | IRU Progress Note ---
- Subjective/Serverity of Illness Date: 04/24/17 Fernanda continues to improve. She says that her pain is much improved. She has been receiving Toradol IV every 6 hours. She has not had oxycodone for several days. Perhaps as a result, her appetite is good and she has had no further nausea nor vomiting. Pain is adequately controlled. She has had no active bleeding. Repeat hemoglobin is stable to improved. Leukopenia remains. Platelet count is slightly better but still low at 108,000. From a therapy standpoint she has improved dramatically. She is approaching stability to go home. Update on medical issues we are actively monitoring and managing as follows: 1. Acute proximal right humerus fracture with pain and uncontrolled nausea. Nausea is resolved perhaps with lack of use of oxycodone. Pain is adequately controlled. 2. Acute anemia in the setting of thrombocytopenia and use of warfarin. Remains off warfarin. Platelets improved but still low at 108,000. No active bleeding identified. 3. Autoimmune hepatitis with cirrhosis, thrombocytopenia and leukopenia with elevated INR (on warfarin). INR remains elevated at 1.75. Ammonia level unremarkable. 4. Hypertension: Blood pressures have been adequately controlled. She is on several agents. 5. Paroxysmal atrial fibrillation. Continues to sound as though she is in a regular rhythm at the present time. No history of palpitations per her report. Exam Vital Signs: Temperature 98.0 F 04/23/17 23:47 Pulse Rate 89 04/24/17 10:09 Respiratory Rate 16 04/24/17 10:09 Blood Pressure 131/77 04/24/17 10:09 Pulse Oximetry 99 04/24/17 10:09 Height/Weight/BMI: Height 1.6 m Weight 72.3 kg Body Mass Index 28.2 - Constitutional Present: no acute distress, well nourished, well developed - Routine HEENT Exam Head: Present: normocephalic Eye: Present: EOMI ENT: Present: mucous membranes moist - Routine Neck Exam Present: supple - Routine Respiratory Exam Present: CTA bilaterally. Absent: respiratory distress, rhonchi, wheezes - Routine Cardiovascular Exam Present: RRR, S1, S2, murmur (murmurs as previously identified. Unchanged. Still sounds like she is in a regular mechanism.) - Routine Abdominal Exam Present: soft, normoactive bowel sounds, non distended. Absent: tenderness - Routine Extremities Exam Present: no edema, normal capillary refill - Routine Back/Spine/Pelvis Exam Back/Spine: Present: full ROM - Routine Skin Exam Present: dry, warm - Routine Neurological Exam Present: alert, oriented X3, CN II-XII intact - Routine Psychiatric Exam Present: normal affect Results IRU - Labs Labs: Have reviewed labs and other providers notes as well as other chart information. IRU A/P (1) Closed fracture of right proximal humerus Qualifiers: Encounter type: initial encounter Fracture alignment: displaced Current visit: No Status: Acute Pain adequately controlled with nonsteroidals. Has not received oxycodone for several days. (2) Pancytopenia Current visit: Yes Status: Chronic Platelets better. White count unchanged. Hemoglobin stable. DVT Prophylaxis: other Resuscitation Status: Full Code - Course Hospital Course: Scot Bartholomew MD: 04/21/17 11:05 Continues to struggle with nausea and anorexia. Has pain but not fully utilizing pain medication available. Blood pressures have been up a bit but are improved. 04/24/17 11:48 Has made good progress with therapy. Receiving intravenous Toradol. Nausea has resolved perhaps because she is no longer taking oxycodone. She would like to go home soon and we will plan for this tomorrow. - Interventions to Obtain Goals PT Treatment Plan: Balance/Proprioception, Functional Activities, Gait Training , Patient/Family Education, Therapeutic Exercise OT Treatment Plan: ADL (Basic Care), Balance Training, IADL, Pt./Family Education, Ther. Exercise for ADL Goals Progress/Modifications: Time spent with patient and on floor reviewing data and documentin min Barriers to dismissal: Requirement for intravenous Toradol, PICC line, endurance Medical decision-making: Considered sending her home today. However we will stop the Toradol today and see how she does with pain management. She seems to be medically stable. Heart sounds regular mechanism. Heart murmurs are unchanged. She is eating better.
[2017-04-24] MEDS ORDERED: ACETAMINOPHEN 325 MG TABLET PO SCH (13:00)
[2017-04-24] MEDS: TRAMADOL 50 MG TABLET PO PRN (20:10)
[2017-04-24] MEDS: AMLODIPINE 10 MG TABLET PO SCH (20:10)
[2017-04-24] MEDS: SOTALOL 80 MG TABLET PO SCH (20:12)
[2017-04-25] MEDS: ALPRAZolam 0.25 MG TABLET PO PRN (01:34)
[2017-04-25] MEDS: TRAMADOL 50 MG TABLET PO PRN (01:55)
[2017-04-25] MEDS: PANTOPRAZOLE 20 MG TABLET PO SCH ×2 (06:29→16:35)
[2017-04-25] MEDS: SUCRALFATE 1 GM TABLET PO SCH ×3 (06:29→16:35)
[2017-04-25] MEDS: SOTALOL 120 MG TABLET PO SCH (07:41)
[2017-04-25] MEDS: azaTHIOprine 50 MG TABLET PO SCH (08:32)
[2017-04-25] MEDS: HYDRALAZINE 10 MG TABLET PO SCH ×2 (08:32→16:35)
[2017-04-25] MEDS: CALCIUM 500 + VIT D 200 TABLET PO SCH (08:33)
[2017-04-25] MEDS: MULTI-VITAMIN + MINERAL TABLET PO SCH (08:33)
[2017-04-25] MEDS: SENNA + DOCUSATE TABLET PO SCH (08:33)
[2017-04-25] MEDS: LOSARTAN 50 MG TABLET PO SCH (08:35)
[2017-04-25] MEDS: BISACODYL 10 MG SUPPOSITORY RECTALLY SCH (08:36)
[2017-04-25] MEDS: LACTULOSE 20 GM/30 ML ORAL LIQUID PO SCH (09:01)
--- NOTE | 2017-04-25 10:02 | IRU Progress Note ---
- Subjective/Serverity of Illness Date: 04/26/17 Ms. Calderon has done well on rehabilitation. She denies any evidence of active bleeding. Denies shortness of breath, cough, sputum nor palpitations. She has had no chest discomfort. Her energy level is good. She is eating much better. She states that use of ice last night on the arm was very beneficial in pain relief. Has taken tramadol without side effects. (We are limited with regard to pain management because of need to avoid acetaminophen and the fact that oxycodone may well have exacerbated her nausea and vomiting. She is tolerating tramadol and we will give her a prescription for that upon dismissal.) Brief therapy update: She is meant goals regarding occupational therapy. She remains independent for transfers for bed/chair/wheelchair with physical therapy and is able to ambulate over 1000 feet independently. Update on medical issues we are actively monitoring and managing as follows: 1. Acute proximal right humerus fracture with pain and uncontrolled nausea. Pain is much better and the nausea has resolved. Using ice at night has been of benefit. 2. Acute anemia in the setting of thrombocytopenia and use of warfarin. Last hemoglobin stable on the . Consultation to Dr. Conway is pending. 3. Autoimmune hepatitis with cirrhosis, thrombocytopenia and leukopenia with elevated INR (on warfarin). She seems stable in this regard. INR 1.75 at last check. 4. Hypertension: Blood pressures remain adequately controlled. 5. Paroxysmal atrial fibrillation. Remains in a regular rhythm at present. Exam Vital Signs: Temperature 97.7 F 04/25/17 07:37 Pulse Rate 61 04/25/17 07:41 Respiratory Rate 18 04/25/17 07:37 Blood Pressure 133/66 04/25/17 07:37 Pulse Oximetry 96 04/25/17 07:37 Height/Weight/BMI: Height 1.6 m Weight 71.6 kg Body Mass Index 28.2 - Constitutional Present: no acute distress, well nourished, well developed, average body habitus , cooperative - Routine HEENT Exam Head: Present: normocephalic, atraumatic Eye: Present: EOMI ENT: Present: mucous membranes moist - Routine Neck Exam Present: supple, full ROM - Routine Respiratory Exam Present: CTA bilaterally. Absent: dyspnea, decreased breath sounds, respiratory distress, rhonchi, wheezes, crackles - Routine Cardiovascular Exam Present: RRR (continues to sound as though she is in a regular rhythm and not atrial fibrillation.), S1, S2, murmur (murmurs are unchanged.) - Routine Abdominal Exam Present: soft, normoactive bowel sounds, non distended. Absent: tenderness - Routine Extremities Exam Present: no edema Comments: Right arm in sling. - Routine Skin Exam Present: dry, warm - Routine Neurological Exam Present: alert, oriented X3, CN II-XII intact - Routine Psychiatric Exam Present: normal affect, cooperative, good insight, good judgment IRU A/P (1) Closed fracture of right proximal humerus Qualifiers: Encounter type: initial encounter Fracture alignment: displaced Status: Acute Pain management is somewhat challenging in view of her multiple medicinal intolerances and/or need to avoid acetaminophen. We will utilize local measures in terms of ice as well as the use of tramadol. She has done well with therapy and is stable to be dismissed today. (2) Pancytopenia Status: Chronic Continues to demonstrate pancytopenia although platelets are improved. Consultation to Dr. Jeffers pending. (3) Paroxysmal atrial fibrillation Status: Chronic (4) Hypertension Qualifiers: Hypertension type: essential hypertension Qualified Code(s): I10 - Essential (primary) hypertension Status: Chronic (5) Autoimmune liver disease Status: Chronic DVT Prophylaxis: other Resuscitation Status: Full Code - Course Hospital Course: Scot Bartholomew MD: 04/21/17 11:05 Continues to struggle with nausea and anorexia. Has pain but not fully utilizing pain medication available. Blood pressures have been up a bit but are improved. 04/24/17 11:48 Has made good progress with therapy. Receiving intravenous Toradol. Nausea has resolved perhaps because she is no longer taking oxycodone. She would like to go home soon and we will plan for this tomorrow. 04/25/17 10:03 Continues to do well with therapy. PICC line removed yesterday without incident. She is eating and drinking adequately and having bowel movements. Anticipate safe transfer to home today. - Interventions to Obtain Goals PT Treatment Plan: Balance/Proprioception, Functional Activities, Gait Training , Patient/Family Education, Therapeutic Exercise OT Treatment Plan: ADL (Basic Care), Balance Training, IADL, Pt./Family Education, Ther. Exercise for ADL Goals Progress/Modifications: Time spent with patient and on floor reviewing data and documentin min Barriers to dismissal: Pain, pancytopenia Medical decision-making: Fernanda is quite complex medically. She does have pancytopenia likely related to underlying chronic liver disease second autoimmune hepatitis with cirrhosis. The question of azathioprine contribution is also noted. We do have a consultation pending to Dr. Lou in this regard. She has not had any evidence of active bleeding. In addition, pain management is difficult because we need to avoid acetaminophen. Oxycodone seemed to cause more nausea and vomiting. Unable to take [place] due to the acetaminophen per patient understanding. We will utilize tramadol. She is stable for dismissal later today.
--- NOTE | 2017-04-25 11:32 | Discharge Summary ---
Discharge Information Date of admission: 04/19/17 17:58 Anticipated date of discharge: 04/25/17 Attending Physician: Scot Bartholomew MD Primary care physician: Harrison Viera DO Consults: 04/19/17 21:03 Physician Consult [CONS] Routine Consulting Provider: Deon Cameron Reason For Exam: medical management Ordering Provider has Notified Insulation Foreman: No 04/20/17 09:10 Physician Consult [CONS] Routine Consulting Provider: Calixto Jeffers I Reason For Exam: pancytopenia Ordering Provider has Notified Insulation Foreman: No 04/21/17 13:39 Dietary Consult [CONS] Routine Comment: Reason For Exam: anorexia, risk of poor nutrition - Discharge Diagnosis (1) Closed fracture of right proximal humerus Status: Acute (2) Pancytopenia Status: Chronic (3) Paroxysmal atrial fibrillation Status: Chronic (4) Hypertension Status: Chronic (5) Autoimmune liver disease Status: Chronic 1. Acute proximal right humerus fracture, closed 2. Acute on chronic anemia 3. Autoimmune hepatitis 4. Pancytopenia 5. Benign essential hypertension 6. Paroxysmal atrial fibrillation - Laboratory Labs: 04/23/17 04:18 04/23/17 04:18 History of Present Illness HPI: Ms. Calderon is a very pleasant 76-year-old female who fell at home on 2017. The exact mechanism of the fall is unclear as she does not recall it. She possibly tripped over some mats on the floor falling down some stairs. She was evaluated in the emergency department at [facility] on 04/15/2017. She was noted to have a proximal right humerus fracture. CT head was negative except for potential nasal bone fracture. Subsequent dedicated facial bone CT demonstrated a fracture of the nasal bone although this could have been chronic. She was asymptomatic in that area and denies any pain in the nose. She was treated as an outpatient and given oxycodone. She was placed in a sling and dismissed to her home. She followed up with Dr. Pepper on 04/17/2017. She had intractable nausea and vomiting as well as pain. She was admitted as an outpatient for observation. The patient did have a hemoglobin of 8.4 on April 15, dropping to 7.6 on April 17 and 6.5 on April 18. She did receive a blood transfusion while on observation care. Because of multiple functional deficits related to the arm fracture as well as difficult to control pain and nausea and vomiting as well as history of paroxysmal atrial fibrillation and hypertension the patient was felt to be a good candidate for inpatient rehabilitation where she was admitted on 2017 for a multidisciplinary intensive therapy program including both speech therapy and occupational therapy along with requirement for 24 hour rehabilitation nursing monitoring and treatment of her pain and monitoring for anemia. Hospital Course This is a general summary of the patient's hospital course. For more details refer to the complete medical record. Medically, the patient was monitored with regard to her anemia. Her hemoglobin remained stable with dismissal hemoglobin 8.9 on 04/23/2017. She did have a drop in her platelets to a low of 91,000. Dismissal platelet count was 108,000 on 04/23/2017. Her white count was low, hovering around 2000. She thus had pancytopenia. She does have history of known autoimmune hepatitis. Dr. Conway was consulted during the hospitalization and that consultation is pending at the time of this dictation. Her blood pressures remained stable. Her nausea and vomiting abated. This seemed to correlate with holding the oxycodone. She was switched to intravenous Toradol via a PICC line. This did help her pain significantly. Creatinine remained stable at 0.9 as of 2017. PICC line was removed on 04/24/2017. She was switched to tramadol 50 mg up to 4 times daily when necessary pain. She indicates she is not able to take acetaminophen due to the chronic liver disease. She therefore cannot take [place] which has acetaminophen in it. It is felt the oxycodone likely exacerbated her nausea and vomiting. She was seen by occupational therapy and had the following functional gains noted: Eating was independent upon admission and dismissal. Grooming was performed with standby assistance initially and modified independent functioning subsequently. Bathing ability was initially standby assistance and ultimately modified independent. Upper body dressing was initially requiring minimum assistance and ultimately modified independent functioning. Lower body dressing was initially standby assistance and ultimately modified independent. Toileting assist was modified independent at admission and dismissal. Toilet transfers cyst was also modified independent upon admission and dismissal. Bed/ chair/wheelchair transfers were initially standby assistance and ultimately standby assistance as well. For physical therapy, the patient's bed/chair/wheelchair transfers were performed independently upon admission and dismissal. Toileting assistance with standby assistance to supervision level. Car transfers were initially independent and subsequently standby assistance. Ambulate an inability was initially standby assistance and ultimately independent. She initially was able to ambulate 400 feet but ultimately over 1000 feet independently. She was able to climb 12 steps with modified independent level at the time of dismissal. She is being dismissed with Ultram (tramadol) 50 mg tablets #30 with no refills. In addition she was given a prescription to obtain an outpatient CBC with differential and BMP in 2 days at [facility] with results to Dr. Viera and Dr. Jeffers. She will follow with Dr. Pepper, Dr. Jeffers and Dr. Uribe as well as Dr. Chavez and Dr. Monahan in [place]. She remains off warfarin at this time due to her anemia. She has not displayed evidence of atrial fibrillation at this time. Hospital course: Assessment Right proximal humerus fracture - 04/15/17. Pancytopenia, new diagnosis. Mechanical fall vs. syncope. Anemia, acute on chronic. Atrial fib/flutter, transient, with pacemaker placement. HTN (hypertension). High cholesterol. Aortic and Mitral valve stenosis. Osteoporosis. Osteoarthritis. Autoimmune liver disease stage IV. Hx of ulcer. Diverticulosis. Esophageal varices, grade 1. Chronic leukopenia. Plan - 04/20/17 Admit to IRU for intensive rehabilitation and pain control per Dr. Bartholomew. Provide safe and supportive environment. Continue orthopedic care for proximal right humerus fracture per Dr. Pepper. Sling in place and N/V intact. Patient previously had nausea with pain medications. Nausea has improved, though oral intake remains poor. Continue to encourage oral intake. Zofran as needed for nausea. Recent severe symptomatic anemia with hemoglobin as low as 6.5 on 04/18/17. Patient received a total of 2 units PRBC (04/18/17, 04/19/17) with improvement. Continues to have some lightheadedness with standing. Monitor closely as significant fall risk. Current hemoglobin stable at 9.0. Will continue to monitor closely. Recent fecal Hemoccult was negative. Monitor closely for signs of bleeding. B12, folate and iron studies were normal. Continue home vitamins. Prior fecal Hemoccult negative. Pancytopenia noted. Patient has previously seen Dr. Jeffers in March 2016. Will consult Dr. Jeffers for further evaluation and expertise. Continue Protonix and Carafate for GI protection and possible GI bleed. Home Prilosec discontinued with initation of Protonix per Dr. Hickey's recommendation. After discussion with Dr. Chavez (cardiology), patient's Coumadin was discontinued on 04/19/17. INR trending down at 2.78. He recommended initiating ASA 325mg daily once patient's hemoglobin is stable and follow up in his clinic within 1 week following discharge from IRU. Continue to monitor closely on telemetry given history of a-fib. Currently in sinus arrhythmia, rate controlled. Will continue to monitor blood counts. SCDs for DVT prophylaxis. Family expressed concern about elevated blood pressure. Review blood pressure trends and medications extensively with Dr. Espinoza. Elevated blood pressure most likely secondary to pain as seen with increase in blood pressure specifically with standing. Will hold off on additional treatment at this time and continue to monitor closely. Will discuss additional pain control measure with Dr. Bartholomew. Discussed patient care and treatment plan extensively with patient's DPOA/ daughter, Amy. She expressed concerns about the patient's blood pressure elevation which appears to be directly linked to the patient's pain. Explained that we will continue to monitor and work on pain control. Amy is ok with decision to move patient to IRU today. All questions were answered as best as possible and family expressed gratitude and is agreeable with treatment plan. Upon discharge, patient's care will be returned to her PCP, Dr. Viera. Addendum: Seen and examined patient on same day as the above note. Agree with consultation note, physical, assessment and plan by nurse practitioner Brie Villaseñor. Comprehensive physical findings correlate to the above note. I've discussed the patient's blood pressure with the patient as well as the daughter. I do believe that the issue with her blood pressure lability is secondary to pain. Mrs. Calderon is remaining rather stoic, and is not using her tramadol significantly. She has not requested her indomethacin so I'm scheduling a very short course of half dosed Toradol for the next few days so that she might have some relief. Documented on Dragon speech to text. Efforts to correct speech recognition errors performed, but variation may exist Plan - 04/22/17 Patient is feeling well. Continue PT/OT per rehab team. BP is improved- she denies any acute pain. She diuresed well. Is down almost 10 kg. Will DC lasix. Increase HCTZ to home dose on 25mg for now. Potassium is stable. Continue to hold Warfarin due to recent need for transfusion. H/H continues to trend slowly down- when stable, start ASA 325mg daily per DR. Chavez. She has been started on BID PPI as well as Carafate per GI recommendations. Will repeat labs in AM for stability. Ammonia is normal. No excessive sedation. Time spent with patient: greater than 35 minutes Resuscitation Status: Full Code Discharge Plan - Med Rec/Dispo Referrals/Follow Up: Devora Chavez MD [Physician] - (Please schedule follow up apt for 1-2 weeks) Joce Pepper MD [Physician] - (please schedule follow up apt for 2 weeks) Harrison Viera DO [Family Provider] - (Dr. Catherine Viera on 05/03/17 at 9:30 am for Hosp. follow-up. [address] [place] [address]) Prescriptions: New PEG 3350 17gm PACKET [Miralax] 17 gm PO DAILY packet Aspirin 1 tab PO DAILY #30 tab Sotalol [Betapace] 120 mg PO HS tab Sucralfate [Carafate] 1 gm PO ACHS tab Continue azaTHIOprine [Imuran] 150 mg PO DAILY #0 Losartan Potassium 50 mg PO BID #0 Omeprazole 20 mg PO HS #0 Calcium Carbonate/Vitamin D3 [Calcium 600-Vit D3 200 Tablet] 1 tab PO DAILY # 0 ALPRAZolam [Xanax] 1 tab PO PRN PRN PRN Reason: anxiety Indomethacin [Indocin] 1 tab PO PRN PRN PRN Reason: arthritic pain Mv,Butch,Min/Iron/Folic Acid/Lut [Complete Multi Tablet] 1 tab PO DAILY hydroCHLOROthiazide [Hydrochlorothiazide] 12.5 mg PO WB #0 Lactulose 10 g PO DAILY #0 Amlodipine Besylate 10 mg PO HS #0 Ondansetron [Zofran Odt] 1 tab PO Q6HR PRN #30 tab PRN Reason: n/v Hydralazine [Apresoline] 10 mg PO BID Senna + Docusate [Senna Plus Tablet] 1 tab PO DAILY tab Changed Sotalol [Betapace] 80 mg PO DAILY #1 Tramadol [Ultram] 50 mg PO QID PRN #30 tab PRN Reason: Pain Sotalol HCl [Sotalol] 1 tab PO HS #1 Discontinued Sotalol [Betapace] 120 mg PO DAILY Oxycodone *IR* [Roxicodone *Ir*] 1 - 2 tab PO QIDPRN PRN PRN Reason: Pain - Disposition [facility]
--- NOTE | 2017-04-25 11:44 | Letter to Referring Physician ---
Dear Dr. Viera, This is a brief note to bring you up-to-date on the status of Fernanda Easton and her stay on the acute inpatient rehabilitation unit at [facility]. As you are likely aware, this patient was admitted to [facility] as an outpatient after she had fallen down some stairs, fracturing her right proximal humerus. She had been seen by Dr. Pepper as an outpatient. Unfortunately she had significant nausea and vomiting as well as pain and was not able to be cared for at home. The patient was stabilized while on outpatient observation and admitted to inpatient rehabilitation unit at [facility] on April 19, 2017. While on inpatient rehabilitation, this patient was seen by occupational therapy and physical therapy and improved overall in her functional ability. She did display significant anemia while on outpatient status (in the hospital) and her hemoglobin was monitored on rehabilitation as well. The lowest hemoglobin recorded was 6.5 g percent for which she did receive a blood transfusion while on outpatient observation. Dismissal hemoglobin is 8.9 on . Most recent INR is 1.75 on April 22, 2017 (we have held her warfarin per recommendation of Dr. Chavez due to the severe anemia). Stool was negative for occult blood. She has also had thrombocytopenia with a low platelet count of 91,000. Her platelet count is 108,000 on April 23, 2017. Dr. Jeffers has been consulted and his evaluation is pending at the time of this dictation. If he is not able to see her during this hospitalization, we would recommend that you contact his office to make an appointment for her to see him in follow-up. Please see a copy of the history and physical examination as well as discharge summary enclosed with this letter for further details. I have arranged for an outpatient CBC with differential and BMP to be obtained on 04/27/2017 with results to you as well as Dr. Jeffers. She was given a prescription for tramadol 50 mg #30 with no refills upon dismissal. However her pain is reasonably well-controlled with non-medicinal means (ice pack). Thank you for allowing us to be involved in this nice patient's care. Please contact me directly should you have any questions regarding their stay on the inpatient rehabilitation unit. Sincerely, Scot Bartholomew M.D.
[2017-04-25] MEDS: POLYETHYL GLYCOL 3350 17gm PACKET PO SCH (12:31)
[2017-04-25 15:39] VITALS: BP 132/76; PULSE 69; RESP 16; TEMP 97.6; O2SAT 99
[2017-04-25] MEDS ORDERED: ONDANSETRON ODT 4 MG TABLET PO ONE (17:13)
== END 2017-04-25 17:23 | disposition home health service (06) | DRG 560 ==
PROVIDERS: ADMIT Internal Medicine; ATTEND Internal Medicine

== ENCOUNTER → 2017-04-19 17:50 | Observation (INO) ==
--- OUTSIDE RECORDS SUMMARY | 2017-04-17 13:03 | External Medical Summary | Clinical Summary ---
:1940 Author Organization [facility] Address [address] [place] [address] Phone Care Team Providers Name Role Phone Unavailable Primary Care Provider Unavailable Source Comments Some departments are not documenting in the electronic medical record. If you do not see the information that you expected, contact Release of Information in the Health Information Management department at [phone] for further assistance in locating additional records.[facility] Social History Tobacco Use Types Packs/Day Years Used Date Never Assessed Sex Assigned at Date Recorded Not on file Last Filed Vital Signs Vital Sign Reading Time Taken Blood Pressure 123/76 07/19/2010 12:41 PM CDT Pulse 78 07/19/2010 12:41 PM CDT Temperature - - Respiratory Rate - - Oxygen Saturation - - Inhaled Oxygen Concentration - - Weight 73.9 kg (163 lb) 07/19/2010 12:41 PM CDT Height 160 cm (5' 3") 07/19/2010 12:41 PM CDT Body Mass Index 28.87 07/19/2010 12:41 PM CDT Plan of Treatment Health Maintenance Due Date Last Done Comments PHYSICAL (COMPREHENSIVE) EXAM 06/22/1947 PERTUSSIS VACCINE 06/22/1951 TETANUS VACCINE 1957 SHINGLES VACCINE 2000 OSTEOPOROSIS SCREENING 2005 PREVNAR/PNEUMOVAX (#1) 2005 INFLUENZA VACCINE 10/25/2016
[2017-04-17 13:26] VITALS: BMI 27.3
--- NOTE | 2017-04-17 13:49 | Orthopedic History & Physical ---
Orthopedic HPI - HPI Comments Mrs. Easton is a 76 year old female who fell 04/15/16 going down some stairs resulting in a fracture right proximal humerus. She hit her head and face in the process as well. She presented to [facility] [place] [facility] where X-rays revealed a right proximal humeral neck fracture. CT of her head was negative for acute intracranial bleed. Dr. Smith placed her in a sling, provided Oxycodone for pain and recommended Orthopaedic follow up with Dr. Pepper today. She has had a difficult time with ADL's at home, has been very nauseous and is requesting further help. Dr. Pepper has spoken with IRU staff who indicate she could likely transfer to their unit tomorrow (04/18/16). Dr. Pepper has therefore admitted her in observation status for pain control. She has multiple medical conditions including HTN, Afib, Mitral valve stenosis, aortic stenosis, liver disease, and hypercholesteremia. Dr. Mitchell has been contacted and has agreed to a consult to aid with medical management. In review of her ER labs done 04/15/16 her most recent INR was 2.64. Hgb was 8.4. Fernanda's current pain is in her right proximal humerus. She describes it as severe, sharp and constant. It is worse with passive or active ROM. She get some relief with use of her sling and Oxycodone. She denies any associated loss of sensation of her hand or arm. She denies inability to flex, ext the wrist and fingers. [facility] Patient Stated Medical History Transient Ischemic Attacks ( Yes TIA) Cardiac Arrhythmia Yes: a-fib Heart Murmur Yes Hypertension Yes Valvular Heart Disease Yes: atoric and mitral valve stenosis Ulcer Yes Anemia Yes: chronic Osteoarthritis Yes Other Reproductive Yes: tumor removed from uterus Clinic Medical History (Last Reviewed 04/17/17 @ 12:41 by Joce Pepper MD) Aortic stenosis (Chronic Medical) Atrial fib/flutter, transient (Chronic Medical) HTN (hypertension) (Chronic Medical) High cholesterol (Chronic Medical) Liver disease (Chronic Medical) Mitral valve stenosis (Chronic Medical) Osteoporosis (Chronic Medical) Surgical History: Surgical History. General: gallbladder, other. Cardiac: pacemaker. Reproductive/: hysterectomy Family History: Family History (Last Reviewed 04/17/17 @ 12:41 by Joce Pepper MD) Father No significant active problems - Social History Smoking status: Never smoker Review of Systems - Constitutional Constitutional: Present: fatigue, dizziness. Absent: weight loss Comments: neg for fever - EENT Ears, nose, mouth, throat: Absent: headaches Comments: neg syncope - Cardiovascular Cardiovascular: Absent: chest pain Vascular: Absent: unilateral swelling - Respiratory Respiratory: Absent: cough, wheezing, chest congestion Additional comments: neg for recent URI - Gastrointestinal Gastrointestinal: Present: nausea, vomiting. Absent: abdominal pain, constipation, diarrhea, dyspepsia - Musculoskeletal Musculoskeletal: Present: as per HPI - Integumentary/Breasts Integumentary: Absent: rash - Neurological Neurological: Absent: headache(s), numbness, paresthesias - Psychiatric Psychiatric: Absent: anxiety, depression - Hematologic/Lymphatic Hematologic/Lymphatic: Present: easy bleeding, easy bruising Medications Home Medications Medication Instructions Recorded Confirmed Type Amlodipine Besylate 10 mg PO HS #0 12/26/13 04/17/17 History Hydralazine HCl 10 mg PO BID #0 12/26/13 04/17/17 History Lactulose 10 g PO DAILY #0 12/26/13 04/17/17 History Losartan Potassium 50 mg PO BID #0 12/26/13 04/17/17 History Omeprazole 20 mg PO HS #0 12/26/13 04/17/17 History azaTHIOprine [Imuran] 150 mg PO DAILY #0 12/26/13 04/17/17 History hydroCHLOROthiazide 12.5 mg PO WB #0 12/26/13 04/17/17 History [Hydrochlorothiazide] Calcium Carbonate/Vitamin D3 1 tab PO DAILY #0 07/23/16 04/17/17 History [Calcium 600-Vit D3 200 Tablet] Warfarin Sodium 5 mg PO DAILY #0 07/23/16 04/17/17 History ALPRAZolam [Xanax] 1 tab PO PRN PRN 04/15/17 04/17/17 History Indomethacin [Indocin] 1 tab PO PRN PRN 04/15/17 04/17/17 History Sotalol HCl [Sotalol] 1 tab PO DAILY 04/15/17 04/17/17 History Sotalol [Betapace] 1 tab PO DAILY 04/15/17 04/17/17 History Allergies Allergy/AdvReac Type Severity Reaction Status Date / Time Iodinated Contrast- Oral and Allergy Unknown Itching Verified 04/17/17 13:22 IV Dye Orthopedic Exam Vital signs: Temperature 97.5 F 04/17/17 13:35 Pulse Rate 60 04/17/17 13:35 Respiratory Rate 18 04/17/17 13:35 Blood Pressure 114/58 04/17/17 13:35 Pulse Oximetry 97 04/17/17 13:35 - Constitutional General Appearance: Present: alert, orientated x3, mild distress - Respiratory Exam Present: non-labored - Cardiovascular Exam Present: pedal pulses intact Capillary Refill: < 2-3 Seconds - Abdominal Exam Absent: tenderness - Extremities Exam Present: pulses intact, joint swelling (right shoulder). Absent: calf tenderness Comments: Right proximal humerus tender to palpation. Limited passive and active ROM secondary to pain. - Integumentary Exam Present: pink, warm, dry, intact - Lymphatic Lymphatic: Absent: lymphedema - Neurological Exam Present: intact to light touch, no deficits - Psychiatric Exam Present: normal affect - Diagnostic results Shoulder x-ray: image reviewed Orthopedic Assessment and Plan (1) Closed fracture of right proximal humerus Status: Acute Qualifiers: Encounter type: initial encounter Fracture alignment: displaced Assessment and Plan: Sling for comfort, non operative treatment. No motion of the right shoulder at this time. Anticipate IRU placement 04/18/16. Medical management of multiple comorbid conditions as per the hospitalist. - Anticoagulation Therapy Anticoagulation: other Hospital Course Summary Disclaimer: The visit summary below is not to be considered part of the above Progress Note.
[2017-04-17] MEDS: NS 1,000 ML IV SCH (15:02)
--- NOTE | 2017-04-17 16:08 | Consult Note ---
Consult Information - Data of Consult Consult date: 04/17/17 Requesting Physician: Joce Pepper MD Primary Care Provider: Harrison Viera DO Family Provider: Harrison Viera DO - Consult Narrative Reason for consult: Medical management History of present illness: Fernanda Goldberg is a 76 year old woman with a right proximal humerus fracture seen in consultation from Dr. Pepper for medical management. She fell on 1 step at home on 04/15/16, fracturing her right humerus. She's not quite sure how she fell, but denies any preceding symptoms such as weakness, dizziness, chest pain , dyspnea, diaphoresis, or swelling. She hit her nose on her way down but denied any loss of consciousness. She reports a recent "cold", which has improved but still has a mild lingering cough. She was seen in the ED on and was given Rx for oxycodone and Zofran ODT -- the oxycodone has been making her nauseated, even though she's taking the Zofran with it. She hasn't been able to eat/drink much d/t nausea. Notes a hx of anemia, and she states it' s been trending down. She recently saw Dr. Monahan who requested more testing. She also reports that she needs to have a valve replacement but she is not medically cleared to go through surgery (she's not sure which valve). Dr. Pepper is planning conservative management. She is planning on IRU transfer on 04/18/17. Past Medical History Anemia Atrial fib/flutter, transient HTN (hypertension) High cholesterol Aortic and Mitral valve stenosis Osteoporosis Osteoarthritis Autoimmune liver disease stage IV Hx of ulcer Surgical History: cholecystectomy. pacemaker. hysterectomy. laparoscopy with lysis of adhesions Family History: Family History (Last Reviewed 04/17/17 @ 12:41 by Joce Pepper MD) Father No significant active problems Family History Updates: Positive for diabetes, heart disease. Parents in their 70-80s, CHF. - Social History Smoking status: Never smoker Substance use type: does not use Alcohol intake frequency: does not drink Household members: none () Current occupational status: retired Previous occupational history: housewife Social history: [employer] Review of Systems All systems PM: 10-point ROS was reviewed, no additional remarkable complaints except - Constitutional Constitutional: Absent: fever(s) - EENMT Eyes: Absent: blurry vision Balance: Absent: vertigo Nose: Present: other (recent "cold") Mouth/Throat: Absent: sore throat, changes in swallowing, painful swallowing - Cardiovascular Cardiovascular: Absent: chest pain, palpitations Vascular: Absent: pedal edema - Respiratory Respiratory: Present: cough. Absent: dyspnea on exertion - Gastrointestinal Gastrointestinal: Present: nausea. Absent: abdominal pain, constipation, diarrhea - Genitourinary Genitourinary: Absent: dysuria - Musculoskeletal Musculoskeletal: Absent: abnormal gait, muscle weakness - Integumentary/Breasts Integumentary: Absent: rash, wounds - Neurological Neurological: Absent: abnormal gait, abnormal speech, confusion, dizziness, frequent falls, loss of vision, weakness - Psychiatric Psychiatric: Absent: abnormal sleep pattern, anxiety - Endocrine Endocrine: Absent: palpitations - Hematologic/Lymphatic Hematologic/Lymphatic: Absent: easy bleeding - Allergic/Immunologic Allergic/Immunologic: Absent: seasonal rhinorrhea Medications Home Medications Medication Instructions Recorded Confirmed Type Amlodipine Besylate 10 mg PO HS #0 12/26/13 04/19/17 History Lactulose 10 g PO DAILY #0 12/26/13 04/19/17 History Losartan Potassium 50 mg PO BID #0 12/26/13 04/19/17 History Omeprazole 20 mg PO HS #0 12/26/13 04/19/17 History azaTHIOprine [Imuran] 150 mg PO DAILY #0 12/26/13 04/19/17 History hydroCHLOROthiazide 12.5 mg PO WB #0 12/26/13 04/19/17 History [Hydrochlorothiazide] Calcium Carbonate/Vitamin D3 1 tab PO DAILY #0 07/23/16 04/19/17 History [Calcium 600-Vit D3 200 Tablet] ALPRAZolam [Xanax] 1 tab PO PRN PRN 04/15/17 04/19/17 History Indomethacin [Indocin] 1 tab PO PRN PRN 04/15/17 04/19/17 History Sotalol HCl [Sotalol] 1 tab PO DAILY 04/15/17 04/19/17 History Hydralazine [Apresoline] 10 mg PO BID 04/17/17 04/19/17 History Mv,Butch,Min/Iron/Folic Acid/Lut 1 tab PO DAILY 04/17/17 04/19/17 History [Complete Multi Tablet] Sotalol [Betapace] 80 mg PO HS 04/17/17 04/19/17 History Oxycodone *IR* [Roxicodone *Ir*] 1 - 2 tab PO QIDPRN PRN 04/19/17 04/19/17 History Allergies Allergy/AdvReac Type Severity Reaction Status Date / Time Iodinated Contrast- Oral and Allergy Unknown Itching Verified 04/19/17 19:50 IV Dye Exam Vital Signs: Temperature 97.5 F 04/17/17 13:35 Pulse Rate 60 04/17/17 13:35 Respiratory Rate 18 04/17/17 13:35 Blood Pressure 114/58 04/17/17 13:35 Pulse Oximetry 97 04/17/17 13:35 Height/Weight/BMI: Height 1.6 m Weight 70.2 kg Body Mass Index 27.3 - Constitutional Present: no acute distress, well nourished, well developed - Routine HEENT Exam Head: Present: normocephalic Eye: Present: PERRL ENT: Present: mucous membranes moist, oropharynx clear - Routine Neck Exam Present: supple. Absent: lymphadenopathy - Routine Respiratory Exam Present: CTA bilaterally - Routine Cardiovascular Exam Present: RRR, S1, S2, murmur (4/6 systolic) - Routine Abdominal Exam Present: soft, normoactive bowel sounds, non distended, non tender - Routine Extremities Exam Present: no edema, joint swelling (right shoulder) - Routine Skin Exam Present: dry, warm, ecchymosis (right mandible) - Routine Neurological Exam Present: alert, oriented X3, normal speech - Routine Psychiatric Exam Present: normal affect, normal thought process, cooperative Results - Labs CBC & Chem 7: 04/19/17 19:11 04/19/17 03:56 Assessment and Plan (1) Closed fracture of right proximal humerus Status: Acute Assessment and Plan: IMPRESSION Right proximal humerus fracture Anemia, acute on chronic Atrial fib/flutter, transient - anticoagulated on Coumadin HTN (hypertension) High cholesterol Aortic and Mitral valve stenosis Osteoporosis Osteoarthritis Autoimmune liver disease stage IV Hx of ulcer PLAN Agree with admission and starting IVF especially with poor oral intake today. Zofran PRN. Change Oxycodone to Tramadol to see if that will lessen her nausea and still control pain. IV Morphine PRN. Discussed anemia with Fernanda - she notes a hx of anemia and has never had a blood transfusion. Her hgb has been trending down. She's not convinced she'd want a blood transfusion, but would consider it if her hgb drops further or she becomes symptomatic. I tried calling Dr. Monahan' office to inquire about recent lab work but they were closed. Will check type and screen with tomorrows lab. Consult pharmacy for Coumadin dosing. INR is 2.93. BMP is stable. Home meds have not been reconciled yet. Anticipate transfer to IRU tomorrow. Thank you for this consult. We will follow Fernanda along with you [place] [facility] [place]. Espinoza: Seen and examined patient on same day as the above note. Agree with consultation note, physical exam, assessment and plan. Comprehensive physical findings correlate to the above note. Documented on Dragon speech to text. Efforts to correct speech recognition errors performed, but variation may exist DVT Prophylaxis: Coumadin - Physician Narrative Narrative: Date: 04/17/17 Time: 1604 Hospital Course Summary Disclaimer: The visit summary below is not to be considered part of the above Progress Note.
--- NOTE | 2017-04-17 17:58 | Pharmacy Consult ---
Pharmacy Consult-Warfarin - Laboratory Information 04/17/17 14:38 INR 2.93 H - Consult Information COUMADIN CONSULT (Initial): Dx: A. FIB. Baseline INR = 2.93. Will give no Warfarin today. This patient has not had a dose of warfarin since Monday04/14/17. I would like to review the a.m. INR to see the decrease to determine new dose. Thank you.
[2017-04-17] MEDS: TRAMADOL 50 MG TABLET PO PRN (20:45)
[2017-04-18] MEDS: NS 1,000 ML IV SCH ×3 (03:51→19:45)
[2017-04-18] MEDS: TRAMADOL 50 MG TABLET PO PRN ×3 (07:36→21:16)
--- NOTE | 2017-04-18 07:40 | Orthopedic Progress Note ---
Date: Date: 04/18/17 Time: 734 Subjective/Severity of Illness: Fernanda states she has less nausea. However, she has only eaten crackers and had sips of water. Her pain is controlled. She denies numbness. Her daughter, Judy, is present. Fernanda's Hgb is down to 6.5, creatine up to 1.4. Fernanda's daughter is requesting hospitalist service talk with Dr. Rocha, "her liver doctor", about Hgb. Fernanda states her typical hemoglobin is about 10. INR is 2.98. I've contacted the hospital service to help facilitate communication. Dr. Looney has orders in for a unit of blood. Orthopedic Objective PO Vital signs: Temperature 97.1 F 04/18/17 00:00 Pulse Rate 66 04/18/17 00:00 Respiratory Rate 16 04/18/17 00:00 Blood Pressure 134/55 04/18/17 00:00 Pulse Oximetry 95 04/18/17 00:00 Height and Weight: Height 5 ft 3 in Weight 154 lb 12.232 oz Body Mass Index 27.3 - Constitutional General Appearance: Present: alert, orientated x3, mild distress - Respiratory Exam Present: non-labored - Cardiovascular Exam Present: pedal pulses intact - Abdominal Exam Absent: tenderness - Extremities Exam Extremities: Present: pulses intact, tenderness (right proximal humerus). Absent: calf tenderness Comments: sling to right arm. - Integumentary Exam Present: pink, warm, dry, intact - Lymphatic Lymphatic: Absent: lymphedema - Neurological Exam Present: intact to light touch, no deficits can extend wrist. - Psychiatric Exam Present: normal affect - Labs Result Diagrams: 04/18/17 03:49 04/18/17 03:49 Abnormal lab results 04/17/17 04/17/17 04/17/17 Range/Units 14:38 14:38 14:38 WBC 3.4 L D (4.5-11.0) T/MM3 RBC 2.09 L (4.00-5.20) M/MM3 Hgb 7.6 L (12-16) GM/DL Hct 23.1 L (36-46) % MCV 110.5 H (80-100) UM3 MCH 36.4 H (26-34) UUG RDW Std Deviation 59.2 H (36.9-50.2) FL Plt Count (130-400) T/MM3 Neut % (Auto) 76.3 H (33-66) % Lymph % (Auto) 14.9 L (23-45) % Eos % (Auto) (0-4) % Neut # (Auto) (1.8-7.7) T/MM3 Lymph # (Auto) 0.5 L (1-4.8) T/MM3 INR 2.93 H (0.99-1.21) BUN 23.0 H (7-17) MG/DL Creatinine (0.7-1.2) MG/DL Glucose 128 H (65-110) MG/DL Crossmatch ([facility]) 04/18/17 04/18/17 04/18/17 Range/Units 03:49 03:49 03:49 WBC 2.8 L (4.5-11.0) T/MM3 RBC 1.79 L (4.00-5.20) M/MM3 Hgb 6.5 L D (12-16) GM/DL Hct 19.9 L D (36-46) % MCV 111.2 H (80-100) UM3 MCH 36.3 H (26-34) UUG RDW Std Deviation 59.6 H (36.9-50.2) FL Plt Count 103 L (130-400) T/MM3 Neut % (Auto) (33-66) % Lymph % (Auto) 22.0 L (23-45) % Eos % (Auto) 7.9 H (0-4) % Neut # (Auto) 1.7 L (1.8-7.7) T/MM3 Lymph # (Auto) 0.6 L (1-4.8) T/MM3 INR (0.99-1.21) BUN 25.0 H (7-17) MG/DL Creatinine 1.4 H D (0.7-1.2) MG/DL Glucose (65-110) MG/DL Crossmatch ([facility]) See Detail 04/18/17 Range/Units 03:49 WBC (4.5-11.0) T/MM3 RBC (4.00-5.20) M/MM3 Hgb (12-16) GM/DL Hct (36-46) % MCV (80-100) UM3 MCH (26-34) UUG RDW Std Deviation (36.9-50.2) FL Plt Count (130-400) T/MM3 Neut % (Auto) (33-66) % Lymph % (Auto) (23-45) % Eos % (Auto) (0-4) % Neut # (Auto) (1.8-7.7) T/MM3 Lymph # (Auto) (1-4.8) T/MM3 INR 2.98 H (0.99-1.21) BUN (7-17) MG/DL Creatinine (0.7-1.2) MG/DL Glucose (65-110) MG/DL Crossmatch ([facility]) H & H 04/17/17 04/18/17 Range/Units 14:38 03:49 Hgb 7.6 L 6.5 L D (12-16) GM/DL Hct 23.1 L 19.9 L D (36-46) % Coagulation 04/17/17 04/18/17 Range/Units 14:38 03:49 INR 2.93 H 2.98 H (0.99-1.21) Orthopedic Assessment and Plan (1) Closed fracture of right proximal humerus Status: Acute Qualifiers: Encounter type: initial encounter Fracture alignment: displaced Assessment and Plan: Sling for comfort, non operative treatment. No motion of the right shoulder at this time. Medical management of multiple comorbid conditions as per the hospitalist. I've spoken with MAXX Stauffer with the hospital service regarding Hgb, Creat and family requests. (2) Anemia Status: Acute Assessment and Plan: as per the hospital service, 1 unit of blood is ordered. Hospital Course Summary Disclaimer: The visit summary below is not to be considered part of the above Progress Note.
--- NOTE | 2017-04-18 08:22 | Pharmacy Consult ---
Pharmacy Consult-Warfarin - Laboratory Information 04/17/17 04/18/17 14:38 03:49 INR 2.93 H 2.98 H - Consult Information We will not give warfarin today. INR increased slightly from yesterday. Continue to hold warfarin until INR begins to decrease. Thanks
[2017-04-18] MEDS: HYDROCHLOROTHIAZIDE 12.5 MG PO SCH (09:46)
[2017-04-18] MEDS: HYDRALAZINE 10 MG PO SCH ×2 (09:46→18:41)
[2017-04-18] MEDS: AZATHIOPRINE 50 MG PO SCH (09:47)
[2017-04-18] MEDS: COMPLETE MULTIVITAMIN PO SCH (09:48)
[2017-04-18] MEDS: LOSARTAN 50 MG PO SCH ×2 (09:49→21:20)
[2017-04-18] MEDS: SOTALOL 120 MG PO SCH (09:49)
[2017-04-18] MEDS: VIT D PO SCH (09:52)
[2017-04-18] MEDS: CALCIUM PO SCH (09:52)
[2017-04-18] MEDS: SENNA + DOCUSATE TABLET PO SCH (09:52)
[2017-04-18] MEDS: PANTOPRAZOLE 40 MG INJECTION IVP SCH ×2 (09:57→21:16)
[2017-04-18] MEDS: LACTULOSE 20 GM/30 ML ORAL LIQUID PO SCH (09:57)
--- NOTE | 2017-04-18 11:32 | Progress Note ---
- Date 04/18/17 Subjective: Fernanda is seen this morning while resting in bed. Her daughter, Amy, is at the bedside and actively participates in the history, asking appropriate questions and providing patient history. Fernanda reports that she is feeling much better today as compared to yesterday when she was admitted. She admits to continued nausea but denies any vomiting. She has been able to eat occasional crackers, especially right before receiving pain medication, but does not have much of an appetite. She states that her pain is well controlled in her right arm which remains in a sling. Dr. Pepper does not feel that the proximal humerus fracture will require surgical repair. Labs today revealed significant anemia with hemoglobin decreased to 6.5, down from 7.6 yesterday. Amy, the patient's daughter, reports that they have been monitoring the patient's hemoglobin with blood draws every couple of months by Dr. Monahan. The lowest hemoglobin they are aware of previously was 7.2. 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 Monahan (GI in [place]). The patient's case was discussed with MAXX Messer at Dr. Monahan office this morning and she revealed that Fernanda had a colonoscopy and EGD in September of 2015 which revealed diverticulosis, 1 polyp and Grade 1 esophageal varices without acute bleed. Fernanda admits that she has seen a produce team lead previous and Dr. Hickey's office was able to verify that she was seen by Dr. Jeffers in March 2016 for leukopenia and anemia, though the results from that visit are unknown. Family is very concerned about the patient 's continued dropping in her hemoglobin. Records indicate that her hemoglobin was 9.6 in November 2016, which the patient reports is around her baseline. She denies any melena or hematochezia. No other acute signs of bleeding. She is chronically anticoagulated on Coumadin with current INR at 2.98 in light of her severe aortic and mitral valve stenosis and follows with Dr. Chavez at [facility] in [place]. She was scheduled for transfer to IRU today which is currently on hold given her current symptomatic anemia. She admits to dizziness and lightheadedness when standing and sitting up. No chest pain, shortness of breath, abdominal pain, vomiting or dysuria. Objective Vital signs: Temperature 96.3 F L 04/18/17 08:00 Pulse Rate 60 04/18/17 09:49 Respiratory Rate 16 04/18/17 08:41 Blood Pressure 143/67 H 04/18/17 08:00 Pulse Oximetry 93 04/18/17 08:41 Height/Weight/BMI: Height 5 ft 3 in Weight 157 lb 6.561 oz Body Mass Index 27.3 Comments: Sitting in bed with daughter at the bedside. - Constitutional Present: no acute distress, well nourished, well developed, cooperative - Routine HEENT Exam Head: Present: normocephalic Eye: Present: PERRL. Absent: conjunctival icterus ENT: Present: mucous membranes moist Comments: area of ecchymosis noted to right lateral chin without abrasion. - Routine Respiratory Exam Present: CTA bilaterally. Absent: rales, respiratory distress, rhonchi, stridor , wheezes, crackles - Routine Cardiovascular Exam Present: RRR, S1, S2, murmur - Routine Abdominal Exam Present: soft, normoactive bowel sounds, non distended, non tender. Absent: rebound, guarding - Routine Extremities Exam Present: no edema, pulses intact. Absent: calf tenderness Comments: right arm in sling and positioned well; 2+ radial pulses bilaterally and N/V intact; some ecchymosis noted to medial and posterior aspect of right upper arm ; no ecchymosis noted to right hip with full ROM passively and good strength to bilateral lower extremities; 2+ pedal pulses bilaterally. - Routine Back/Spine/Pelvis Exam Back/Spine: Present: full ROM. Absent: vertebral tenderness - Routine Musculoskeletal Exam Musculoskeletal: Present: moving extremities well, limited range of motion ( right arm) - Routine Skin Exam Present: dry, warm. Absent: jaundice Comments: afebrile - Routine Neurological Exam Present: alert, oriented X3, moving all extremities, hearing grossly intact, normal speech. Absent: facial asymmetry - Routine Lymphatic Exam Lymphatic: Absent: lymphedema - Routine Psychiatric Exam Present: cooperative Results - Labs CBC & Chem 7: 04/18/17 03:49 04/18/17 03:49 Assessment and Plan (1) Closed fracture of right proximal humerus Current visit: Yes Status: Acute Assessment and Plan: IMPRESSION Right proximal humerus fracture. Mechanical fall vs. syncope. Anemia, acute on chronic. Atrial fib/flutter, transient - anticoagulated on Coumadin. HTN (hypertension). High cholesterol. Aortic and Mitral valve stenosis. Osteoporosis. Osteoarthritis. Autoimmune liver disease stage IV. Hx of ulcer. Diverticulosis. Esophageal varices, grade 1. Chronic leukopenia. PLAN - 04/18/17 Fernanda reports that she is feeling better today. Pain well controlled. Hemoglobin decreased to 6.5 today. History of anemia without prior transfusions. Will type, cross and give 1 unit PRBC now and reassess hemoglobin following transfusion. Discussed patient case with Dr. Hickey's PA, Gui, who reports patient hemoglobin in 2016 was stable at 9.6. Trending down more significantly in past week or so per labs. Seen in ED on 04/15 with hgb 8.4. Decreased to 7.6 on 04/17 and then 6.5 on 04/18. Will continue to monitor closely. Pancytopenia noted today (new diagnosis). WBC 2.8, HGB 6.5 and Plt 103. Patient has previously seen Dr. Jeffers in March 2016. Would recommend follow up with Dr. Jeffers in near future as outpatient. Will obtain fecal Hemoccult for evaluation of acute GI bleed. Most recent endoscopy was September 2015. Change home Prilosec to Protonix 40mg IV BID with the addition of Carafate for GI protection and possible GI bleed. She remains on Coumadin with INR therapeutic. Pharmacy managing. Will continue given severe aortic and mitral valve stenosis until Hemoccult results are available. Patient was accepted to IRU. Will hold off on transfer at this time given acute symptomatic anemia. Family hoping patient can go to [facility], but currently no beds are available. Continue home medications, specifically lactulose. Recheck labs in AM. Vital signs stable. Continue to monitor closely on telemetry. DVT Prophylaxis: SCD's, Coumadin GI Prophylaxis: Protonix Resuscitation Status: Full Code - Time spent with patient Time with patient PN: 50 minutes - Physician Narrative Physician: other (Dr. Espinoza) Narrative: Date: 04/18/17 Time: 1121 Hospital Course Summary Disclaimer: The visit summary below is not to be considered part of the above Progress Note. Hospital Course: PLAN - 04/18/17 Fernanda reports that she is feeling better today. Pain well controlled. Hemoglobin decreased to 6.5 today. History of anemia without prior transfusions. Will type, cross and give 1 unit PRBC now and reassess hemoglobin following transfusion. Discussed patient case with Dr. Hickey's PA, Gui, who reports patient hemoglobin in 2016 was stable at 9.6. Trending down more significantly in past week or so per labs. Seen in ED on 04/15 with hgb 8.4. Decreased to 7.6 on 04/17 and then 6.5 on 04/18. Will continue to monitor closely. Pancytopenia noted today (new diagnosis). WBC 2.8, HGB 6.5 and Plt 103. Patient has previously seen Dr. Jeffers in March 2016. Would recommend follow up with Dr. Jeffers in near future as outpatient. Will obtain fecal Hemoccult for evaluation of acute GI bleed. Most recent endoscopy was September 2015. Change home Prilosec to Protonix 40mg IV BID with the addition of Carafate for GI protection and possible GI bleed. She remains on Coumadin with INR therapeutic. Pharmacy managing. Will continue given severe aortic and mitral valve stenosis until Hemoccult results are available. Patient was accepted to IRU. Will hold off on transfer at this time given acute symptomatic anemia. Family hoping patient can go to [facility], but currently no beds are available. Continue home medications, specifically lactulose. Recheck labs in AM. Vital signs stable. Continue to monitor closely on telemetry.
[2017-04-18] MEDS: SUCRALFATE 1 GM TABLET PO SCH ×3 (15:47→21:39)
[2017-04-19] MEDS: SUCRALFATE 1 GM TABLET PO SCH ×2 (05:59→12:28)
[2017-04-19] MEDS: SOTALOL 120 MG PO SCH (05:59)
[2017-04-19 08:12] VITALS: RESP 18; TEMP 98.6; O2SAT 96
[2017-04-19] MEDS: LACTULOSE 20 GM/30 ML ORAL LIQUID PO SCH (08:24)
[2017-04-19] MEDS: AZATHIOPRINE 50 MG PO SCH (08:25)
[2017-04-19] MEDS: CALCIUM PO SCH (08:25)
[2017-04-19] MEDS: LOSARTAN 50 MG PO SCH (08:25)
[2017-04-19] MEDS: COMPLETE MULTIVITAMIN PO SCH (08:25)
[2017-04-19] MEDS: HYDRALAZINE 10 MG PO SCH (08:25)
[2017-04-19] MEDS: HYDROCHLOROTHIAZIDE 12.5 MG PO SCH (08:25)
[2017-04-19] MEDS: VIT D PO SCH (08:25)
[2017-04-19] MEDS: NS 1,000 ML IV SCH (08:38)
[2017-04-19] MEDS: SENNA + DOCUSATE TABLET PO SCH (08:39)
[2017-04-19] MEDS: PANTOPRAZOLE 40 MG INJECTION IVP SCH (08:39)
[2017-04-19] MEDS: TRAMADOL 50 MG TABLET PO PRN ×2 (08:40→14:09)
--- NOTE | 2017-04-19 09:59 | Progress Note ---
- Date 04/19/17 Subjective: Fernanda is seen this morning in follow up for her acute, symptomatic anemia and recent fall resulting in right proximal humerus fracture. She is seen while resting in bed and reports that she is doing ok. She states that she fell asleep with her glasses on and slept "hard" without hardly moving. She denies any other complaints or concerns including no chest pain, shortness of breath, abdominal pain, diarrhea or dysuria. Her nausea has resolved but her appetite remains poor with poor oral intake yesterday. No cough, congestion or fevers. She received 1 unit of PRBC yesterday, 04/18/17 with improvement in her hemoglobin to 7.8. Repeat CBC today revealed stable hemoglobin at 7.7. She denies any signs of bleeding. Slight decline in WBC to 2.4 as well as slight decline in platelets to 93. After discussion with Dr. Chavez, her Coumadin was discontinued. INR trending down, currently at 2.78. BMP stable with improvement in renal function with SCr at 0.9 and BUN trending down at 21. Initial studies for anemia were completed and B12 was stable at 964, folate >20 and iron was good. On exam, fecal Hemoccult was obtained after assisting Fernanda onto her left side with extra precautions for comfort and placement of her right arm. Following the procedure, Fernanda felt like she needed to have a BM and was assisted to the bathroom. She complained of feeling very lightheaded and was noted to sway slightly while ambulating and after sitting down on the toilet. She complained of severe pain to her right arm as well as feeling like she was going to pass out. She became slightly diaphoretic and nauseous without vomiting. Her symptoms improved with sitting and cool ice-pack was placed on her neck. She was unable to have a BM and was assisted back to bed. Due to her intense pain, she was give morphine 2mg IV as well as zofran 4mg IV with some improvement. Objective Vital signs: Temperature 98.6 F 04/19/17 08:00 Pulse Rate 62 04/19/17 08:00 Respiratory Rate 18 04/19/17 08:00 Blood Pressure 126/64 04/19/17 08:00 Pulse Oximetry 96 04/19/17 08:00 Height/Weight/BMI: Height 5 ft 3 in Weight 159 lb 13.362 oz Body Mass Index 27.3 Comments: Patient is initially seen while resting in bed; near syncopal episode after getting up and ambulating with assistance to the toilet; severe pain to right arm with movement and ambulation. - Constitutional Present: mild distress, cooperative Comments: Patient is very stoic and is very cautious about taking pain medication despite severe pain. - Routine HEENT Exam Head: Present: normocephalic Eye: Present: PERRL. Absent: conjunctival icterus ENT: Present: mucous membranes dry Comments: ecchymosis noted to right lower jaw, healing. - Routine Respiratory Exam Present: CTA bilaterally. Absent: rales, respiratory distress, rhonchi, stridor , wheezes, crackles - Routine Cardiovascular Exam Present: murmur Comments: sinus arrhythmia - Routine Abdominal Exam Present: soft, normoactive bowel sounds, non distended, non tender. Absent: rebound, guarding - Routine Rectal Exam Visual: Present: normal rectal tone. Absent: bloody stool, dangelo blood, tenderness, heme (+) stool Digital: Present: external hemorrhoid. Absent: thrombosed external hemorrhoid Comments: multiple external hemrrhoids noted without erythema, swelling or thrombosis; no fissures or apparent bleeding; fecal Hemoccult test performed and negative per lab. Patient tolerated procedure well. - Routine Extremities Exam Present: edema (trace), pulses intact. Absent: cyanosis, calf tenderness Comments: bilateral radial pulses 2+; limited movement of right arm due to pain and placement in sling; N/V intact. - Routine Back/Spine/Pelvis Exam Back/Spine: Present: full ROM. Absent: vertebral tenderness - Routine Musculoskeletal Exam Musculoskeletal: Present: no clubbing or cyanosis, moving extremities well, limited range of motion (right arm) - Routine Skin Exam Present: dry, warm. Absent: jaundice Comments: afebrile; ecchymosis noted to right medial upper arm; faint areas of ecchymosis noted to right anterior and lateral thigh. - Routine Neurological Exam Present: alert, oriented X3, CN II-XII intact, moving all extremities, hearing grossly intact, normal speech. Absent: facial asymmetry - Routine Lymphatic Exam Lymphatic: Absent: lymphedema - Routine Psychiatric Exam Present: cooperative, good insight, good judgment Results - Labs CBC & Chem 7: 04/19/17 08:56 04/19/17 03:56 Assessment and Plan (1) Closed fracture of right proximal humerus Current visit: Yes Status: Acute Assessment and Plan: IMPRESSION Right proximal humerus fracture. Pancytopenia, new diagnosis. Mechanical fall vs. syncope. Anemia, acute on chronic. Atrial fib/flutter, transient - anticoagulated on Coumadin. HTN (hypertension). High cholesterol. Aortic and Mitral valve stenosis. Osteoporosis. Osteoarthritis. Autoimmune liver disease stage IV. Hx of ulcer. Diverticulosis. Esophageal varices, grade 1. Chronic leukopenia. PLAN - 04/19/17 Patient had a near syncopal episode after getting up with assistance and ambulating to the bathroom. She complained of dizziness, lightheadedness with increased pain to her right arm. She then became slightly diaphoretic and nauseous which improved with sitting down on the toilet and an ice pack. Once she was done with the restroom, she was assisted back into bed and given Morphine 2mg IV as well as Zofran 4 mg IV. She states that her pain is fairly well controlled when she doesn't move. Continue orthopedic care for proximal right humerus fracture per Dr. Pepper. Sling in place and N/V intact. Continue NS f or hydration at 80cc/hr. Monitor for fluid overload. Patient previously had nausea with pain medications. Nausea has improved, though oral intake remains poor. Continue to encourage oral intake. Zofran as needed for nausea. Hemoglobin improved from 6.5 to 7.8 yesterday (04/18/17) after blood transfusion with 1 unit PRBC. Repeat hemoglobin stable today at 7.7. No signs of bleeding. Given patient's continued symptomatic anemia, will give another 1 unit of PRBC now. Recheck hemoglobin following transfusion. B12, folate and iron all stable. Fecal Hemoccult was negative. Persistent pancytopenia today with slight decrease in WBC 2.4, Hgb 7.7 and slight decrease in Plt at 93. Patient has previously seen Dr. Jeffers in March 2016. Will consult Dr. Jeffers for further evaluation and expertise. Continue Protonix and Carafate for GI protection and possible GI bleed. After discussion with Dr. Chavez (cardiology), patient's Coumadin was discontinued. INR trending down at 2.78. He recommended initiating ASA 325mg daily once patient's hemoglobin is stable and follow up in his clinic within 1 week following discharge. Continue to monitor closely on telemetry given history of a-fib. Currently in sinus arrhythmia, rate controlled. Will continue to monitor blood counts. SCDs for DVT prophylaxis. Patient was accepted to IRU. Anticipate discharge in the near future. Discussed patient care and treatment plan extensively with patient's DPOA/ daughter, Amy. She expressed concerns about the patient's blood pressure elevation which appears to be directly linked to the patient's pain. Explained that we will continue to monitor and work on pain control. Amy is ok with decision to move patient to IRU today. All questions were answered as best as possible and family expressed gratitude and is agreeable with treatment plan. Addendum: Seen and examined patient on same day as the above note. Agree with history, physical, assessment and plan. Comprehensive physical findings correlate to the above note. Documented on Dragon speech to text. Efforts to correct speech recognition errors performed, but variation may exist DVT Prophylaxis: SCD's GI Prophylaxis: Protonix Resuscitation Status: Full Code - Time spent with patient Time with patient PN: 50 minutes - Physician Narrative Physician: other (Dr. Orta) Narrative: Date: 04/19/17 Time: 0950 Hospital Course Summary Disclaimer: The visit summary below is not to be considered part of the above Progress Note. Hospital Course: PLAN - 04/18/17 Fernanda reports that she is feeling better today. Pain well controlled. Hemoglobin decreased to 6.5 today. History of anemia without prior transfusions. Will type, cross and give 1 unit PRBC now and reassess hemoglobin following transfusion. Discussed patient case with Dr. Hickey's PA, Gui, who reports patient hemoglobin in 2016 was stable at 9.6. Trending down more significantly in past week or so per labs. Seen in ED on 04/15 with hgb 8.4. Decreased to 7.6 on 04/17 and then 6.5 on 04/18. Will continue to monitor closely. Pancytopenia noted today (new diagnosis). WBC 2.8, HGB 6.5 and Plt 103. Patient has previously seen Dr. Jeffers in March 2016. Would recommend follow up with Dr. Jeffers in near future as outpatient. Will obtain fecal Hemoccult for evaluation of acute GI bleed. Most recent endoscopy was September 2015. Change home Prilosec to Protonix 40mg IV BID with the addition of Carafate for GI protection and possible GI bleed. She remains on Coumadin with INR therapeutic. Pharmacy managing. Will continue given severe aortic and mitral valve stenosis until Hemoccult results are available. Patient was accepted to IRU. Will hold off on transfer at this time given acute symptomatic anemia. Family hoping patient [facility] go to [facility], but currently no beds are available. Continue home medications, specifically lactulose. Recheck labs in AM. Vital signs stable. Continue to monitor closely on telemetry. PLAN - 04/19/17 Patient had a near syncopal episode after getting up with assistance and ambulating to the bathroom. She complained of dizziness, lightheadedness with increased pain to her right arm. She then became slightly diaphoretic and nauseous which improved with sitting down on the toilet and an ice pack. Once she was done with the restroom, she was assisted back into bed and given Morphine 2mg IV as well as Zofran 4 mg IV. She states that her pain is fairly well controlled when she doesn't move. Continue orthopedic care for proximal right humerus fracture per Dr. Pepper. Sling in place and N/V intact. Continue NS f or hydration at 80cc/hr. Monitor for fluid overload. Patient previously had nausea with pain medications. Nausea has improved, though oral intake remains poor. Continue to encourage oral intake. Zofran as needed for nausea. Hemoglobin improved from 6.5 to 7.8 yesterday (04/18/17) after blood transfusion with 1 unit PRBC. Repeat hemoglobin stable today at 7.7. No signs of bleeding. Given patient's continued symptomatic anemia, will give another 1 unit of PRBC now. Recheck hemoglobin following transfusion. B12, folate and iron all stable. Fecal Hemoccult was negative. Persistent pancytopenia today with slight decrease in WBC 2.4, Hgb 7.7 and slight decrease in Plt at 93. Patient has previously seen Dr. Jeffers in March 2016. Will consult Dr. Jeffers for further evaluation and expertise. Continue Protonix and Carafate for GI protection and possible GI bleed. After discussion with Dr. Chavez (cardiology), patient's Coumadin was discontinued. INR trending down at 2.78. He recommended initiating ASA 325mg daily once patient's hemoglobin is stable and follow up in his clinic within 1 week following discharge. Continue to monitor closely on telemetry given history of a-fib. Currently in sinus arrhythmia, rate controlled. Will continue to monitor blood counts. SCDs for DVT prophylaxis. Patient was accepted to IRU. Anticipate discharge in the near future. Discussed patient care and treatment plan extensively with patient's DPOA/ daughter, Amy. She expressed concerns about the patient's blood pressure elevation which appears to be directly linked to the patient's pain. Explained that we will continue to monitor and work on pain control. Amy is ok with decision to move patient to IRU today. All questions were answered as best as possible and family expressed gratitude and is agreeable with treatment plan.
--- NOTE | 2017-04-19 10:50 | Discharge Summary ---
Discharge Information Date of admission: 04/17/17 12:50 Anticipated date of discharge: 04/19/17 Attending Physician: Joce Pepper MD Primary care physician: Harrison Viera DO Consults: 04/17/17 13:34 Physician Consult [CONS] Routine Consulting Provider: Sariah Bishop Reason For Exam: medical management Ordering Provider has Notified Health Psychologist: No - Discharge Diagnosis (1) Closed fracture of right proximal humerus Status: Acute Right proximal humerus fracture, acute. Pancytopenia, new diagnosis. Mechanical fall vs. syncope. Anemia, acute on chronic. Atrial fib/flutter, transient. HTN (hypertension). Hyperlipidemia. Aortic and Mitral valve stenosis. Osteoporosis. Osteoarthritis. Autoimmune liver disease stage IV. Hx of ulcer. Diverticulosis. Esophageal varices, grade 1. Chronic leukopenia. - Procedures Procedures: Blood transfusion on 04/18/17 - 1 unit PRBC Hgb prior to transfusion - 6.5 Hgb post transfusion - 7.7 Blood transfusion on 04/19/17 - 1 unit PRBC Hgb prior to transfusion - 7.7 Hgb post transfusion - pending - Laboratory Labs: 04/19/17 08:56 04/19/17 03:56 Objective Vital signs: Temperature 98.6 F 04/19/17 08:00 Pulse Rate 62 04/19/17 08:00 Respiratory Rate 18 04/19/17 08:00 Blood Pressure 126/64 04/19/17 08:00 Pulse Oximetry 96 04/19/17 08:00 Height/Weight/BMI: Height 5 ft 3 in Weight 159 lb 13.362 oz Body Mass Index 27.3 Hospital Course This is a general summary of the patient's hospital course. For more details refer to the complete medical record. Hospital course: PLAN - 04/18/17 Fernanda reports that she is feeling better today. Pain well controlled. Hemoglobin decreased to 6.5 today. History of anemia without prior transfusions. Will type, cross and give 1 unit PRBC now and reassess hemoglobin following transfusion. Discussed patient case with Dr. Hickey's PAGui, who reports patient hemoglobin in 2016 was stable at 9.6. Trending down more significantly in past week or so per labs. Seen in ED on 04/15 with hgb 8.4. Decreased to 7.6 on 04/17 and then 6.5 on 04/18. Will continue to monitor closely. Pancytopenia noted today (new diagnosis). WBC 2.8, HGB 6.5 and Plt 103. Patient has previously seen Dr. Jeffers in March 2016. Would recommend follow up with Dr. Jeffers in near future as outpatient. Will obtain fecal Hemoccult for evaluation of acute GI bleed. Most recent endoscopy was September 2015. Change home Prilosec to Protonix 40mg IV BID with the addition of Carafate for GI protection and possible GI bleed. She remains on Coumadin with INR therapeutic. Pharmacy managing. Will continue given severe aortic and mitral valve stenosis until Hemoccult results are available. Patient was accepted to IRU. Will hold off on transfer at this time given acute symptomatic anemia. Family hoping patient can go to [facility], but currently no beds are available. Continue home medications, specifically lactulose. Recheck labs in AM. Vital signs stable. Continue to monitor closely on telemetry. PLAN - 04/19/17 Patient had a near syncopal episode after getting up with assistance and ambulating to the bathroom. She complained of dizziness, lightheadedness with increased pain to her right arm. She then became slightly diaphoretic and nauseous which improved with sitting down on the toilet and an ice pack. Once she was done with the restroom, she was assisted back into bed and given Morphine 2mg IV as well as Zofran 4 mg IV. She states that her pain is fairly well controlled when she doesn't move. Continue orthopedic care for proximal right humerus fracture per Dr. Pepper. Sling in place and N/V intact. Continue NS f or hydration at 80cc/hr. Monitor for fluid overload. Patient previously had nausea with pain medications. Nausea has improved, though oral intake remains poor. Continue to encourage oral intake. Zofran as needed for nausea. Hemoglobin improved from 6.5 to 7.8 yesterday (04/18/17) after blood transfusion with 1 unit PRBC. Repeat hemoglobin stable today at 7.7. No signs of bleeding. Given patient's continued symptomatic anemia, will give another 1 unit of PRBC now. Recheck hemoglobin following transfusion. B12, folate and iron all stable. Fecal Hemoccult was negative. Persistent pancytopenia today with slight decrease in WBC 2.4, Hgb 7.7 and slight decrease in Plt at 93. Patient has previously seen Dr. Jeffers in March 2016. Will consult Dr. Jeffers for further evaluation and expertise. Continue Protonix and Carafate for GI protection and possible GI bleed. After discussion with Dr. Chavez (cardiology), patient's Coumadin was discontinued. INR trending down at 2.78. He recommended initiating ASA 325mg daily once patient's hemoglobin is stable and follow up in his clinic within 1 week following discharge. Continue to monitor closely on telemetry given history of a-fib. Currently in sinus arrhythmia, rate controlled. Will continue to monitor blood counts. SCDs for DVT prophylaxis. Patient was accepted to IRU. Anticipate discharge in the near future. Discussed patient care and treatment plan extensively with patient's DPOA/ daughter, Amy. She expressed concerns about the patient's blood pressure elevation which appears to be directly linked to the patient's pain. Explained that we will continue to monitor and work on pain control. Amy is ok with decision to move patient to IRU today. All questions were answered as best as possible and family expressed gratitude and is agreeable with treatment plan. Discharge Plan - Discharge Disposition Discharge Date: 04/19/17 Disposition: 62 To [facility] [place] [facility] Re[facility] *Condition: Stable Reason For Visit (Visit label in EMR): right humerus fracture, intractable pain - Discharge Medications *Discharge Medications: New Senna + Docusate [Senna Plus Tablet] 1 tab PO DAILY tab Continue azaTHIOprine [Imuran] 150 mg PO DAILY #0 Losartan Potassium 50 mg PO BID #0 Calcium Carbonate/Vitamin D3 [Calcium 600-Vit D3 200 Tablet] 1 tab PO DAILY # 0 ALPRAZolam [Xanax] 1 tab PO PRN PRN PRN Reason: anxiety Indomethacin [Indocin] 1 tab PO PRN PRN PRN Reason: arthritic pain Sotalol [Betapace] 120 mg PO DAILY Sotalol [Betapace] 80 mg PO HS Mv,Butch,Min/Iron/Folic Acid/Lut [Complete Multi Tablet] 1 tab PO DAILY hydroCHLOROthiazide [Hydrochlorothiazide] 12.5 mg PO WB #0 Lactulose 10 g PO DAILY #0 Amlodipine Besylate 10 mg PO HS #0 Ondansetron [Zofran Odt] 1 tab PO Q6HR PRN #30 tab PRN Reason: n/v Hydralazine [Apresoline] 10 mg PO BID Discontinued Warfarin Sodium 5 mg PO DAILY #0 No Action Omeprazole 20 mg PO HS #0 Sotalol HCl [Sotalol] 1 tab PO DAILY Oxycodone *IR* [Roxicodone *Ir*] 1 - 2 tab PO QID PRN #30 tab PRN Reason: Pain - Discharge Packet/Instructions *Diet: Cardiac diet with 2g salt restriction. *Activity: as tolerated with assistance. *Pain Management/Treatment: Morphine 2mg IV Q3-4 hours as needed for pain. Tramadol 50mg po Q6 hours as needed for pain. Tylenol 650mg po Q5 hours as needed for pain. *Wound Care: not applicable. Additional Instructions: Wear sling to right arm for comfort and non-operative treatment of humerus fracture. No motion of the right shoulder at this time. Follow up with Dr. Pepper 1-2 weeks following discharge from IRU. Follow up with Dr. Chavez 1 week following discharge from IRU to discuss/evaluate anemia and discontinuation of coumadin on 04/18/17 due to concerns of possible GI bleed. Follow up with Dr. Monahan 1 week following discharge from IRU to discuss/ evaluate anemia. *Expected Signs/Symptoms: continued pain to right arm with gradual improvement, fatigue and generalized weakness. *Notify Physician if: fever >101, chest pain, increased shortness of breath, blood in stools, persistent nausea, passing out or an additional concerning symptoms. *During Business Hours Contact: Dr. Harrison Viera's office at [phone]. *After Business Hours Contact: [facility] deep submergence vehicle operator at [phone] and ask to speek with the physician biofuels production technician for Dr. Harrison Viera. *Pending Lab/Results: No Pending Lab - IRU/GEN Discharge/Transfer - Referrals/Follow Up *Referrals/Follow Up: Joce Pepper MD [Physician] - 1 Week Devora Chavez MD [Physician] - 1 Week Harrison Viera DO [Family Provider] - 1 Week Carlos Monahan MD [Physician] - 1 Week - Patient Handouts Patient Handouts: Blood Transfusion (GEN) Physician Narrative - Narrative Attestation Narrative: Date: 04/19/17 Time: [id number]
[2017-04-19 10:55] VITALS: BP 221/121; PULSE 72
[~2017-04-19 17:50] MED LIST changes: +ALPRAZolam 0.25 MG TABLET PO PRN; -AMLO10TA2 PO; +AMLODIPINE 10 MG PO SCH; -ASPI-557 PO; -AZAT50TA PO; -CALC-1012; +CALCIUM 500 + VIT D 200 TABLET PO SCH; -CLOP75TA; -COLE625T PO; +DiphenhydrAMINE 50 MG/ML INJECTION IVP ONE; -HYDR25TA PO; -LACT10SO8 PO; -LOSA50TA52 PO; +MORPHINE SULFATE 10 MG SYRINGE IVP PRN; +MORPHINE SULFATE 2mg INJECTION IVP PRN; -MULT-57 PO; +NS FLUSH BAG 500ml IV PRN; -OMEP-122 PO; +OMEPRAZOLE 20 MG CAPSULE PO SCH; +ONDANSETRON 4 MG/2 ML INJECTION IVP PRN; +ONDANSETRON ODT 4 MG TABLET PO PRN; +Oxycodone *IR* 5 MG TABLET PO PRN; +SOTALOL 120 MG TABLET PO SCH; +SOTALOL 80 MG PO SCH; +WARFARIN - PHARMACY CONSULT MC ONE; -[UNRECOGNIZED DRUG - CODE] PO
== END ==
LOC: SRG
PROVIDERS: ADMIT Orthopaedic Surgery; ATTEND Orthopaedic Surgery